=== PATIENT | female | born 1955 | race Caucasian/White ===

== ENCOUNTER 2017-01-03 07:51 | Inpatient (IN) ==
[2017-01-03] MEDS ORDERED: ONDANSETRON 4 MG/2 ML VIAL IV STA (08:14)
[2017-01-03] MEDS ORDERED: SODIUM CHLORIDE 0.9% 500 ML IV STA (08:14)
[2017-01-03] MEDS ORDERED: AMPICILLIN/SULBACTAM 3,000 MG in SODIUM CHLORIDE 0.9% 100 ML IV STA (08:14)
[2017-01-03] MEDS ORDERED: ONDANSETRON 4 MG/2 ML VIAL ONE (08:34)
[2017-01-03] MEDS ORDERED: AMPICILLIN/SULBACTAM 3,000 MG VIAL ONE (08:34)
[2017-01-03 08:42] LABS: Basophils % 0.1 % (0.0-0.8); Hematocrit 42.2 VOL% (35.7-47.0); Hemoglobin 15.3 GM/DL (12.0-16.0); Immature Granulocytes % 4.2 %; Immature Granulocytes Absolute 0.97 #; Lymphocytes # 1.4 10*3/uL (1.4-4.0); Lymphocytes % 6.3 % (21.3-54.2); Mean Corpuscular HGB Conc 36.3 GM/DL (32-36); Mean Corpuscular Hemoglobin 33 PG (27-34); Mean Platelet Volume 10.8 FL (9.6-12.0); Monocytes % 8.6 % (1.7-12.7); Neutrophils # 18.5 10*3/uL (1.4-7.4); Neutrophils % 80.8 % (38.7-73.9); Platelet Count 271 T/CUMM (130-400); Red Blood Count 4.69 MC/CUMM (3.8-5.5); Red Cell Distribution Width 13.4 % (9.3-17.3)
--- NOTE | 2017-01-03 08:57 | XRay Report ---
XR chest 1V portable Indication: Shortness of breath Comparison: Chest x-ray 12/20/2013. Technique: Portable AP chest was performed. Findings: Ill-defined density right lung apex may reflect confluence of shadows. Emphysematous changes are suggested with interstitial pattern similar to comparison study. Heart size is normal. Calcified granuloma right lower lobe is suggested. Additional density within the soft tissues of the left breast is demonstrated superior to the nipple shadow. Significance is uncertain. Bones and soft tissues are stable. Impression: 1. Emphysematous changes are suggested. No specific evidence of acute superimposed pathology is demonstrated. 2. Density within the soft tissues of the superior left breast is of uncertain significance. Correlation with mammography is recommended. 01/03/2017 8:52 AM PROCEDURE INTERPRETED AT [facility] DEPARTMENT OF RADIOLOGY Final Report Signed by: Dr. Jake Jo
[2017-01-03 08:59] LABS: Band Neutrophils 13 % (0-10); Eosinophils 2 % (0-10); Lymphocytes 3 % (20-55); Nucleated Red Blood Cells 1 (0-5); Segmented Neutrophils 72 % (50-85); Total Cells Counted 100
[2017-01-03 09:00] LABS: Platelet Estimate Normal
[2017-01-03 09:05] LABS: Lactic Acid 4.4 MMOL/L (0.4-2.0)
[2017-01-03 09:15] LABS: Alanine Aminotransferase 34 U/L (13-56); Albumin 2.1 G/DL (3.4-5.0); Alkaline Phosphatase 122 U/L (45-117); Aspartate Amino Transferase 66 U/L (0-37); Blood Urea Nitrogen 61 MG/DL (7-18); Calcium 7.6 MG/DL (8.5-10.1); Glucose 165 MG/DL (74-106); Magnesium 2.5 MG/DL (1.8-2.4); Osmolality,Calculated 271.5 MOS/KG (273-304); Potassium 3.8 MMOL/L (3.5-5.1); Sodium 125 MMOL/L (136-145); Total Protein 7.1 G/DL (6.4-8.3); Troponin I Only < 0.015 NG/ML (0.00-0.045)
[2017-01-03] MEDS ORDERED: SODIUM CHLORIDE 0.9% 1,000 ML IV STA (09:19)
--- NOTE | 2017-01-03 10:00 | CT Report ---
CT abdomen pelvis w con Indication: Generalized abdominal pain. Comparison: None. Technique: CT of the abdomen and pelvis was performed following administration of intravenous contrast. The CT examination was performed using one or more of the following dose reduction techniques: Automatic exposure control, adjustment of the mA and kV according to patient size, or iterative reconstruction techniques. Findings: Calcified nodule right lower lobe compatible with granuloma is demonstrated. Lungs demonstrate emphysematous changes. No pleural effusions are present. Moderately sized hiatal hernia is demonstrated. There is diffuse enlargement of large bowel and diffuse wall thickening involving large bowel from the level of the cecum through the sigmoid colon. Diverticula in the region of the sigmoid colon are suggested. The large bowel wall measures up to 12 13 mm in thickness in the region of the splenic flexure and in the region of the cecum, the bowel wall measures up to 14 mm in thickness. There does appear to be enhancement. The SMA and MARTIN are patent. Large amount of ascites is present. There is no evidence of free air. Moderately advanced atherosclerotic calcification of the aorta, renal arteries, and iliac arteries is demonstrated. The appearance of the liver, gallbladder, spleen, pancreas, and adrenal glands is unremarkable. With exception of the hiatal hernia described above, stomach and duodenum demonstrate no significant abnormality. No specific abnormality of small bowel is present. Appendix cannot be identified. Urinary bladder is grossly distended. The uterus and right ovary is grossly unremarkable in appearance. Within the left pelvis, there is a fluid filled curvilinear tubular structure possibly reflective of the left fallopian tube. No acute osseous pathology is demonstrated. Facet joint degenerative changes are noted within the lower lumbar spine. Soft tissues and musculature of the body wall demonstrate no significant abnormalities. Impression: 1. Grossly abnormal appearance of the colon is demonstrated. There is diffuse wall thickening throughout the large bowel and additionally present at the level of the sigmoid colon, scattered diverticula are present. This appearance could reflect colitis as could be seen with C. difficile or other infectious etiologies. Vascular supply appears to be fairly well preserved with flow noted within SMA and MARTIN as well as celiac branches. 2. A moderate to large amount of ascites is demonstrated. 3. Tubular structure within the left pelvis possibly reflects fluid-filled fallopian tube or a nonopacified small bowel. 4. Moderately advanced atherosclerotic calcification of the aorta and iliac arteries is demonstrated. 5. A moderate hiatal hernia is present. 01/03/2017 9:46 AM PROCEDURE INTERPRETED AT [facility] DEPARTMENT OF RADIOLOGY Final Report Signed by: Dr. Jake Jo
--- NOTE | 2017-01-03 10:01 | Emergency Department Note ---
Vel Alonzo Manpreet, am scribing for, and in the presence of, Alonso Kothari MD 08:15. Taye Alonzo Doug C, MD, personally performed the services described in this documentation, ascribed by Tony Crowder in my presence, and it is both accurate and complete [id number] . Arrival - Arrival Chief Complaint: Nausea/Vomiting/Diarrhea Stated Complaint: N/V for 3 days ED Nursing Triage Note: Pt c/o Diarrhea and weakness x 3 days. Mode of Arrival: Wheelchair Limitations: No Limitations Source: Patient - History of Present Illness HPI Narrative: Patient 61-year-old white female presents emergency room complaining of abdominal pain, bloating and diarrhea for 3 days. Patient states she says subjective fever and she is also had chills but she denies any nausea or vomiting. She has not seen any blood in her stool and she denies melena. Patient states her appetite's been diminished but she denies dyspepsia or dysphasia. Patient states she has never had anything like this before. She does admit to heavy alcohol abuse in the past but states she has not drank in over 5 years. She denies any previous surgeries. Onset (ago): day(s) Consistency: constant Severity scale (1-10): 3 Allergies/Adverse Reactions: Allergies Allergy/AdvReac Type Severity Reaction Status Date / Time No Known Allergies Allergy Verified 01/03/17 07:56 Review of System - Review of System 12 point system: reviewed and no additional remarkable complaints except as stated - Review of System Constitutional: Present: chills, fever, weakness. Absent: diaphoresis Respiratory: Absent: cough Cardiovascular: Absent: chest pain Gastrointestinal: Present: abdominal pain, nausea, diarrhea. Absent: vomiting, constipation, hematemesis, melena, hematochezia Genitourinary female: Absent: dysuria, frequency Musculoskeletal: Absent: back pain Skin: Absent: rash, lesions Neurological: Absent: headache Psychiatric: Absent: anxiety, depression Endocrine: Absent: fatigue, polydipsia, polyuria Hematological/Lymphatic: Absent: easy bleeding, easy bruising Medical,Surgical,& Family Hx - Medical History Cardio: History of: Hypertension Respiratory: History of: COPD Musculoskeletal: History of: Back/Neck Problems - Surgical History Surgical History: noncontributory (Patient denies prior surgeries) - Family History Family History: Reports;: Family Heart Disease (Both mother and father of heart disease.) Denies;: Family Cancer - Social History Smoking Status: Current every day smoker Exam Vital Signs: Vital Signs Temperature 98.1 F 01/03/17 09:39 Pulse Rate 126 H 01/03/17 09:39 Respiratory Rate 20 01/03/17 09:39 Blood Pressure 143/102 01/03/17 09:39 O2 Sat by Pulse Oximetry 98 01/03/17 07:53 - General General appearance: alert, in distress (Patient is noted to have tachypnea) - Head Head exam: Present: atraumatic, normocephalic, normal inspection - Eye Eye exam: Present: normal appearance, PERRL, EOMI - ENT ENT exam: Present: normal exam, normal oropharynx, mucous membranes dry - Neck Neck exam: Present: normal inspection, full ROM, trachea midline, tenderness. Absent: thyromegaly - Chest Chest inspection: Present: normal inspection, symmetric chest wall rise. Absent : tenderness - Respiratory Respiratory exam: Present: normal lung sounds bilaterally. Absent: accessory muscle use - Cardiovascular Cardiovascular exam: Present: normal rhythm, tachycardia, normal heart sounds. Absent: regular rate, murmur, rubs - Abdominal Exam Abdominal exam: Present: distention, tenderness (Diffuse direct tenderness), diminished bowel sounds, other (Tympany to percussion in all quadrants). Absent : soft, guarding, rebound, normal bowel sounds - Extremities Exam Extremities exam: Present: normal inspection, full ROM. Absent: tenderness - Back Exam Back exam: Present: normal inspection, full ROM. Absent: tenderness - Neurological Exam Neurological exam: Present: alert, oriented X3, CN II-XII intact, reflexes normal. Absent: motor sensory deficit - Psychiatric Psychiatric exam: Present: normal affect, normal mood - Skin Skin exam: Present: warm, dry, intact, normal color. Absent: pallor Course Course Narrative: Patient's clinical presentation, laboratory radiograph findings were discussed with Kemi who is covering the hospitalist service. She will arrange for patient to be seen here in the emergency room and intensive care bed will be sought. Patient is aware of the critical nature of her illness. Results - Labs CBC & BMP: 01/03/17 08:23 01/03/17 08:23 Lab Results: I have reviewed the patients labs Labs: Laboratory Tests 01/03/17 08:23 WBC 23.0 H RBC 4.69 Hgb 15.3 Hct 42.2 MCHC 36.3 H Neut % (Auto) 80.8 H Lymph % (Auto) 6.3 L Neut # (Auto) 18.5 H [place] # (Auto) 2.0 H Laboratory Tests 01/03/17 01/03/17 08:23 08:23 WBC 23.0 H MCHC 36.3 H Neut % (Auto) 80.8 H Lymph % (Auto) 6.3 L Neut # (Auto) 18.5 H [place] # (Auto) 2.0 H Band Neutrophils 13 H Lymphocytes 3 L Sodium 125 L Chloride 93 L Carbon Dioxide 17 L Anion Gap 18.8 H BUN 61 H Creatinine 1.20 H BUN/Creatinine Ratio 50.00 H Glucose 165 H Calculated Osmolality 271.5 L Lactic Acid 4.4 H Calcium 7.6 L Magnesium 2.5 H AST 66 H Alkaline Phosphatase 122 H Albumin 2.1 L Globulin 5.0 H Albumin/Globulin Ratio 0.4 L Lipase 45.0 L - Diagnostic Findings Procedure: Chest x-ray: report reviewed by me (1. Emphysematous changes are suggested. No specific evidence of acute superimposed pathology is demonstrated. 2. Density within the soft tissues of the superior left breast is one of uncertain significance. Correlation with mammography is recommended.), CT Abdomen and Pelvis: report reviewed by me (Prominent colonic wall thickening and ascites. I do not see any free air. Radiologist final report is pending.) Disposition Clinical Impression: C. difficile colitis, Metabolic acidosis, Ascites Case discussed with: patient, patient's family Disposition: Still a Patient Condition: Critical Time of Disposition: 10:01
--- NOTE | 2017-01-03 10:03 | EKG Report ---
Stationary ECG Study [facility] ER Test Date: 01/03/2017 10:01:43 AM Pat Name: SHAWN BHAT Department: Room: Gender: F Head Of History: : 1955 Requested by: Jarad Krueger Order Number: [id number] Reading MD: CEE HIDALGO Intervals Melvin Rate: 115 P: 31 OK: 168 QRS: 121 QRSD: 87 T: 69 QT: 324 QTc: 392 Interpretive Statements SINUS TACHYCARDIA POSSIBLE RIGHT VENTRICULAR HYPERTROPHY SEPTAL MYOCARDIAL INFARCTION, OF INDETERMINATE AGE Electronically Signed On 01-03-17 16:33:28 CDT by CEE HIDALGO [email or web address]
[2017-01-03] MEDS ORDERED: PROMETHAZINE 25 MG/1 ML VIAL IM PRN (10:27)
[2017-01-03] MEDS ORDERED: SODIUM CHLORIDE 0.9% 1,000 ML IV SCH (10:30)
--- NOTE | 2017-01-03 10:33 | Hospitalist History & Physical ---
<Kemi Ding - Last Filed: 01/03/17 10:31> Assessment and Plan - Time spent with patient Time spent with patient: Greater than 30 minutes (1) Leukocytosis Status: Acute Assessment and plan: Ms. Bedoya is a 61-year-old white female with history of COPD and chronic back pain admitted by the hospitalist service in severe sepsis due to C. difficile colitis. Per severe sepsis protocol patient has leukocytosis, tachycardia, tachypnea, and lactic acid greater than 4. Patient will be admitted to the ICU at least overnight. Will initiate the sepsis protocol given IV fluids and rechecking her labs in the morning. She will be started on IV Flagyl and medicines for nausea and diarrhea. Patient denies history of hypertension but her blood pressures are elevated. Will give her some as needed meds for this. She also has acute kidney injury due to dehydration and this should correct with her IV fluids. Will restart her home medicines when they get entered into the system. Dr. Cheatham will see and examine patient and further recommendations to follow. Current Visit: Yes (2) Hyperglycemia Status: Acute Current Visit: Yes (3) Severe sepsis Status: Acute Current Visit: Yes (4) Ascites Status: Acute Current Visit: Yes (5) C. difficile colitis Status: Acute Current Visit: Yes (6) Metabolic acidosis Status: Acute Current Visit: Yes History of Present Illness Chief complaint: Abdominal pain/diarrhea History of present illness: Ms. Bedoya is a 61 year old female with history of COPD and chronic back pain presenting to the ED with a 3 day history of abdominal pain and cramping with copious amounts of watery diarrhea. Patient states her family doctor is Dr. Gtz and he prescribed her some antibiotics about a month ago for sinus infection. She states it may have been Augmentin. She states her appetite has been reduced but she denies nausea/vomiting. Her abdomen is distended and tender throughout. She is a smoker and has a history of COPD and she used to be a heavy drinker but quit approximately 5 years ago. She also states her boyfriend is home with diarrhea as well but he is not as sick as she is. Patient complains of subjective fevers but denies headache, blurred vision, shortness of breath, chest pain, or lower extremity edema. Upon exam patient is pale with her skin dry. She is cachectic, tachycardic, hypertensive, and has positive C. difficile stool. Her CT exam shows a large amount of ascites and diffuse enlargement of large bowel and diffuse wall thickening involving the large bowel from the level of the cecum to the sigmoid. Large bowel wall measures up to 12-13 mm in thickness which is consistent with colitis. Her white count is elevated at 23, sodium low at 125, anion gap is elevated, BUN and creatinine are elevated, and her lactic acid is 4.4. Patient's case was discussed with Dr. Kothari the ED physician and Dr. Cheatham the admitting hospitalist, and it was agreed patient would be admitted for further evaluation and treatment. Allergies Allergy/AdvReac Type Severity Reaction Status Date / Time No Known Allergies Allergy Verified 01/03/17 07:56 Medical,Surgical,& Family Hx - Medical History Cardio: History of: Hypertension Respiratory: History of: COPD Musculoskeletal: History of: Back/Neck Problems - Surgical History Cardiac Surgeries: Patient Denies: Vascular Access Devices Abdominal Surgeries: Patient denies: Abdominal Surgery - Family History Family History: Reports;: Family Heart Disease (Both mother and father of heart disease.) Denies;: Family Cancer - Social History Smoking Status: Current every day smoker Frequency of Alcohol Use: None Type of Drug Use: None Marital Status: Single Lives With:: Significant Other Functional capacity: independent ambulation Review of systems: A complete 10 system review of systems was obtained and pertinent positives and negatives per HPI Exam - Constitutional Vitals: Period Temp Pulse Resp BP Sys/Mccall Pulse Ox Last 24 Hr 98.1 F-98.1 F 126-126 20-20 143-143/102-102 98 Exam: 61-year-old white female, pale, moderate distress, alert and oriented Constitutional System: Moderate distress. [No] tremulousness. Head: Normocephalic, atraumatic. Ears, Nose and Throat System: No evidence of Otitis or Mastoiditis. No epistaxis or discharge mucous membranes dry Eyes System: Pupils equal, round, and reactive. Extraocular muscles intact. Neck: Supple, without adenopathy, [No] jugular venous distention. No thyromegaly , neck mass, or prior surgery apparent. Respiratory System: Chest decreased air movement to auscultation. Cardiovascular System: Heart with tachycardic rate and rhythm. [No] murmur. GI System: Abdomen distended and tympanic, tender throughout. Hyper active bowel sounds present. Musculoskeletal System: limbs with [no] pedal edema. [Full] distal pulses. Neurological System: [No discernable] sensory deficit. [No] aphasia Psychiatric System: Conversation is [rational] Results - Labs CBC & BMP: 01/03/17 08:23 01/03/17 08:23 - EKG EKG results: sinus rhythm EKG shows: tachycardia - Impressions Possible right ventricular hypertrophy - Diagnostic Findings Procedure: Chest x-ray: report reviewed by me (Emphysematous changes suggested. Density within the soft tissues of the superior left breast of uncertain significance.), CT Abdomen and Pelvis: report reviewed by me (Grossly abnormal appearance of the colon demonstrated. Diffuse wall thickening throughout the large bowel and additionally present at the level of the sigmoid colon, scattered diverticula are present. The appearance could reflect colitis seen with C. difficile or other infectious etiology. Vascular supply is well preserved. Large amount of ascites is demonstrated. Tubular structure within the left pelvis possibly reflecting reflects fluid-filled fallopian tube or nonopacified small bowel. Moderate hiatal hernia) <New Cheatham - Last Filed: 01/03/17 14:40> Assessment and Plan - Time spent with patient Time spent with patient: Less than 30 minutes History of Present Illness History of present illness: Patient seen and examined independently of JAMES Ding, agree with history, assessment and plan as documented. 61 y/o WF with abdominal pain and diarrhea found to have c.diff. She has leukocytosis and hyponatremia. She is being admitted for sepsis secondary to c.diff colitis. Will treat her as severe c.diff for now, with iv flagyl and po vancomycin. Monitor closely in the ICU. F/ u blood cultures Exam - Constitutional Vitals: Period Temp Pulse Resp BP Sys/Mccall Pulse Ox Last 24 Hr 116 20 189/97 99 Results - Labs CBC & BMP: 01/03/17 08:23 01/03/17 08:23
[2017-01-03] MEDS ORDERED: SODIUM CHLORIDE 0.9% 1,500 ML IV ONE (10:46)
[2017-01-03 10:50] LABS: Apearance,Urine CLEAR (Clear); Bacteria,Urine Occasional /HPF (Few); Bilirubin,Urine Negative (Negative); Blood, Urine Negative (Negative); Glucose,Urine (UA) Negative (Negative); Hyaline Casts,Urine 7 /LPF (0-3); Ketones,Urine 5 mg/dL (Negative); Mucus,Urine Occasional /LPF (Occasional); Nitrite,Urine Negative (Negative); Protein,Urine 30 MG/DL; RBC,Urine 2 /HPF (0-4); Squamous Epithelial Cell,Urine Occasional /HPF (0-10); Urine Color Amber (Yellow); Urine Specific Gravity 1.027 (1.001-1.035); WBC,Urine 1 /HPF (0-6)
[2017-01-03] MEDS: PANTOPRAZOLE 40 MG TABLET PO SCH (11:25)
[2017-01-03] MEDS: LACTOBACILLUS ACIDOPHILUS/BULGARICUS CAPLET PO SCH (11:25)
[2017-01-03] MEDS: metroNIDAZOLE INJ 500 MG in PREMIX 1 EACH IV SCH ×3 (11:25→23:25)
[2017-01-03] MEDS: ENOXAPARIN 40 MG/0.4 ML SYRINGE SUBCUT SCH (11:25)
[2017-01-03] MEDS: NICOTINE 21 MG/24 HR PATCH TRANSDERM PRN (11:25)
[2017-01-03] MEDS: CHOLESTYRAMINE 4 GM PACK PO SCH ×2 (11:26→20:29)
[2017-01-03] MEDS: PARoxetine 10 MG TABLET PO SCH (13:44)
[2017-01-03] MEDS: amLODIPine 5 MG TABLET PO SCH (13:45)
[2017-01-03] MEDS ORDERED: busPIRone 5 MG TABLET PO SCH (15:00)
[2017-01-03] MEDS: VANCOMYCIN 50 MG/ML 60 ML/BOTTLE PO SCH (17:09)
[2017-01-03] MEDS: hydrALAZINE 25 MG TABLET PO PRN ×2 (17:42→20:29)
[2017-01-03] MEDS: MIRTAZAPINE 15 MG TABLET PO SCH (20:29)
[2017-01-03] MEDS ORDERED: busPIRone 10 MG TABLET PO SCH (21:00)
[2017-01-03] MEDS: DESITIN 4OZ/NYSTATIN 15 GRAM MIXTURE PASTE TOP SCH (21:27)
[2017-01-03] MEDS: MORPHINE 2 MG/1 ML SYRINGE IV PRN (22:36)
[2017-01-03] MEDS: busPIRone 5 MG TABLET PO SCH (22:36)
[2017-01-04] MEDS: VANCOMYCIN 50 MG/ML 60 ML/BOTTLE PO SCH ×5 (00:13→18:47)
[2017-01-04] MEDS: hydrALAZINE 25 MG TABLET PO PRN (01:03)
[2017-01-04] MEDS: MORPHINE 2 MG/1 ML SYRINGE IV PRN (03:09)
[2017-01-04] MEDS: metroNIDAZOLE INJ 500 MG in PREMIX 1 EACH IV SCH ×4 (04:10→22:16)
[2017-01-04 05:16] LABS: Basophils % 0.2 % (0.0-0.8); Hematocrit 36.8 VOL% (35.7-47.0); Hemoglobin 13.3 GM/DL (12.0-16.0); Immature Granulocytes % 6.4 %; Immature Granulocytes Absolute 1.14 #; Lymphocytes # 1.1 10*3/uL (1.4-4.0); Mean Corpuscular HGB Conc 36.1 GM/DL (32-36); Mean Corpuscular Hemoglobin 32 PG (27-34); Mean Corpuscular Volume 89.3 FL (87-102); Mean Platelet Volume 10.9 FL (9.6-12.0); Monocytes # 1.4 10*3/uL (0.11-0.8); Monocytes % 7.9 % (1.7-12.7); NRBC # 0.09 10*3/uL; Neutrophils # 14.2 10*3/uL (1.4-7.4); Neutrophils % 79.5 % (38.7-73.9); Platelet Count 243 T/CUMM (130-400); Red Blood Count 4.12 MC/CUMM (3.8-5.5); Red Cell Distribution Width 13.3 % (9.3-17.3); White Blood Count 17.8 T/CUMM (4-12)
[2017-01-04 05:43] LABS: Calcium 6.2 MG/DL (8.5-10.1); Magnesium 2.3 MG/DL (1.8-2.4); Osmolality,Calculated 277.2 MOS/KG (273-304)
[2017-01-04 05:56] LABS: Band Neutrophils 8 % (0-10); Hypochromasia 1+; Lymphocytes 2 % (20-55); Metamyelocytes 3 %; Platelet Estimate Adequate; Promyelocytes 1 %; Segmented Neutrophils 85 % (50-85); Total Cells Counted 100
[2017-01-04] MEDS: PARoxetine 10 MG TABLET PO SCH (08:51)
[2017-01-04] MEDS: LACTOBACILLUS ACIDOPHILUS/BULGARICUS CAPLET PO SCH (08:51)
[2017-01-04] MEDS: busPIRone 5 MG TABLET PO SCH ×3 (08:52→20:49)
[2017-01-04] MEDS: PANTOPRAZOLE 40 MG TABLET PO SCH (08:52)
--- NOTE | 2017-01-04 08:52 | XRay Report ---
XR abdomen 1V Indication: Abdominal pain. Comparison: None. Technique: Supine AP image of the abdomen was obtained. Findings: Small and large bowel loops are filled with gas and demonstrating a nonspecific pattern. No distinct free air is present. Vascular calcifications are noted bilaterally within the iliac vessels. Lucency within the upper right abdomen extends into the lower chest and is favored to represent artifact. Impression: 1. No specific abnormality of the bowel gas pattern is demonstrated. Gas-filled loops of large and small bowel are present without discrete evidence of extraluminal air within the abdomen. 01/04/2017 8:48 AM PROCEDURE INTERPRETED AT [facility] DEPARTMENT OF RADIOLOGY Final Report Signed by: Dr. Jake Jo
[2017-01-04] MEDS: amLODIPine 5 MG TABLET PO SCH (08:53)
[2017-01-04] MEDS: CHOLESTYRAMINE 4 GM PACK PO SCH ×2 (08:54→20:50)
[2017-01-04] MEDS: DESITIN 4OZ/NYSTATIN 15 GRAM MIXTURE PASTE TOP SCH ×2 (10:40→22:19)
--- NOTE | 2017-01-04 10:55 | Hospitalist Progress Note ---
Assessment and Plan (1) C. difficile colitis Status: Acute Assessment and plan: Treating as severe with iv flagyl and po vanc, might be able to de-escalate soon Current Visit: Yes (2) Metabolic acidosis Status: Acute Assessment and plan: Improving Lactic acid is trending down Current Visit: Yes (3) Leukocytosis Status: Acute Assessment and plan: Improving Current Visit: Yes Hospitalist: Subjective Interval history: No acute events overnight. Patient did have intermittent confusion. Tolerating a regular diet. Leukocytosis is trending down. Blood pressure is elevated, will add hctz. Will transfer to the floor today. Exam - Constitutional Vitals: Period Temp Pulse Resp BP Sys/Mccall Pulse Ox Last 24 Hr 97.5 F-98.7 F 93-126 20-35 136-194/72-127 90-99 General appearance: under weight - Head Head exam: Present: normocephalic, atraumatic - Eye Eye exam: Present: EOMI Pupils: Present: NESTOR - ENT ENT exam: Present: normal exam - Neck Neck exam: Present: normal inspection - Respiratory Respiratory exam: Present: clear to auscultation bilaterally - Cardiovascular Cardiovascular exam: Present: regular rate and rhythm - GI/Abdominal GI/Abdominal exam: Present: normal bowel sounds, soft. Absent: tenderness, rebound - Extremities Exam Extremities exam: Present: normal inspection - Back Exam Back exam: Present: normal inspection - Neurological Exam Neurological exam: Present: alert - Psychiatric Psychiatric exam: Present: normal affect, normal mood - Skin Skin exam: Present: warm, intact Results - Labs CBC & BMP: 01/04/17 04:56 01/04/17 04:56
[2017-01-04] MEDS: ENOXAPARIN 40 MG/0.4 ML SYRINGE SUBCUT SCH (11:01)
[2017-01-04] MEDS: hydroCHLOROthiazide 12.5 MG CAPSULE PO SCH (11:06)
[2017-01-04] MEDS: SODIUM CHLORIDE 0.9% 1,000 ML IV SCH (16:44)
[2017-01-04] MEDS: MIRTAZAPINE 15 MG TABLET PO SCH (20:49)
[2017-01-05] MEDS: SODIUM CHLORIDE 0.9% 1,000 ML IV SCH ×3 (00:41→20:07)
[2017-01-05] MEDS: VANCOMYCIN 50 MG/ML 60 ML/BOTTLE PO SCH ×4 (00:41→17:18)
[2017-01-05 03:23] LABS: Basophils % 0.1 % (0.0-0.8); Eosinophils % 0.1 % (0.00-10.9); Hematocrit 34.5 VOL% (35.7-47.0); Hemoglobin 12.4 GM/DL (12.0-16.0); Immature Granulocytes % 7.9 %; Immature Granulocytes Absolute 1.68 #; Lymphocytes # 1.3 10*3/uL (1.4-4.0); Lymphocytes % 6.3 % (21.3-54.2); Mean Corpuscular HGB Conc 35.9 GM/DL (32-36); Mean Corpuscular Hemoglobin 33 PG (27-34); Mean Corpuscular Volume 90.8 FL (87-102); Mean Platelet Volume 10.5 FL (9.6-12.0); Monocytes # 1.3 10*3/uL (0.11-0.8); Monocytes % 6.2 % (1.7-12.7); NRBC # 0.11 10*3/uL; Neutrophils # 16.9 10*3/uL (1.4-7.4); Neutrophils % 79.4 % (38.7-73.9); Platelet Count 279 T/CUMM (130-400); Red Cell Distribution Width 13.5 % (9.3-17.3); White Blood Count 21.2 T/CUMM (4-12)
[2017-01-05 03:25] LABS: Calcium 6.6 MG/DL (8.5-10.1); Magnesium 2.4 MG/DL (1.8-2.4); Osmolality,Calculated 275.1 MOS/KG (273-304); Potassium 4.1 MMOL/L (3.5-5.1)
[2017-01-05 04:45] LABS: Band Neutrophils 3 % (0-10); Lymphocytes 6 % (20-55); Metamyelocytes 5 %; Myelocytes 6 %; Nucleated Red Blood Cells 1 (0-5); Platelet Estimate Normal; Promyelocytes 2 %; Segmented Neutrophils 73 % (50-85); Total Cells Counted 100
[2017-01-05] MEDS: metroNIDAZOLE INJ 500 MG in PREMIX 1 EACH IV SCH ×4 (05:16→20:02)
[2017-01-05] MEDS: ALBUTEROL 2.5 MG/3 ML NEB RESP TX PRN (05:30)
[2017-01-05] MEDS ORDERED: amLODIPine 10 MG TABLET PO SCH (09:30)
[2017-01-05] MEDS: CHOLESTYRAMINE 4 GM PACK PO SCH ×2 (10:57→20:03)
[2017-01-05] MEDS: PARoxetine 10 MG TABLET PO SCH (10:57)
[2017-01-05] MEDS: amLODIPine 5 MG TABLET PO SCH ×2 (10:57→11:05)
[2017-01-05] MEDS: ENOXAPARIN 40 MG/0.4 ML SYRINGE SUBCUT SCH (10:57)
[2017-01-05] MEDS: PANTOPRAZOLE 40 MG TABLET PO SCH (10:57)
[2017-01-05] MEDS: busPIRone 5 MG TABLET PO SCH ×3 (10:57→20:03)
[2017-01-05] MEDS: METOPROLOL SUCCINATE XL 50 MG TABLET PO SCH (10:57)
[2017-01-05] MEDS: LACTOBACILLUS ACIDOPHILUS/BULGARICUS CAPLET PO SCH (10:57)
[2017-01-05] MEDS: DESITIN 4OZ/NYSTATIN 15 GRAM MIXTURE PASTE TOP SCH ×2 (10:58→20:09)
[2017-01-05] MEDS: hydroCHLOROthiazide 12.5 MG CAPSULE PO SCH (11:05)
--- NOTE | 2017-01-05 13:56 | Hospitalist Progress Note ---
Assessment and Plan - Time spent with patient Time spent with patient: Greater than 30 minutes (1) C. difficile colitis Status: Acute Assessment and plan: Band count improving, leukocytosis has worsened slightly though it is likely lagging. Continue current treatment. Will obtain a repeat KUB tomorrow. Current Visit: Yes (2) Hypertension Status: Acute Assessment and plan: Continue current management. Current Visit: Yes Hospitalist: Subjective Interval history: No complaints or overnight events. Exam - Constitutional Vitals: Period Temp Pulse Resp BP Sys/Mccall Pulse Ox Last 24 Hr 97.2 F-98.2 F 85-114 18-24 118-184/71-90 90-99 General appearance: no acute distress - Head Head exam: Present: normocephalic, atraumatic - Eye Eye exam: Present: EOMI Pupils: Present: NESTOR - ENT ENT exam: Present: normal exam - Neck Neck exam: Present: normal inspection - Respiratory Respiratory exam: Present: clear to auscultation bilaterally. Absent: rhonchi, wheezes - Cardiovascular Cardiovascular exam: Present: regular rate and rhythm. Absent: gallop, rubs, systolic murmur - GI/Abdominal GI/Abdominal exam: Present: normal bowel sounds, distended, tenderness, soft. Absent: firm, guarding, rebound - Extremities Exam Extremities exam: Present: normal inspection. Absent: calf tenderness, edema Results - Labs CBC & BMP: 01/05/17 01:54 01/05/17 01:54 Lab Results: I have reviewed the past 24 hour labs
[2017-01-05] MEDS: MIRTAZAPINE 15 MG TABLET PO SCH (20:03)
[2017-01-06] MEDS: VANCOMYCIN 50 MG/ML 60 ML/BOTTLE PO SCH ×5 (00:58→21:35)
[2017-01-06] MEDS: metroNIDAZOLE INJ 500 MG in PREMIX 1 EACH IV SCH ×4 (03:02→21:35)
[2017-01-06] MEDS: ACETAMINOPHEN 325 MG TABLET PO PRN ×2 (03:22→21:36)
[2017-01-06 06:55] LABS: Basophils # 0.2 10*3/uL (0.0-0.2); Basophils % 0.9 % (0.0-0.8); Eosinophils % 0.1 % (0.00-10.9); Hematocrit 33.9 VOL% (35.7-47.0); Immature Granulocytes % 9.7 %; Immature Granulocytes Absolute 1.69 #; Lymphocytes # 1.2 10*3/uL (1.4-4.0); Lymphocytes % 6.8 % (21.3-54.2); Mean Corpuscular HGB Conc 35.4 GM/DL (32-36); Mean Corpuscular Hemoglobin 32 PG (27-34); Mean Corpuscular Volume 90.9 FL (87-102); Mean Platelet Volume 10.3 FL (9.6-12.0); Monocytes # 1.3 10*3/uL (0.11-0.8); Monocytes % 7.5 % (1.7-12.7); NRBC # 0.16 10*3/uL; Neutrophils # 13.1 10*3/uL (1.4-7.4); Platelet Count 291 T/CUMM (130-400); Red Blood Count 3.73 MC/CUMM (3.8-5.5); Red Cell Distribution Width 14.2 % (9.3-17.3); White Blood Count 17.4 T/CUMM (4-12)
[2017-01-06 07:21] LABS: Band Neutrophils 4 % (0-10); Hypochromasia 1+; Lymphocytes 4 % (20-55); Nucleated Red Blood Cells 2 (0-5); Platelet Estimate Normal; Segmented Neutrophils 88 % (50-85); Total Cells Counted 100
[2017-01-06 07:26] LABS: Calcium 6.7 MG/DL (8.5-10.1); Potassium 3.8 MMOL/L (3.5-5.1)
[2017-01-06] MEDS: busPIRone 5 MG TABLET PO SCH ×3 (09:15→21:36)
[2017-01-06] MEDS: LACTOBACILLUS ACIDOPHILUS/BULGARICUS CAPLET PO SCH (09:17)
[2017-01-06] MEDS: amLODIPine 5 MG TABLET PO SCH (09:17)
[2017-01-06] MEDS: PANTOPRAZOLE 40 MG TABLET PO SCH (09:17)
[2017-01-06] MEDS: ENOXAPARIN 40 MG/0.4 ML SYRINGE SUBCUT SCH (09:17)
[2017-01-06] MEDS: METOPROLOL SUCCINATE XL 50 MG TABLET PO SCH (09:17)
[2017-01-06] MEDS: PARoxetine 10 MG TABLET PO SCH (09:17)
[2017-01-06] MEDS: SODIUM CHLORIDE 0.9% 1,000 ML IV SCH ×3 (09:18→21:37)
[2017-01-06] MEDS: CHOLESTYRAMINE 4 GM PACK PO SCH (09:18)
[2017-01-06] MEDS: DESITIN 4OZ/NYSTATIN 15 GRAM MIXTURE PASTE TOP SCH ×2 (09:19→21:37)
--- NOTE | 2017-01-06 10:46 | XRay Report ---
XR KUB Indication: Generalized pain Comparison: Abdominal x-ray dated January 04, 2017 Technique: Frontal views of the abdomen Findings: Interval worsened small bowel dilatation throughout the abdomen measuring up to 6 cm suggestive of ileus or obstruction. Diffuse osteopenia. IMPRESSION: As above. PROCEDURE INTERPRETED AT [facility] DEPARTMENT OF RADIOLOGY Final Report Signed by: Dr Louis John
[2017-01-06] MEDS: diphenhydrAMINE CAP 25 MG CAPSULE PO PRN ×2 (11:38→21:35)
--- NOTE | 2017-01-06 13:01 | Hospitalist Progress Note ---
Assessment and Plan - Time spent with patient Time spent with patient: Greater than 30 minutes (1) C. difficile colitis Status: Acute Assessment and plan: WBC remains elevated. Bands of 4. Increase vancomycin to 500mg po q6h. Continue metronidazole. Consult GI. May consider ID. Current Visit: Yes (2) Ileus Status: Acute Assessment and plan: Consult Surgery, keep NPO. Current Visit: Yes (3) Rash Status: Acute Assessment and plan: Etiology unclear, will continue to follow. Current Visit: Yes (4) Hypertension Status: Acute Assessment and plan: Continue current management. Current Visit: Yes Hospitalist: Subjective Interval history: Complains of abdominal distension and pain. Passing less flatus. Rash today on the abdodmen and upper thighs. Exam - Constitutional Vitals: Period Temp Pulse Resp BP Sys/Mccall Pulse Ox Last 24 Hr 96.3 F-98 F 84-94 18-24 143-171/74-82 92-97 General appearance: no acute distress - Head Head exam: Present: normocephalic, atraumatic - Eye Eye exam: Present: EOMI Pupils: Present: NESTOR - ENT ENT exam: Present: normal exam - Neck Neck exam: Present: normal inspection - Respiratory Respiratory exam: Present: clear to auscultation bilaterally. Absent: rhonchi, wheezes - Cardiovascular Cardiovascular exam: Present: regular rate and rhythm. Absent: gallop, rubs, systolic murmur - GI/Abdominal GI/Abdominal exam: Present: distended, hypoactive bowel sounds, soft. Absent: firm, guarding, tenderness, rebound - Extremities Exam Extremities exam: Present: normal inspection. Absent: calf tenderness, edema - Skin Skin exam: Present: rash (lower abdomen and upper thighs, maculopapular, blanches) Results - Labs CBC & BMP: 01/06/17 06:33 01/06/17 06:33 Lab Results: I have reviewed the past 24 hour labs
--- NOTE | 2017-01-06 16:54 | General Surgery Consult Note ---
Assessment and Plan - Time spent with patient Time spent with patient: Less than 30 minutes (1) C. difficile colitis Status: Acute Assessment and plan: This appears to be severe complicated Clostridium difficile colitis with out a true toxic megacolon. Clearly when she was admitted she had sepsis with lactic acidosis but this has resolved. She was much more tachycardic and tachypneic at admission and this is improved as well. She continues to have abdominal distention and dilated bowel with continued colitis clinically but does not have peritonitis or signs of bowel necrosis or perforation. It is unclear whether she will resolve with medical management. I agree with GI consultation to see if they have anything additional to add. Unfortunately she is a poor surgical candidate and surgery would likely entail total abdominal colectomy and ileostomy which will be a major operation and life changing for her in the long-term. All of these issues which are very difficult were discussed in detail with her. She understands there is a significant chance that she will require surgery. We will see what Dr. Munroe's opinion is regarding further medical management of her colitis. Current Visit: Yes History of Present Illness Chief complaint: Abdominal pain History of present illness: Ms. Bedoya is a 61 year old female Who was admitted several days ago with abdominal pain distention and signs of sepsis. Her CT scan at that time showed thickened colon but no pneumatosis. Her history is consistent with Clostridium difficile colitis and she was treated with antibiotics for sinusitis several weeks ago. Since that time she has had resolution of her septic picture to some degree but is continued to have a distended abdomen and diarrhea. Home Medications Medication Instructions Recorded Confirmed Type Albuterol Sulfate [Ventolin HFA] 2 puffs INH Q6H PRN 01/03/17 01/03/17 History Amlodipine Besylate 5 mg PO DAILY 01/03/17 01/03/17 History Buspirone HCl [Buspirone HCl] 15 mg PO TID 01/03/17 01/03/17 History HYDROcodone/ACETAMIN 7.5-325 1 tablet PO Q6H PRN 01/03/17 01/03/17 History [[place] 7.5-325] Mirtazapine [Mirtazapine] 15 mg PO BEDTIME 01/03/17 01/03/17 History PARoxetine HCl [Paroxetine HCl] 10 mg PO QAM 01/03/17 01/03/17 History Trazodone HCl 100 mg PO BEDTIME PRN 01/03/17 01/03/17 History Allergies Allergy/AdvReac Type Severity Reaction Status Date / Time No Known Allergies Allergy Verified 01/03/17 07:56 Medical,Surgical,& Family Hx - Medical History Cardio: History of: Hypertension Respiratory: History of: COPD Musculoskeletal: History of: Back/Neck Problems - Surgical History Cardiac Surgeries: Patient Denies: Vascular Access Devices Abdominal Surgeries: Patient denies: Abdominal Surgery - Family History Family History: Reports;: Family Heart Disease (Both mother and father of heart disease.) Denies;: Family Cancer - Social History Smoking Status: Current every day smoker Frequency of Alcohol Use: None Type of Drug Use: None - Constitutional Constitutional: Present: anorexia, weight loss. Absent: chills, fever(s) - Cardiovascular Cardiovascular: Present: dyspnea, dyspnea on exertion. Absent: chest pain at rest, chest pain with activity, syncope - Respiratory Respiratory: Present: dyspnea, dyspnea on exertion. Absent: cough, hemoptysis - Gastrointestinal Gastrointestinal: Present: abdominal pain, bloating, change in bowel habits, cramping, diarrhea, loose stools, nausea. Absent: hematemesis, hematochezia, melena, vomiting, jaundice - Genitourinary Genitourinary: Absent: hematuria - Musculoskeletal Musculoskeletal: Present: back pain - Neurological Neurological: Absent: syncope - Endocrine Endocrine: Absent: polyuria Hematologic/Lymphatic: Absent: easy bruising Exam - Constitutional Vitals: Period Temp Pulse Resp BP Sys/Mccall Pulse Ox Last 24 Hr 96.3 F-98 F 78-94 18-24 143-171/74-82 92-97 General appearance: no acute distress, cachectic - Head Head exam: Present: normocephalic - Eye Eye exam: Absent: scleral icterus - ENT Mouth exam: Present: normal voice - Neck Neck exam: Present: trachea midline - Respiratory Respiratory exam: Present: wheezes. Absent: accessory muscle use - Cardiovascular Cardiovascular exam: Present: RRR - GI/Abdominal GI/Abdominal exam: Present: normal bowel sounds, distended, tenderness, soft. Absent: guarding, mass, rebound - Extremities Exam Extremities exam: Absent: edema - Neurological Exam Neurological exam: Present: alert, oriented X3. Absent: motor sensory deficit Speech: Present: normal - Skin Skin exam: Present: normal color Results - Labs CBC & BMP: 01/06/17 06:33 01/06/17 06:33 Lab Results: I have reviewed the past 24 hour labs - Diagnostic Findings Procedure: KUB x-ray: report reviewed by me, CT Abdomen and Pelvis: image reviewed by me, report reviewed by me
[2017-01-06] MEDS: MORPHINE 2 MG/1 ML SYRINGE IV PRN (16:57)
--- NOTE | 2017-01-06 18:04 | Gastrointestinal Consult Note ---
Assessment and Plan (1) C. difficile colitis Status: Acute Assessment and plan: The patient appears to have a classic history for C. difficile including antibiotic therapy approximately 1 month ago with development of diarrhea approximately 2 weeks ago and progression since that time with CT scan showing pancolonic involvement and ascites as well as elevation white blood cell count 23,000 now improved. I am going to tweak the meds a little bit, she is appropriately getting Flagyl although this might be causing her drug rash I think we need to continue this. Agree with avoidance of other antibiotics and she does appear to be doing better. We need to stop the Colest[place] as this is thickening her bowel movements but competing with the vancomycin which may be absorbed by this nonspecific binding agent. It is too early to be treating her with probiotics she is actively getting antibiotics at this time, I usually start these after discontinuation of her antibiotic therapy. If these simple changes to her regimen improve her white count significantly over the next 1-2 days in addition to her physical exam will probably hold off on doing a limited flexible sigmoidoscopy. Flexible sigmoidoscopy might be helpful in distinguishing if there is an ischemic component to her colitis but does represent an increased risk for perforation as well. I have seen incidence in the past where washing the colonic noonan improves her susceptibility to the antibiotic/vancomycin in very severe cases in the past. Occasionally some gastroenterologists have gone so far as to drag the tube up into the cecum to infuse vancomycin directly into this region. The patient feels well enough to try clear liquid diet as tolerated. I think this is reasonable and may even improve the passage of the vancomycin into the colon Current Visit: Yes (2) Ascites Status: Acute Assessment and plan: Likely related to the patient's underlying infection however the patient sounds like she had been alcoholic from age [age], on physical exam does not appear to have a great deal of ascites, likely this will reabsorb as the infection is treated. LFTs are not significantly elevated, and the appearance of the liver on CT scan is unremarkable this admission. We will continue to observe and consider doing a ultrasound down the road to recheck the level of ascites. Current Visit: Yes (3) Drug rash Status: Acute Assessment and plan: This may be due to previous exposure to penicillins in the past and is delayed manifestation versus a reaction perhaps to Flagyl. She needs to Flagyl and so will probably observe her with this rash for the present time. If her white count drops into the 12 range, we could likely discontinue the medication and watch her on oral vancomycin alone. Current Visit: Yes (4) Leukocytosis Status: Acute Assessment and plan: A parameter of the above sepsis/C. difficile infection. This appears to be improving in time as does her lactic acid level--hopefully she will not require surgery although she is not "out of the vasques" yet. Current Visit: Yes History of Present Illness Chief complaint: severe C. difficile infection, possible toxic megacolon History of present illness: Ms. Bedoya is a 61 year old female who has a history of ingestion of antibiotics approximately 1 month ago with onset of diarrhea starting approximately 2 weeks ago with increasing abdominal distention and bloating. She was previously having fairly severe diarrhea which has improved over the hospital stay. She was admitted with an extremely tender abdomen and a white blood cell count initially of 23,[address] scan showing broderick thickening of the colon, in places this was thickened to 13 mm mostly involving the sigmoid and the cecal regions. There is been some concern over toxic megacolon. The patient's white blood cell count has improved slightly from 23,000 down to 17.4. She is currently being treated with a combination of IV Flagyl, oral vancomycin, and cholestyramine. Surgery has been consulted and Dr. Shabana STREET is following. Her sodium had been as low as 125 upon admission with dehydration but now has improved to 136, patient's BUN and creatinine were initially 61 and 1.2 indicating dehydration these have improved to 19/0.3. Interestingly she does have a great deal of ascites on her CT scan and does give a history of heavy drinking approximately 8 beers a day from the age of 9 to 38 when she discontinued this practice. She has not been a heavy drinker since that time. Her lactic acid level was noted to be 4.4 and is steadily been dropping through her hospital stay last measured on 01/04/17 was 2.2. She does have abdominal pain throughout but does not seem to be localizing any one particular area she feels bloated and states that she is only had 1-2 bowel movements per day over the last 2 days although hospital records indicate for bowel movements on 01/05/17. She is developed a low-grade rash over her lower abdomen starting about the level of her umbilicus and moving down to her legs that appears to be a drug rash. She is chronically taking [place]. This may be related to the Flagyl or previous exposure to penicillins. She is mainly complaining of chronic pain and bloating. Home Medications Medication Instructions Recorded Confirmed Type Albuterol Sulfate [Ventolin HFA] 2 puffs INH Q6H PRN 01/03/17 01/03/17 History Amlodipine Besylate 5 mg PO DAILY 01/03/17 01/03/17 History Buspirone HCl [Buspirone HCl] 15 mg PO TID 01/03/17 01/03/17 History HYDROcodone/ACETAMIN 7.5-325 1 tablet PO Q6H PRN 01/03/17 01/03/17 History [[place] 7.5-325] Mirtazapine [Mirtazapine] 15 mg PO BEDTIME 01/03/17 01/03/17 History PARoxetine HCl [Paroxetine HCl] 10 mg PO QAM 01/03/17 01/03/17 History Trazodone HCl 100 mg PO BEDTIME PRN 01/03/17 01/03/17 History Allergies Allergy/AdvReac Type Severity Reaction Status Date / Time No Known Allergies Allergy Verified 01/03/17 07:56 Medical,Surgical,& Family Hx - Medical History Cardio: History of: Hypertension Respiratory: History of: COPD Musculoskeletal: History of: Back/Neck Problems - Surgical History Cardiac Surgeries: Patient Denies: Vascular Access Devices Abdominal Surgeries: Patient denies: Abdominal Surgery - Family History Family History: Reports;: Family Heart Disease (Both mother and father of heart disease.) Denies;: Family Cancer - Social History Smoking Status: Current every day smoker Frequency of Alcohol Use: None Type of Drug Use: None Review of systems: Constitutional: Denies fever, chills, with recent nausea, but no vomiting Eyes: Denies dry eyes, and scleral icterus HENT: Denies headaches Cardiovascular: Denies acute chest pain and claudication Respiratory: Denies shortness of breath, wheezing, and difficulty breathing, denies cough Gastrointestinal: As noted in the HPI Genitourinary: Denies dysuria and hematuria Neurologic: Denies vision loss, and loss of sensation Musculoskeletal: Admits to some joint swelling, joint stiffness, and muscular weakness Psychiatric: Denies depression and rory symptoms Heme-Lymph: She does have some easy bruising, but no lymph node enlargement or tenderness, night sweats, excessive bleeding Allergies-immunologic: Denies pruritus and rhinorrhea Exam - Constitutional Vitals: Period Temp Pulse Resp BP Sys/Mccall Pulse Ox Last 24 Hr 96.3 F-98 F 69-94 18-24 143-171/74-84 91-97 General appearance: severe distress, under weight - Head Head exam: Present: normocephalic, atraumatic, other (Ill-appearing) - Eye Eye exam: Present: EOMI Pupils: Present: NESTOR - ENT ENT exam: Present: other (The patient has a single tooth in the lower arch otherwise edentulous) - Respiratory Respiratory exam: Present: clear to auscultation bilaterally. Absent: rhonchi, stridor, wheezes - Cardiovascular Cardiovascular exam: Present: regular rate and rhythm. Absent: systolic murmur - GI/Abdominal GI/Abdominal exam: Present: ascites, distended, hypoactive bowel sounds, tenderness (Diffuse tympany and tenderness throughout), soft. Absent: guarding , rebound - Extremities Exam Extremities exam: Present: normal inspection. Absent: edema - Back Exam Back exam: Present: normal inspection - Neurological Exam Neurological exam: Present: alert, oriented X3, CN II-XII intact. Absent: motor sensory deficit - Psychiatric Psychiatric exam: Present: normal affect, normal mood - Skin Skin exam: Present: warm, other (Maculopapular rash noted below the umbilicus and into the upper legs consistent with drug rash.) Results - Labs CBC & BMP: 01/06/17 06:33 01/06/17 06:33
[2017-01-06] MEDS: MIRTAZAPINE 15 MG TABLET PO SCH (21:36)
[2017-01-07] MEDS: VANCOMYCIN 50 MG/ML 60 ML/BOTTLE PO SCH ×4 (00:59→18:50)
[2017-01-07] MEDS: metroNIDAZOLE INJ 500 MG in PREMIX 1 EACH IV SCH ×3 (02:13→15:00)
[2017-01-07] MEDS: ACETAMINOPHEN 325 MG TABLET PO PRN (02:13)
[2017-01-07] MEDS: diphenhydrAMINE CAP 25 MG CAPSULE PO PRN (02:43)
[2017-01-07] MEDS: guaiFENesin/DM ER 600-30 MG TABLET PO PRN (04:54)
[2017-01-07] MEDS ORDERED: FUROSEMIDE 40 MG/4 ML VIAL IV ONE (05:34)
[2017-01-07 05:57] LABS: Basophils % 0.1 % (0.0-0.8); Eosinophils % 0.1 % (0.00-10.9); Hematocrit 37.8 VOL% (35.7-47.0); Hemoglobin 13.2 GM/DL (12.0-16.0); Immature Granulocytes % 9.1 %; Immature Granulocytes Absolute 1.57 #; Lymphocytes # 1.2 10*3/uL (1.4-4.0); Lymphocytes % 7.2 % (21.3-54.2); Mean Corpuscular HGB Conc 34.9 GM/DL (32-36); Mean Corpuscular Hemoglobin 32 PG (27-34); Mean Corpuscular Volume 92.4 FL (87-102); Mean Platelet Volume 10.2 FL (9.6-12.0); Monocytes # 1.4 10*3/uL (0.11-0.8); Monocytes % 7.8 % (1.7-12.7); NRBC # 0.21 10*3/uL; Neutrophils % 75.7 % (38.7-73.9); Platelet Count 310 T/CUMM (130-400); Red Blood Count 4.09 MC/CUMM (3.8-5.5); Red Cell Distribution Width 14.6 % (9.3-17.3); White Blood Count 17.2 T/CUMM (4-12)
[2017-01-07 06:23] LABS: Calcium 7.1 MG/DL (8.5-10.1); Potassium 3.9 MMOL/L (3.5-5.1)
[2017-01-07 06:25] LABS: Band Neutrophils 8 % (0-10); Lymphocytes 4 % (20-55); Nucleated Red Blood Cells 3 (0-5); Segmented Neutrophils 84 % (50-85); Total Cells Counted 100
[2017-01-07 06:26] LABS: Hypochromasia 1+; Ovalocytes Slight; Platelet Estimate Adequate; Target Cells Few
[2017-01-07] MEDS: SODIUM CHLORIDE 0.9% 1,000 ML IV SCH (09:00)
[2017-01-07] MEDS: DESITIN 4OZ/NYSTATIN 15 GRAM MIXTURE PASTE TOP SCH ×2 (09:20→20:37)
[2017-01-07] MEDS: HYDROmorphone 2 MG/1 ML VIAL IV PRN ×2 (10:02→14:09)
[2017-01-07] MEDS: amLODIPine 5 MG TABLET PO SCH (10:05)
[2017-01-07] MEDS: PARoxetine 10 MG TABLET PO SCH (10:05)
[2017-01-07] MEDS: busPIRone 5 MG TABLET PO SCH ×3 (10:05→20:32)
[2017-01-07] MEDS: METOPROLOL SUCCINATE XL 50 MG TABLET PO SCH (10:06)
[2017-01-07] MEDS: PANTOPRAZOLE 40 MG TABLET PO SCH (10:06)
[2017-01-07] MEDS: ENOXAPARIN 40 MG/0.4 ML SYRINGE SUBCUT SCH (10:06)
[2017-01-07] MEDS: NICOTINE 21 MG/24 HR PATCH TRANSDERM PRN (10:10)
--- NOTE | 2017-01-07 13:36 | Hospitalist Progress Note ---
Assessment and Plan - Time spent with patient Time spent with patient: Greater than 30 minutes (1) C. difficile colitis Status: Acute Assessment and plan: Continue vancomycin at 500mg po q6h. Stop metronidazole due to rash. Appreciate GI consult. Appreciate surgery consult. Current Visit: Yes (2) Ileus Status: Acute Assessment and plan: Surgery on board. Current Visit: Yes (3) Rash Status: Acute Assessment and plan: Etiology unclear, will continue to follow. Current Visit: Yes (4) Hypertension Status: Acute Assessment and plan: Continue current management. Current Visit: Yes Hospitalist: Subjective Interval history: According to nursing, patient developed rash immediately after infusion of Metronidazole. She has no complaints. Exam - Constitutional Vitals: Period Temp Pulse Resp BP Sys/Mccall Pulse Ox Last 24 Hr 97.2 F-97.7 F 67-84 18-24 165-190/78-88 91-99 General appearance: normal weight, no acute distress - Head Head exam: Present: normocephalic, atraumatic - Eye Eye exam: Present: EOMI Pupils: Present: NESTOR - ENT ENT exam: Present: normal exam - Neck Neck exam: Present: normal inspection - Respiratory Respiratory exam: Present: other (coarse BS bilaterally). Absent: rhonchi, wheezes - Cardiovascular Cardiovascular exam: Present: regular rate and rhythm. Absent: gallop, rubs, systolic murmur - GI/Abdominal GI/Abdominal exam: Present: distended, hypoactive bowel sounds, tenderness, soft , other (tympany). Absent: firm, guarding, rebound - Extremities Exam Extremities exam: Present: normal inspection. Absent: calf tenderness, edema - Skin Skin exam: Present: rash Results - Labs CBC & BMP: 01/07/17 05:25 01/07/17 05:25 Lab Results: I have reviewed the past 24 hour labs
--- NOTE | 2017-01-07 15:09 | General Surgery Progress Note ---
Assessment and Plan (1) C. difficile colitis Status: Acute Assessment and plan: This appears to be severe complicated Clostridium difficile colitis with out a true toxic megacolon. Clearly when she was admitted she had sepsis with lactic acidosis but this has resolved. She was much more tachycardic and tachypneic at admission and this is improved as well. She continues to have abdominal distention and dilated bowel with continued colitis clinically but does not have peritonitis or signs of bowel necrosis or perforation. It is unclear whether she will resolve with medical management. I agree with GI consultation to see if they have anything additional to add. Unfortunately she is a poor surgical candidate and surgery would likely entail total abdominal colectomy and ileostomy which will be a major operation and life changing for her in the long-term. All of these issues which are very difficult were discussed in detail with her. She understands there is a significant chance that she will require surgery. We will see what Dr. Munroe's opinion is regarding further medical management of her colitis. 01/07: She looks and feels much better. The tachypnea and increased work of breathing appear much better and her abdomen is still distended but much less tender. She feels much better and has much less pain. I would continue with medical treatment as you are doing. Current Visit: Yes Subjective Patient reports: Present: feels better, pain is less, nausea. Absent: vomiting , fever Exam - Constitutional Vitals: Period Temp Pulse Resp BP Sys/Mccall Pulse Ox Last 24 Hr 97.2 F-97.7 F 67-84 18-24 165-190/78-88 91-99 General appearance: no acute distress - Head Head exam: Present: normocephalic - Respiratory Respiratory exam: Absent: accessory muscle use - GI/Abdominal GI/Abdominal exam: Present: distended, soft. Absent: guarding, tenderness, rebound Results - Labs CBC & BMP: 01/07/17 05:25 01/07/17 05:25 Lab Results: I have reviewed the past 24 hour labs
--- NOTE | 2017-01-07 18:34 | Gastrointestinal Progress Note ---
Assessment and Plan (1) C. difficile colitis Status: Acute Assessment and plan: The patient appears to have a classic history for C. difficile including antibiotic therapy approximately 1 month ago with development of diarrhea approximately 2 weeks ago and progression since that time with CT scan showing pancolonic involvement and ascites as well as elevation white blood cell count 23,000 now improved. I am going to tweak the meds a little bit, she is appropriately getting Flagyl although this might be causing her drug rash I think we need to continue this. Agree with avoidance of other antibiotics and she does appear to be doing better. We need to stop the Colestid as this is thickening her bowel movements but competing with the vancomycin which may be absorbed by this nonspecific binding agent. It is too early to be treating her with probiotics she is actively getting antibiotics at this time, I usually start these after discontinuation of her antibiotic therapy. If these simple changes to her regimen improve her white count significantly over the next 1-2 days in addition to her physical exam will probably hold off on doing a limited flexible sigmoidoscopy. Flexible sigmoidoscopy might be helpful in distinguishing if there is an ischemic component to her colitis but does represent an increased risk for perforation as well. I have seen incidence in the past where washing the colonic noonan improves her susceptibility to the antibiotic/vancomycin in very severe cases in the past. Occasionally some gastroenterologists have gone so far as to drag the tube up into the cecum to infuse vancomycin directly into this region. The patient feels well enough to try clear liquid diet as tolerated. I think this is reasonable and may even improve the passage of the vancomycin into the colon 01/07/17--unfortunately the drug rash progressed to the point where the Flagyl needed to be discontinued, we will see how she does with the oral vancomycin alone. This patient continues to have a picture of fluid overload and ascites. She appears to have a ileus combined with her severe C. difficile infection. If her white blood cell count continues to improve as her lactic acid level has I suspect this will drop down to the 12-14 range tomorrow. We can continue observing her, however if this worsens and the patient is having inability to tolerate the liquid diet we may have to proceed with a limited unprepped flexible sigmoidoscopy to confirm the diagnosis and look for colonic necrosis. Note that the vancomycin was cut back as far as the dosing goes and the Colestid has been discontinued entirely, this should facilitate passage of vancomycin to the cecum/ascending region of the colon where the need is greatest. If the white count continues to rise, or her improvement stalls will plan on doing a limited flexible sigmoidoscopy to look for ischemic necrosis, confirm the diagnosis of C. difficile colitis. As mentioned on previous note, washing the noonan can improve susceptibility to the vancomycin in my experience , albeit with a slightly increased risk of perforation from air distention with the procedure. Current Visit: Yes (2) Ascites Status: Acute Assessment and plan: Likely related to the patient's underlying infection however the patient sounds like she had been alcoholic from age [age], on physical exam does not appear to have a great deal of ascites, likely this will reabsorb as the infection is treated. LFTs are not significantly elevated, and the appearance of the liver on CT scan is unremarkable this admission. We will continue to observe and consider doing a ultrasound down the road to recheck the level of ascites. 01/07/17--The patient is in samanta fluid overload at this time--I wonder if the ascites is cardiac in nature associated with congestive heart failure. Or simply third spacing? Agree with use of Lasix in the short-term. If the tap is contemplated with suggest obtaining serum albumin and ascitic albumin for a gradient check (i.e. look for evidence of portal hypertension). Current Visit: Yes (3) Drug rash Status: Acute Assessment and plan: This may be due to previous exposure to penicillins in the past and is delayed manifestation versus a reaction perhaps to Flagyl. She needs to Flagyl and so will probably observe her with this rash for the present time. If her white count drops into the 12 range, we could likely discontinue the medication and watch her on oral vancomycin alone. 01/07/17--unfortunately the drug rash worsened to the point where the Flagyl need to be discontinued yesterday. The Flagyl may or may not have been related to the volume overload picture. Agree with Lasix, observe for now. Current Visit: Yes (4) Leukocytosis Status: Acute Assessment and plan: A parameter of the above sepsis/C. difficile infection. This appears to be improving in time as does her lactic acid level--hopefully she will not require surgery although she is not "out of the vasques" yet. 01/07/17--Continue observation white blood cell count. No significant change yet Current Visit: Yes Gastroenterology - PN: Subj Interval history: Unfortunately patient's drug rash has continued and certainly worsened, was hoping would be able to get in 1 more day of Flagyl before we need to discontinue this and hopefully get her white blood cell count down closer 12 before having to discontinue this medication. She also became relatively fluid overload and this required Lasix after the development of rales. She still sounds somewhat wet. Her abdomen is distended and diffusely tender. She states that the pain is still a 9 out of 10 intensity but on pressure to the abdomen she seems much improved from even a day ago. White blood cell count has not really budged and has remained at about 17 K but improved from the 21K it had been earlier in the admission. She is tolerating small to moderate amounts of her clear liquid diet. Most meals she can eat approximately 5-10% of but once a day she will typically increase this to 75% of the clear liquids. She states she is thirsty now. The patient has had 2 more bowel movements today. Exam (Progress Note) - Constitutional Vitals: Period Temp Pulse Resp BP Sys/Mccall Pulse Ox Last 24 Hr 97.2 F-98.2 F 67-92 18-24 109-190/68-97 92-100 General appearance: mild distress - Head Head exam: Present: normocephalic, atraumatic - Eye Eye exam: Present: EOMI Pupils: Present: NESTOR - Respiratory Respiratory exam: Present: rales (To the mid lung beavers bilaterally), wheezes - Cardiovascular Cardiovascular exam: Present: gallop, regular rate and rhythm - GI/Abdominal GI/Abdominal exam: Present: distended, firm, hypoactive bowel sounds, tenderness (Diffusely), rebound (Low-grade) - Extremities Exam Extremities exam: Present: edema - Neurological Exam Neurological exam: Present: alert, oriented X3 - Psychiatric Psychiatric exam: Present: normal affect, normal mood, agitated Results - Labs CBC & BMP: 01/07/17 05:25 01/07/17 05:25
[2017-01-07] MEDS: MIRTAZAPINE 15 MG TABLET PO SCH (20:32)
[2017-01-08] MEDS: VANCOMYCIN 50 MG/ML 60 ML/BOTTLE PO SCH ×4 (00:35→18:15)
[2017-01-08] MEDS: ALBUTEROL 2.5 MG/3 ML NEB RESP TX PRN (05:30)
[2017-01-08 06:35] LABS: Calcium 7.4 MG/DL (8.5-10.1); Osmolality,Calculated 276.8 MOS/KG (273-304); Potassium 3.8 MMOL/L (3.5-5.1)
[2017-01-08 06:48] LABS: Basophils # 0.2 10*3/uL (0.0-0.2); Basophils % 0.8 % (0.0-0.8); Hemoglobin 14.1 GM/DL (12.0-16.0); Immature Granulocytes % 9.7 %; Immature Granulocytes Absolute 2.12 #; Lymphocytes # 1.3 10*3/uL (1.4-4.0); Lymphocytes % 6.1 % (21.3-54.2); Mean Corpuscular HGB Conc 35.3 GM/DL (32-36); Mean Corpuscular Hemoglobin 33 PG (27-34); Mean Corpuscular Volume 93.5 FL (87-102); Mean Platelet Volume 10.3 FL (9.6-12.0); Monocytes # 1.6 10*3/uL (0.11-0.8); Monocytes % 7.2 % (1.7-12.7); NRBC # 0.13 10*3/uL; Neutrophils # 16.6 10*3/uL (1.4-7.4); Neutrophils % 76.2 % (38.7-73.9); Platelet Count 318 T/CUMM (130-400); Red Blood Count 4.28 MC/CUMM (3.8-5.5); Red Cell Distribution Width 14.6 % (9.3-17.3); White Blood Count 21.8 T/CUMM (4-12)
[2017-01-08 07:15] LABS: Band Neutrophils 5 % (0-10); Segmented Neutrophils 83 % (50-85)
[2017-01-08 07:16] LABS: Hypochromasia 1+; Platelet Estimate Adequate; Polychromasia Slight; Total Cells Counted 100
--- NOTE | 2017-01-08 08:26 | EKG Report ---
Stationary ECG Study [facility] Test Date: 01/08/2017 8:26:02 AM Pat Name: SHAWN BHAT Department: Room: 220 Gender: F Rn Lactation Consultant: : 1955 Requested by: Maria Degroot Order Number: [id number] Reading MD: CODI ALFREDO Intervals [place] Rate: 97 P: 71 CT: 204 QRS: 70 QRSD: 90 T: 71 QT: 359 QTc: 413 Interpretive Statements SINUS RHYTHM WITH OCCASIONAL VENTRICULAR PREMATURE COMPLEXES ANTEROSEPTAL MYOCARDIAL INFARCTION, OF INDETERMINATE AGE Electronically Signed On 01-11-17 15:21:43 CDT by CODI ALFREDO [email or web address]
[2017-01-08] MEDS: hydrALAZINE 25 MG TABLET PO PRN (08:39)
[2017-01-08] MEDS: busPIRone 5 MG TABLET PO SCH ×3 (08:39→21:42)
[2017-01-08] MEDS: PARoxetine 10 MG TABLET PO SCH (08:39)
[2017-01-08] MEDS: PANTOPRAZOLE 40 MG TABLET PO SCH (08:39)
[2017-01-08] MEDS: ENOXAPARIN 40 MG/0.4 ML SYRINGE SUBCUT SCH (08:39)
[2017-01-08] MEDS: amLODIPine 5 MG TABLET PO SCH (08:39)
[2017-01-08] MEDS: DESITIN 4OZ/NYSTATIN 15 GRAM MIXTURE PASTE TOP SCH ×2 (08:40→21:42)
[2017-01-08] MEDS ORDERED: HEPARIN/NACL 0.9% 2 UNITS/ML 500 ML IV ONE (09:07)
[2017-01-08] MEDS ORDERED: LIDOCAINE 1% 20 ML VIAL ONE (09:07)
[2017-01-08] MEDS ORDERED: fentaNYL 100 MCG/2 ML VIAL ONE (09:07)
[2017-01-08] MEDS ORDERED: MIDAZOLAM 2 MG/2 ML VIAL ONE ×2 (09:07→15:07)
[2017-01-08] MEDS: ONDANSETRON 4 MG/2 ML VIAL IV PRN (10:35)
[2017-01-08] MEDS: HYDROmorphone 2 MG/1 ML VIAL IV PRN ×2 (12:12→17:13)
--- NOTE | 2017-01-08 12:17 | Hospitalist Progress Note ---
Assessment and Plan - Time spent with patient Time spent with patient: Greater than 30 minutes (1) Bradycardia Status: Acute Assessment and plan: Scheduled for temp pacemaker. Current Visit: Yes (2) C. difficile colitis Status: Acute Assessment and plan: Leukocytosis has increased. Continue vancomycin at 250mg po q6h. Appreciate GI consult. Appreciate surgery consult. Current Visit: Yes (3) Ileus Status: Acute Assessment and plan: Surgery on board. Current Visit: Yes (4) Rash Status: Acute Assessment and plan: Stopped metronidazole. Current Visit: Yes Hospitalist: Subjective Interval history: Overnight, the patient became SOB and received IV lasix. She then developed confusion and bradycardia into the 30s. Cardiology was consulted this morning and will place a temporary pacemaker. She will be transferred to the CCU post placement. Exam - Constitutional Vitals: Period Temp Pulse Resp BP Sys/Mccall Pulse Ox Last 24 Hr 96.6 F-98.2 F 73-94 18-34 109-183/68-97 93-100 General appearance: mild distress, disheveled - Head Head exam: Present: normal inspection, normocephalic, atraumatic - Eye Eye exam: Present: EOMI Pupils: Present: NESTOR - ENT ENT exam: Present: normal exam - Neck Neck exam: Present: normal inspection - Respiratory Respiratory exam: Present: other (coarse breath sounds). Absent: rhonchi, wheezes - Cardiovascular Cardiovascular exam: Present: regular rate and rhythm. Absent: gallop, rubs, systolic murmur - GI/Abdominal GI/Abdominal exam: Present: distended, hypoactive bowel sounds, soft. Absent: firm, guarding, tenderness, rebound - Extremities Exam Extremities exam: Present: normal inspection. Absent: calf tenderness, edema Results - Labs CBC & BMP: 01/08/17 04:00 01/08/17 04:00 Lab Results: I have reviewed the past 24 hour labs
--- NOTE | 2017-01-08 12:18 | Cardiology Consult Note ---
Assessment and Plan (1) C. difficile colitis Status: Acute Assessment and plan: 61-year-old female, with intermittent complete heart block, admitted with severe C. difficile infection, MRSA positive, hypertension, obesity, drug rash. -The findings are suggestive of cardiac involvement of her sepsis. This is a high-risk condition and she is at risk for critical bradycardia. We discussed risks and benefits of management options, we will proceed with a temporary pacemaker placement. -Depending on the course, she may need a permanent pacemaker, once the infection improves -She does not appear to have ischemic EKG changes. Doubt ACS. -Echo, rule out endocarditis. -Transfer to the ICU Current Visit: Yes (2) Metabolic acidosis Status: Acute Current Visit: Yes (3) Leukocytosis Status: Acute Current Visit: Yes (4) Drug rash Status: Acute Current Visit: Yes (5) Bradycardia Status: Acute Current Visit: Yes History of Present Illness - Data of Consult Patient: new to practice Consult date: 01/08/17 - Consult Narrative Reason for consult: bradycardia History of present illness: Ms. Gillette is a 61 year old female, who was admitted with severe C. difficile infection. She also tested positive for MRSA. History of hypertension, obesity. Her WBC count still elevated but was otherwise quite stable until yesterday. Today, she developed episodes of intermittent complete heart block, bradycardia. She is feeling more fatigued right now. She had no fever today. She had generalized rash, which was suspected due to be drug induced origin. Although she has pancolitic involvement of her C. difficile, she does not appear to have toxic megacolon. Telemetry strips showed sinus rhythm and sinus tachycardia, today, with episodes of intermittent high-grade AV block, escape rhythm. Most recent EKG sinus tachycardia, normal CA interval and normal QRS duration. CC: Alie Moser MD - Home Medications and Allergies Home Medications: Home Medications Medication Instructions Recorded Confirmed Type Albuterol Sulfate [Ventolin HFA] 2 puffs INH Q6H PRN 01/03/17 01/03/17 History Amlodipine Besylate 5 mg PO DAILY 01/03/17 01/03/17 History Buspirone HCl [Buspirone HCl] 15 mg PO TID 01/03/17 01/03/17 History HYDROcodone/ACETAMIN 7.5-325 1 tablet PO Q6H PRN 01/03/17 01/03/17 History [[place] 7.5-325] Mirtazapine [Mirtazapine] 15 mg PO BEDTIME 01/03/17 01/03/17 History PARoxetine HCl [Paroxetine HCl] 10 mg PO QAM 01/03/17 01/03/17 History Trazodone HCl 100 mg PO BEDTIME PRN 01/03/17 01/03/17 History Allergies/Adverse Reactions: Allergies Allergy/AdvReac Type Severity Reaction Status Date / Time No Known Allergies Allergy Verified 01/03/17 07:56 12 point system: reviewed and no additional remarkable complaints except as stated Medical,Surgical,& Family Hx - Medical History Cardio: History of: Hypertension Respiratory: History of: COPD Musculoskeletal: History of: Back/Neck Problems - Surgical History Cardiac Surgeries: Patient Denies: Vascular Access Devices Abdominal Surgeries: Patient denies: Abdominal Surgery - Family History Family History: Reports;: Family Heart Disease (Both mother and father of heart disease.) Denies;: Family Cancer - Social History Smoking Status: Current every day smoker Frequency of Alcohol Use: None Type of Drug Use: None Physical Examination Vital Signs Temp Pulse Resp BP Pulse Ox 98.1 F 126 H 20 143/102 98 01/03/17 07:53 01/03/17 07:53 01/03/17 07:53 01/03/17 07:53 01/03/17 07:53 General: Present: No Apparent Distress, Other (sleepy) HEENT: Present: Mucus Membranes Moist Neck: Present: No JVD/HJR Cardiac: Present: Systolic Murmur, Tachycardia Lungs: Present: Normal Breath Sounds Neuro: Present: Grossly Intact Abdomen: Present: Soft, Distended Skin: Present: Rash Extremities: Present: No Clubbing, No Cyanosis, +1 Edema Result/EKG - Labs CBC & BMP: 01/08/17 04:00 01/08/17 04:00 Lab Results: I have reviewed the past 24 hour labs Labs: Laboratory Results - last 24 hr 01/08/17 01/08/17 04:00 04:00 WBC 21.8 H RBC 4.28 Hgb 14.1 Hct 40.0 MCV 93.5 MCH 33 MCHC 35.3 RDW 14.6 Plt Count 318 MPV 10.3 Neut % (Auto) 76.2 H Lymph % (Auto) 6.1 L Carver % (Auto) 7.2 Eos % (Auto) 0.0 Baso % (Auto) 0.8 Neut # (Auto) 16.6 H Lymph # (Auto) 1.3 L Carver # (Auto) 1.6 H Eos # (Auto) 0.0 Baso # (Auto) 0.2 Total Counted 100 Immature Gran % 9.7 Nucleated RBC % 0.6 Immature Gran # 2.12 Segmented Neutrophils 83 Band Neutrophils 5 Monocytes 11 Nucleated RBCs # 0.13 Platelet Estimate Adequate Polychromasia Slight Hypochromasia 1+ Sodium 137 Potassium 3.8 Chloride 100 Carbon Dioxide 27 Anion Gap 13.8 BUN 20 H Creatinine 0.40 L GFR Calculation 100 BUN/Creatinine Ratio 50.00 H Glucose 124 H Calculated Osmolality 276.8 Calcium 7.4 L - EKG EKG results: interpreted by me
--- NOTE | 2017-01-08 12:18 | History and Physical Update ---
Sedation H&P Update - History and Physical H&P was reviewed, the patient examined and there: are no changes in the patients condition since last H&P was completed. - Dictation Physical: refer to H&P completed by admitting physician - Physical Exam Mental Status: alert and oriented Heart: regular rate and rhythm Lung: clear to auscultation Abdomen: within normal limits Vitals: within normal limits - Sedation Plan for Sedation: other (none) Patient Consent: Procedure disscussed with patient and patinet has consented., Risks and benefits were discussed with patient,including infection,, bleeding, injury to surrounding structures, seizure, temporary nerve, Patient understands and accepts potential risks/benefits and agrees to ASA Class: IV Airway Assessment: Class II: Soft palate, uvula, fauces visible
--- NOTE | 2017-01-08 12:21 | Electrophysiology Report ---
Date of Procedure:: 01/08/17 Pre-op diagnosis: Intermittent complete heart block, sepsis Post-op diagnosis: same Procedure: PROCEDURAL SUMMARY Temporary pacemaker implant from right axillary vein access. Successful procedure, no complications. PLAN Keep dressing in place. Monitor in the ICU. CXR stat DIAGNOSES Intermittent complete heart block C. diff sepsis MRSA PROCEDURE REPORT A timeout was performed before the procedure. The patient was continuously monitored by electrocardiography, pulse oximetry and NIBP. Sedation IV fentanyl was used due to severe chronic back pain. No Versed was used as the patient had breakfast today. The skin was anesthetized with subcu lidocaine. Access The patient was prepped and draped. The right axillary vein was accessed with a micropuncture kit, using fluoroscopy. A 6 [place] sheath was placed over guidewire. The temporary PM was advanced into the RV under fluoroscopic guidance. Measurement with the external PM confirmed adequate sensing and pacing threshold. The sheath was sutured to the skin, the temporary wire was looped around and secured the skin, then sterile dressing was placed over the insertion site. Fluoroscopy confirmed temporary PM wire position in the RV, no change in heart borders. The patient left the laboratory in good condition. Anesthesia: local Surgeon / Physician: Julius Whitley Glue Maker Bone: other (Cuca) Estimated blood loss: minimal Specimens: none sent Condition: stable Disposition: ICU/CCU
--- NOTE | 2017-01-08 13:38 | General Surgery Progress Note ---
Assessment and Plan (1) C. difficile colitis Status: Acute Assessment and plan: This appears to be severe complicated Clostridium difficile colitis with out a true toxic megacolon. Clearly when she was admitted she had sepsis with lactic acidosis but this has resolved. She was much more tachycardic and tachypneic at admission and this is improved as well. She continues to have abdominal distention and dilated bowel with continued colitis clinically but does not have peritonitis or signs of bowel necrosis or perforation. It is unclear whether she will resolve with medical management. I agree with GI consultation to see if they have anything additional to add. Unfortunately she is a poor surgical candidate and surgery would likely entail total abdominal colectomy and ileostomy which will be a major operation and life changing for her in the long-term. All of these issues which are very difficult were discussed in detail with her. She understands there is a significant chance that she will require surgery. We will see what Dr. Munroe's opinion is regarding further medical management of her colitis. 01/07: She looks and feels much better. The tachypnea and increased work of breathing appear much better and her abdomen is still distended but much less tender. She feels much better and has much less pain. I would continue with medical treatment as you are doing. 01/07: Recent events are noted. She developed heart block and has had to have a temporary pacemaker placed and is now in the ICU. She is hemodynamically stable at this point. I had a long discussion with Dr. Munroe who feels that she is probably not going to respond any further to medical management and ideally would require surgery to relieve her refractory Clostridium difficile colitis. Also I discussed her case with Dr. De Dios. Clearly she is a very poor candidate for surgery and is very very high risk. He is going to do an echo on her today. There is a concern that potentially endocarditis could have caused her heart block. I had a long discussion with the patient. She does not have any family here. She does not want surgery which is quite understandable. She understands that surgery will be life changing if she survives. I think that she is at very high risk of major morbidity and mortality with operative treatment at this point. She would require a total abdominal colectomy and ileostomy. Patient is not consenting to surgery at this point which is quite understandable. I will check back in the morning and will readdress this issue with her. Current Visit: Yes Subjective Patient reports: Present: still having pain, pain is less, shortness of breath. Absent: nausea, vomiting Exam - Constitutional Vitals: Period Temp Pulse Resp BP Sys/Mccall Pulse Ox Last 24 Hr 96.6 F-97.9 F 84-94 16-34 143-183/69-97 90-99 General appearance: no acute distress, cachectic - Eye Eye exam: Absent: scleral icterus - ENT Mouth exam: Present: normal voice - Respiratory Respiratory exam: Present: accessory muscle use - GI/Abdominal GI/Abdominal exam: Present: distended, soft. Absent: tenderness, rebound - Neurological Exam Neurological exam: Present: alert, oriented X3 Speech: Present: normal Results - Labs CBC & BMP: 01/08/17 04:00 01/08/17 04:00 Lab Results: I have reviewed the past 24 hour labs
[2017-01-08] MEDS ORDERED: ETOMIDATE 20 MG/10 ML VIAL IV ONE (13:47)
[2017-01-08] MEDS ORDERED: PROPOFOL 200 MG/20 ML VIAL IV ONE (13:47)
[2017-01-08] MEDS ORDERED: VANCOMYCIN 1,000 MG VIAL ONE (14:01)
--- NOTE | 2017-01-08 14:06 | XRay Report ---
Portable chest Date: 01/08/2017 Clinical history: Temporary pacemaker placement Comparison: 01/03/2017 Technique: Portable AP sitting chest Findings: The heart is normal in size with calcification in the aortic knob. Insertion of right subclavian temporary pacemaker with the tip in the right ventricle location. No evidence of a pneumothorax. Progressive diffuse parenchymal findings with small pleural effusions. Asymmetric parenchymal findings are noted at the right lung apex. Impression: Status post insertion of right subclavian temporary pacemaker with no evidence of pneumothorax. Progressive mild to moderate bilateral pulmonary edema with small pleural effusions. Additional asymmetric pleural and proximal findings of the right lung apex which may be related to additional pathology/mass and follow-up chest x-ray is recommended. PROCEDURE INTERPRETED AT [facility] DEPARTMENT OF RADIOLOGY Final Report Signed by: Dr. Debora White
--- NOTE | 2017-01-08 14:38 | Operative Note ---
Date of procedure: 01/08/17 Pre-op diagnosis: Refractory C. difficile colitis in the face of ileus, cecal tube required Post-op diagnosis: other (Severe C. difficile colitis with ischemic appearing areas particularly in the right colon status post placement of a cecal decompression tube for antibiotic installation into the colon with vancomycin. Multiple biopsies were taken in the ascending and cecal regions. There does not appear to be any frankly necrotic bowel seen. Observe CBC over the next 24 hours to see whether or not this is improving or worsening with this current therapy.) Procedure: PROCEDURE: Colonoscopy with cold biopsy for pathology and passage of cecal decompression tube for antibiotic enema. REFERRING PHYSICIAN: Alie Moser MD INDICATIONS: This patient has refractory C. difficile with what was thought to be a toxic megacolon, elevated white blood cell count to 21,000, passage of cecal decompression tube felt to be needed secondary to ileus preventing oral ingestion of vancomycin. The prior H&P was reviewed and interrim changes are as noted: No change from GI consultation earlier this admission ENDOSCOPIST: Giorgio Montano MD ENDOSCOPE: Olympus Video 100 System colonoscope COLON PREPARATION: Enema soapsuds 2 ASA CLASS: 4E EXAM: CV: regular rate and rhythm Respiratory: Clear without wheezes Abdominal: active bowel sounds Rectal: Good tone, no fissures or fistulas MEDICATION: Per nursing anesthesia protocol, see their notes PROCEDURE: After discussion of the potential risks and benefits of colonoscopy, the informed consent was obtained, from patient or health care surrogate. The patient was then placed in the left lateral decubitus position where sedation was achieved as noted above. Rectal examination was followed by insertion of the colonoscope. The colonoscope was passed under direct visualization to the cecum. Advancement was facilitated by insertion/withdrawl techniques, abdominal pressure and patient positioning. Once the cecal pole was reached, slow withdrawal was performed with the findings as noted below. The patient tolerated the procedure well and without complication. QUALITY OF PREP: Adequate WITHDRAWL TIME: 20 minutes 13 seconds BIOPSIES: Obtained in the ascending and descending PHOTOGRAPHS: Obtained FINDINGS: The musoca appeared appeared to have pseudomembranes and erythema throughout the entirety, this appeared slightly worse in the descending colon with thickening in this region and diverticulosis noted here without gross evidence of diverticulitis. There were multiple ischemic appearing noted with the pseudomembranes throughout the colon particularly on the right side biopsies were obtained to confirm the diagnosis. Areas position within the cecum was confirmed by ileocecal valve, appendiceal oriface, and the convergence of folds (crows foot). No polyp, mass or AVM was noted throughout the colon. Intubation of the TI was achieved x 5 cm with normal appearence, with a fair amount of retained food. At the end of the case a wire was advanced into the cecum and this was used to pass the cecal decompression tube. Somewhat up disappointingly this only made it up into the descending colon based on fluoroscopy due to redundancies and dilation within the colon. IMPRESSION: Severe C. difficile colitis with ischemic appearing areas particularly in the right colon status post placement of a cecal decompression tube for antibiotic installation into the colon with vancomycin. Multiple biopsies were taken in the ascending and cecal regions. There does not appear to be any frankly necrotic bowel seen. Observe CBC over the next 24 hours to see whether or not this is improving or worsening with this current therapy. RECOMMENDATIONS: High fiber diet We will be using the cecal decompression tube in order to instill 500 mg of vancomycin 4 times daily while continue oral vancomycin as well as her current dosage. Citrucel 1 tablespoon in 12 oz juice BID: 1 bottle: :11 Follow up by phone for biopsy results in 1-2 weeks by phone Follow white blood cell count to see if this is continuing to elevate versus improvement with today's procedure. The patient may still need to go to The patient may still need to go to total colectomy if this fails, Dr. Shabana SILVA is aware. Giorgio Montano MD COPY TO: Alie Moser MD Anesthesia: MAC Surgeon / Physician: Giorgio Montano Estimated blood loss: minimal Specimens: other Condition: stable Disposition: ICU Results - Labs CBC & BMP: 01/08/17 04:00 01/08/17 04:00 Discharge Plan - Discharge Medications No Action Buspirone HCl [Buspirone HCl] 15 mg PO TID Amlodipine Besylate 5 mg PO DAILY HYDROcodone/ACETAMIN 7.5-325 [Windber 7.5-325] 1 tablet PO Q6H PRN PRN Reason: Pain Trazodone HCl 100 mg PO BEDTIME PRN PRN Reason: Insomnia Mirtazapine [Mirtazapine] 15 mg PO BEDTIME Albuterol Sulfate [Ventolin HFA] 2 puffs INH Q6H PRN PRN Reason: Shortness Of Breath/Wheezing PARoxetine HCl [Paroxetine HCl] 10 mg PO QAM - Follow Up or Referral - Forms/Instructions
[2017-01-08] MEDS ORDERED: VANCOMYCIN 500 MG VIAL IRRIG SCH (15:00)
--- NOTE | 2017-01-08 15:05 | Anesthesia Post-Op ---
Anesthesia Post OP - Post Ansesthetic Evaluation Patient seen in post op: Yes Resp: other (increased and labored resp (no change from preop)) CV: other (external pacemaker (no change from preop)) Mental: other (no change from preop) Temp: within normal limits [id number]: within normal limits Nausea and Vomiting: within normal limits Pain: within normal limits
[2017-01-08] MEDS ORDERED: KETAMINE 500 MG/10 ML VIAL ONE (15:07)
--- NOTE | 2017-01-08 15:29 | Fluoroscopy Report ---
FL fluoroscopy <1hr Indication: Intraoperative C-arm fluoroscopy. Comparison: None. Technique: A total of 4 images were obtained intraoperatively using C-arm fluoroscopy. Findings: Images were reviewed and deemed satisfactory by the operative physician. Total fluoroscopy time was 5 minutes 35 seconds.. Impression: 1. C-arm usage as detailed. 01/08/2017 3:23 PM PROCEDURE INTERPRETED AT [facility] DEPARTMENT OF RADIOLOGY Final Report Signed by: Dr. Jake oJ
--- NOTE | 2017-01-08 16:06 | Event Note ---
No evidence of large intracardiac abscess on echo. Normal systolic function and there is no evidence of pulmonary hypertension. There is no acute coronary syndrome and she is not symptomatic from heart failure at rest. Her cardiac risk is not prohibitive, if total colectomy is planned. I am planning to keep the temporary pacemaker backup, until her sepsis , toxic colon improves, which I think are the major factors for her intermittent heart block.
--- NOTE | 2017-01-08 16:33 | Gastrointestinal Progress Note ---
Assessment and Plan (1) C. difficile colitis Status: Acute Assessment and plan: The patient appears to have a classic history for C. difficile including antibiotic therapy approximately 1 month ago with development of diarrhea approximately 2 weeks ago and progression since that time with CT scan showing pancolonic involvement and ascites as well as elevation white blood cell count 23,000 now improved. I am going to tweak the meds a little bit, she is appropriately getting Flagyl although this might be causing her drug rash I think we need to continue this. Agree with avoidance of other antibiotics and she does appear to be doing better. We need to stop the Colestid as this is thickening her bowel movements but competing with the vancomycin which may be absorbed by this nonspecific binding agent. It is too early to be treating her with probiotics she is actively getting antibiotics at this time, I usually start these after discontinuation of her antibiotic therapy. If these simple changes to her regimen improve her white count significantly over the next 1-2 days in addition to her physical exam will probably hold off on doing a limited flexible sigmoidoscopy. Flexible sigmoidoscopy might be helpful in distinguishing if there is an ischemic component to her colitis but does represent an increased risk for perforation as well. I have seen incidence in the past where washing the colonic noonan improves her susceptibility to the antibiotic/vancomycin in very severe cases in the past. Occasionally some gastroenterologists have gone so far as to drag the tube up into the cecum to infuse vancomycin directly into this region. The patient feels well enough to try clear liquid diet as tolerated. I think this is reasonable and may even improve the passage of the vancomycin into the colon 01/07/17--unfortunately the drug rash progressed to the point where the Flagyl needed to be discontinued, we will see how she does with the oral vancomycin alone. This patient continues to have a picture of fluid overload and ascites. She appears to have a ileus combined with her severe C. difficile infection. If her white blood cell count continues to improve as her lactic acid level has I suspect this will drop down to the 12-14 range tomorrow. We can continue observing her, however if this worsens and the patient is having inability to tolerate the liquid diet we may have to proceed with a limited unprepped flexible sigmoidoscopy to confirm the diagnosis and look for colonic necrosis. Note that the vancomycin was cut back as far as the dosing goes and the Colestid has been discontinued entirely, this should facilitate passage of vancomycin to the cecum/ascending region of the colon where the need is greatest. If the white count continues to rise, or her improvement stalls will plan on doing a limited flexible sigmoidoscopy to look for ischemic necrosis, confirm the diagnosis of C. difficile colitis. As mentioned on previous note, washing the noonan can improve susceptibility to the vancomycin in my experience , albeit with a slightly increased risk of perforation from air distention with the procedure. 01/08/17--patient underwent colonoscopy today with soapsuds enema prep only. This was done with the help of fluoroscopy and the "cecal" decompression tube was advanced up into the descending colon where hopefully it will be able to infuse the vancomycin irrigation into the colon to help in clearing the infection. There was a diffuse colitis with pseudomembranous plaques up-and- down the colon with some ischemic appearing areas in the ascending colon and more thickening in the descending colon. I hope that she will do well with the irrigation and her white count should improve by tomorrow if this works as planned. As her colon clears I suspect her ileus will as well and she will start to be able to take the vancomycin orally. These colonic tubes tend not to stay in place for very long. Current Visit: Yes (2) Ascites Status: Acute Assessment and plan: Likely related to the patient's underlying infection however the patient sounds like she had been alcoholic from age [age], on physical exam does not appear to have a great deal of ascites, likely this will reabsorb as the infection is treated. LFTs are not significantly elevated, and the appearance of the liver on CT scan is unremarkable this admission. We will continue to observe and consider doing a ultrasound down the road to recheck the level of ascites. 01/07/17--The patient is in samanta fluid overload at this time--I wonder if the ascites is cardiac in nature associated with congestive heart failure. Or simply third spacing? Agree with use of Lasix in the short-term. If the tap is contemplated with suggest obtaining serum albumin and ascitic albumin for a gradient check (i.e. look for evidence of portal hypertension). 01/08/17--Patient appears overall better from yesterday. Although abdomen is distended it is not as firm as it was yesterday. Current Visit: Yes (3) Drug rash Status: Acute Assessment and plan: This may be due to previous exposure to penicillins in the past and is delayed manifestation versus a reaction perhaps to Flagyl. She needs to Flagyl and so will probably observe her with this rash for the present time. If her white count drops into the 12 range, we could likely discontinue the medication and watch her on oral vancomycin alone. 01/07/17--unfortunately the drug rash worsened to the point where the Flagyl need to be discontinued yesterday. The Flagyl may or may not have been related to the volume overload picture. Agree with Angelica, observe for now. 01/08/17--The patient rash appears to be peaking hopefully this will begin to dissipate over the next 48-72 hours. Continue observation, Atarax if needed for itching. Current Visit: Yes (4) Leukocytosis Status: Acute Assessment and plan: A parameter of the above sepsis/C. difficile infection. This appears to be improving in time as does her lactic acid level--hopefully she will not require surgery although she is not "out of the vasques" yet. 01/07/17--Continue observation white blood cell count. No significant change yet. 01/08/17--This morning white blood cell count was higher than previous. Unfortunately she had also developed an intermittent complete heart, requiring a temporary pacemaker placement. Until the patient's colitis is under better control she is not anticipated to obtain a more permanent pacer. We will continue to monitor this on a daily basis hopefully if down tomorrow she will be able to avoid a colectomy. Current Visit: Yes Gastroenterology - PN: Subj Interval history: The patient is hungry but otherwise has little complaint. She states that her belly actually feels better but is still fairly tender throughout. White count has gone up this morning. We discussed the options available to the patient-- i.e., do nothing versus colonoscopy with cecal decompression tube placed for antibiotic irrigation versus total colectomy. She has discussed the latter with Dr. Shabana SILVA, who framed this is a last resort. I agree. Exam (Progress Note) - Constitutional Vitals: Period Temp Pulse Resp BP Sys/Mccall Pulse Ox Last 24 Hr 96.6 F-99 F 84-100 16-38 126-178/63-87 90-98 General appearance: mild distress - Head Head exam: Present: normocephalic - Eye Eye exam: Present: EOMI - Respiratory Respiratory exam: Present: clear to auscultation bilaterally - Cardiovascular Cardiovascular exam: Present: regular rate and rhythm - GI/Abdominal GI/Abdominal exam: Present: ascites, distended, firm, hypoactive bowel sounds, tenderness - Extremities Exam Extremities exam: Present: edema - Neurological Exam Neurological exam: Present: alert - Psychiatric Psychiatric exam: Present: normal affect, anxious - Skin Skin exam: Present: warm Results - Labs CBC & BMP: 01/08/17 04:00 01/08/17 04:00
[2017-01-08] MEDS: VANCOMYCIN RECTAL SCH ×2 (17:38→21:41)
[2017-01-08] MEDS: SODIUM CHLORIDE 0.9% RECTAL SCH ×2 (17:38→21:41)
[2017-01-08] MEDS: ZIPRASIDONE 20 MG/1 ML VIAL IM PRN (19:23)
[2017-01-08] MEDS: MIRTAZAPINE 15 MG TABLET PO SCH (21:42)
[2017-01-09] MEDS: VANCOMYCIN 50 MG/ML 60 ML/BOTTLE PO SCH ×4 (00:40→18:12)
[2017-01-09] MEDS: ZIPRASIDONE 20 MG/1 ML VIAL IM PRN (00:40)
[2017-01-09 02:52] LABS: ABG Base Excess 2.4 MMOL/L (-2.5-2.5); ABG HCO3 26.2 MMOL/L (20-26); ABG PCO2 43.1 MM HG (35-48); ABG PO2 48.7 MM HG (80-95); ABG TCO2 24.4 MMOL/L (23-27); Allen Test Positive
--- NOTE | 2017-01-09 03:08 | Event Note ---
This CODE STATUS was discussed tonight with patient. Patient was very clear that she did not want to be intubated. Therefore I am going to enter in a DNI order. Patient seems to be struggling with breathing we are going to try a BiPAP.
[2017-01-09] MEDS ORDERED: FUROSEMIDE 40 MG/4 ML VIAL IV ONE (03:10)
[2017-01-09] MEDS ORDERED: FUROSEMIDE 40 MG/4 ML VIAL ONE (03:12)
[2017-01-09] MEDS: SODIUM CHLORIDE 0.9% RECTAL SCH ×6 (05:22→22:42)
[2017-01-09] MEDS: VANCOMYCIN RECTAL SCH ×6 (05:22→22:42)
--- NOTE | 2017-01-09 06:37 | Gastrointestinal Progress Note ---
Assessment and Plan (1) C. difficile colitis Status: Acute Assessment and plan: The patient appears to have a classic history for C. difficile including antibiotic therapy approximately 1 month ago with development of diarrhea approximately 2 weeks ago and progression since that time with CT scan showing pancolonic involvement and ascites as well as elevation white blood cell count 23,000 now improved. I am going to tweak the meds a little bit, she is appropriately getting Flagyl although this might be causing her drug rash I think we need to continue this. Agree with avoidance of other antibiotics and she does appear to be doing better. We need to stop the Colestid as this is thickening her bowel movements but competing with the vancomycin which may be absorbed by this nonspecific binding agent. It is too early to be treating her with probiotics she is actively getting antibiotics at this time, I usually start these after discontinuation of her antibiotic therapy. If these simple changes to her regimen improve her white count significantly over the next 1-2 days in addition to her physical exam will probably hold off on doing a limited flexible sigmoidoscopy. Flexible sigmoidoscopy might be helpful in distinguishing if there is an ischemic component to her colitis but does represent an increased risk for perforation as well. I have seen incidence in the past where washing the colonic noonan improves her susceptibility to the antibiotic/vancomycin in very severe cases in the past. Occasionally some gastroenterologists have gone so far as to drag the tube up into the cecum to infuse vancomycin directly into this region. The patient feels well enough to try clear liquid diet as tolerated. I think this is reasonable and may even improve the passage of the vancomycin into the colon 01/07/17--unfortunately the drug rash progressed to the point where the Flagyl needed to be discontinued, we will see how she does with the oral vancomycin alone. This patient continues to have a picture of fluid overload and ascites. She appears to have a ileus combined with her severe C. difficile infection. If her white blood cell count continues to improve as her lactic acid level has I suspect this will drop down to the 12-14 range tomorrow. We can continue observing her, however if this worsens and the patient is having inability to tolerate the liquid diet we may have to proceed with a limited unprepped flexible sigmoidoscopy to confirm the diagnosis and look for colonic necrosis. Note that the vancomycin was cut back as far as the dosing goes and the Colestid has been discontinued entirely, this should facilitate passage of vancomycin to the cecum/ascending region of the colon where the need is greatest. If the white count continues to rise, or her improvement stalls will plan on doing a limited flexible sigmoidoscopy to look for ischemic necrosis, confirm the diagnosis of C. difficile colitis. As mentioned on previous note, washing the noonan can improve susceptibility to the vancomycin in my experience , albeit with a slightly increased risk of perforation from air distention with the procedure. 01/08/17--patient underwent colonoscopy today with soapsuds enema prep only. This was done with the help of fluoroscopy and the "cecal" decompression tube was advanced up into the descending colon where hopefully it will be able to infuse the vancomycin irrigation into the colon to help in clearing the infection. There was a diffuse colitis with pseudomembranous plaques up-and- down the colon with some ischemic appearing areas in the ascending colon and more thickening in the descending colon. I hope that she will do well with the irrigation and her white count should improve by tomorrow if this works as planned. As her colon clears I suspect her ileus will as well and she will start to be able to take the vancomycin orally. These colonic tubes tend not to stay in place for very long. 01/09/17--Unfortunately, after the colonoscopy yesterday and placement of the colonic tube for vancomycin irrigation the patient was able to get some vancomycin irrigated into her colon however at about 3:00 in the morning experienced respiratory distress and mental status change. She attempts to get out of her bed and was actually throwing feces at the nursing staff, attempting to get out of her bed to put on her pajamas and nearly removed her pacer wires as well as her rectal tube by report. We are unsure as to how far up the rectal tube now goes. She was given some Haldol but absolutely refused to be intubated and is currently on CPAP. Unless her white count comes down extensively and she starts to wake up and follow some commands I suspect a surgery may be headed to surgery in the near future unless she refuses that as well and is deemed competent. Current Visit: Yes (2) Ascites Status: Acute Assessment and plan: Likely related to the patient's underlying infection however the patient sounds like she had been alcoholic from age [age], on physical exam does not appear to have a great deal of ascites, likely this will reabsorb as the infection is treated. LFTs are not significantly elevated, and the appearance of the liver on CT scan is unremarkable this admission. We will continue to observe and consider doing a ultrasound down the road to recheck the level of ascites. 01/07/17--The patient is in samanta fluid overload at this time--I wonder if the ascites is cardiac in nature associated with congestive heart failure. Or simply third spacing? Agree with use of Lasix in the short-term. If the tap is contemplated with suggest obtaining serum albumin and ascitic albumin for a gradient check (i.e. look for evidence of portal hypertension). 01/08/17--Patient appears overall better from yesterday. Although abdomen is distended it is not as firm as it was yesterday. 01/09/17--Ascites appears better. Current Visit: Yes (3) Drug rash Status: Acute Assessment and plan: This may be due to previous exposure to penicillins in the past and is delayed manifestation versus a reaction perhaps to Flagyl. She needs to Flagyl and so will probably observe her with this rash for the present time. If her white count drops into the 12 range, we could likely discontinue the medication and watch her on oral vancomycin alone. 01/07/17--unfortunately the drug rash worsened to the point where the Flagyl need to be discontinued yesterday. The Flagyl may or may not have been related to the volume overload picture. Agree with Lasix, observe for now. 01/08/17--The patient rash appears to be peaking hopefully this will begin to dissipate over the next 48-72 hours. Continue observation, Atarax if needed for itching. 01/09/17--The drug rash appears to be improving. Current Visit: Yes (4) Leukocytosis Status: Acute Assessment and plan: A parameter of the above sepsis/C. difficile infection. This appears to be improving in time as does her lactic acid level--hopefully she will not require surgery although she is not "out of the vasques" yet. 01/07/17--Continue observation white blood cell count. No significant change yet. 01/08/17--This morning white blood cell count was higher than previous. Unfortunately she had also developed an intermittent complete heart, requiring a temporary pacemaker placement. Until the patient's colitis is under better control she is not anticipated to obtain a more permanent pacer. We will continue to monitor this on a daily basis hopefully if down tomorrow she will be able to avoid a colectomy. 01/09/17--the white blood cell count is not back yet. Trend will determine whether or not this patient has to go to surgery or not. She refused her vancomycin this morning. Current Visit: Yes Gastroenterology - PN: Subj Interval history: Doris had a difficult evening. She had some respiratory distress early in the morning about 3:00 and was interviewed by Dr. Mei who verified with her that she did not want to be intubated. She is currently on the CPAP and is quite sedated with Haldol. In the attempts to turn the patient in order to give her her rectal vancomycin she went into worse respiratory distress. The patient also refused her oral vancomycin as well. Laboratories have not returned from this morning so we do not know if the colonoscopic washing did any good. Her belly does seem less tight and distended today. Exam (Progress Note) - Constitutional Vitals: Period Temp Pulse Resp BP Sys/Mccall Pulse Ox Last 24 Hr 97.3 F-99 F 77-105 13-38 103-178/62-87 88-98 General appearance: no acute distress - Head Head exam: Present: normocephalic - Eye Eye exam: Present: EOMI - ENT ENT exam: Present: normal exam - Respiratory Respiratory exam: Present: decreased breath sounds (In the bases). Absent: rhonchi, stridor, wheezes - Cardiovascular Cardiovascular exam: Present: regular rate and rhythm - GI/Abdominal GI/Abdominal exam: Present: normal bowel sounds, distended, hypoactive bowel sounds, soft (Overall this appears to be much less distended and softer than yesterday). Absent: tenderness, rebound - Neurological Exam Neurological exam: Present: alert, oriented X3 - Psychiatric Psychiatric exam: Present: normal affect, normal mood - Skin Skin exam: Present: warm Results - Labs CBC & BMP: 01/08/17 04:00 01/08/17 04:00
[2017-01-09 06:40] LABS: Basophils # 0.1 10*3/uL (0.0-0.2); Basophils % 0.4 % (0.0-0.8); Eosinophils % 0.1 % (0.00-10.9); Hematocrit 34.5 VOL% (35.7-47.0); Hemoglobin 12.3 GM/DL (12.0-16.0); Immature Granulocytes % 5.3 %; Immature Granulocytes Absolute 0.84 #; Lymphocytes # 1.4 10*3/uL (1.4-4.0); Lymphocytes % 8.4 % (21.3-54.2); Mean Corpuscular HGB Conc 35.7 GM/DL (32-36); Mean Corpuscular Hemoglobin 33 PG (27-34); Mean Corpuscular Volume 93.8 FL (87-102); Mean Platelet Volume 10.4 FL (9.6-12.0); Monocytes # 1.3 10*3/uL (0.11-0.8); NRBC # 0.13 10*3/uL; Neutrophils # 12.5 10*3/uL (1.4-7.4); Neutrophils % 77.8 % (38.7-73.9); Platelet Count 208 T/CUMM (130-400); Red Blood Count 3.68 MC/CUMM (3.8-5.5); Red Cell Distribution Width 14.8 % (9.3-17.3)
--- NOTE | 2017-01-09 06:45 | XRay Report ---
Referring Physician: Toy Mei Exam: XR chest 1V portable Date: January 09, 2017 at 2:48 AM Reason: Shortness of breath Comparison: Chest one view portable January 08, 2017 Findings: A right-sided central venous line/lead is again in place with its distal tip projecting at the right ventricle. The cardiac silhouette is upper normal in size, and the patient is slightly rotated to the right. There are scattered opacities within the right mid and lower lung zones and within the left lower lung zone. This is concerning for pulmonary edema and atelectasis, but pneumonia is not excluded. There may be asymmetric pleural thickening at the right lung apex, and correlation with a chest PA lateral study is recommended when clinically feasible. No pneumothorax is identified, but there is mild to moderate right pleural fluid and minimal left pleural fluid. The osseous structures appear stable. Impression: The patient is slightly rotated to the right today. There appears to be increased opacification and pleural fluid within the right mid and lower lung zones, but this appearance may be partially related to patient rotation. PROCEDURE INTERPRETED AT [facility] DEPARTMENT OF RADIOLOGY Final Report Signed by: Dr. Dana Traore
[2017-01-09 07:09] LABS: Calcium 7.3 MG/DL (8.5-10.1); Osmolality,Calculated 276.5 MOS/KG (273-304); Potassium 3.1 MMOL/L (3.5-5.1)
[2017-01-09 07:14] LABS: Band Neutrophils 24 % (0-10); Hypochromasia 1+; Lymphocytes 3 % (20-55); Myelocytes 2 %; Nucleated Red Blood Cells 1 (0-5); Platelet Estimate Adequate; Segmented Neutrophils 66 % (50-85); Target Cells Slight; Total Cells Counted 100
[2017-01-09 07:15] LABS: Pappenheimer Bodies Few
[2017-01-09] MEDS: ACETAMINOPHEN 325 MG TABLET PO PRN (07:38)
--- NOTE | 2017-01-09 07:42 | General Surgery Progress Note ---
Assessment and Plan (1) C. difficile colitis Status: Acute Assessment and plan: This appears to be severe complicated Clostridium difficile colitis with out a true toxic megacolon. Clearly when she was admitted she had sepsis with lactic acidosis but this has resolved. She was much more tachycardic and tachypneic at admission and this is improved as well. She continues to have abdominal distention and dilated bowel with continued colitis clinically but does not have peritonitis or signs of bowel necrosis or perforation. It is unclear whether she will resolve with medical management. I agree with GI consultation to see if they have anything additional to add. Unfortunately she is a poor surgical candidate and surgery would likely entail total abdominal colectomy and ileostomy which will be a major operation and life changing for her in the long-term. All of these issues which are very difficult were discussed in detail with her. She understands there is a significant chance that she will require surgery. We will see what Dr. Munroe's opinion is regarding further medical management of her colitis. 01/07: She looks and feels much better. The tachypnea and increased work of breathing appear much better and her abdomen is still distended but much less tender. She feels much better and has much less pain. I would continue with medical treatment as you are doing. 01/08: Recent events are noted. She developed heart block and has had to have a temporary pacemaker placed and is now in the ICU. She is hemodynamically stable at this point. I had a long discussion with Dr. Munroe who feels that she is probably not going to respond any further to medical management and ideally would require surgery to relieve her refractory Clostridium difficile colitis. Also I discussed her case with Dr. De Dios. Clearly she is a very poor candidate for surgery and is very very high risk. He is going to do an echo on her today. There is a concern that potentially endocarditis could have caused her heart block. I had a long discussion with the patient. She does not have any family here. She does not want surgery which is quite understandable. She understands that surgery will be life changing if she survives. I think that she is at very high risk of major morbidity and mortality with operative treatment at this point. She would require a total abdominal colectomy and ileostomy. Patient is not consenting to surgery at this point which is quite understandable. I will check back in the morning and will readdress this issue with her. 01/09: She states that her abdomen feels better and has less pain and distention. This is after she had a rectal tube and has been getting vancomycin irrigation. She has had increased pulmonary difficulty and is on CPAP. She is alert and oriented. She has reemphasized the fact that she does not want surgery and she does not want to be intubated. I think that this is reasonable considering her overall debilitated state and comorbidities. She is a very poor candidate for surgery. Hopefully she will continue to respond to medical treatment. We do not have evidence of toxic megacolon. Current Visit: Yes Subjective Patient reports: Present: feels better, pain is less, bowel movement, shortness of breath. Absent: nausea, vomiting, fever Exam - Constitutional Vitals: Period Temp Pulse Resp BP Sys/Mccall Pulse Ox Last 24 Hr 97.3 F-99 F 77-105 13-38 103-178/62-87 88-98 General appearance: no acute distress, mild distress, cachectic - Eye Eye exam: Absent: scleral icterus - ENT Mouth exam: Present: normal voice - Respiratory Respiratory exam: Present: accessory muscle use, rhonchi - GI/Abdominal GI/Abdominal exam: Present: distended, soft. Absent: guarding, tenderness, rebound - Neurological Exam Neurological exam: Present: alert, oriented X3 Speech: Present: normal Results - Labs CBC & BMP: 01/09/17 05:52 01/09/17 05:52 Lab Results: I have reviewed the past 24 hour labs
--- NOTE | 2017-01-09 07:46 | Cardiology Progress Note ---
Assessment and Plan - Time spent with patient Time spent with patient: Greater than 30 minutes (1) History of temporary cardiac pacemaker treatment Status: Acute Assessment and plan: SEE PLAN OF CARE LISTED BELOW Current Visit: Yes (2) Rash Status: Acute Assessment and plan: SEE PLAN OF CARE LISTED BELOW Current Visit: Yes (3) C. difficile colitis Status: Acute Assessment and plan: SEE PLAN OF CARE LISTED BELOW Current Visit: Yes (4) Severe sepsis Status: Acute Assessment and plan: SEE PLAN OF CARE LISTED BELOW Current Visit: Yes (5) Hypertension Status: Chronic Assessment and plan: SEE PLAN OF CARE LISTED BELOW Current Visit: Yes (6) Drug rash Status: Acute Assessment and plan: SEE PLAN OF CARE LISTED BELOW Current Visit: Yes (7) Bradycardia Status: Resolved Assessment and plan: SEE PLAN OF CARE LISTED BELOW Current Visit: Yes Cardiology - PN: Subj Interval history: PANTOMIMIST: DR. WHITLEY SUMMARY: Ms. Gillette, 61F, admitted January 03, 2017 with severe Clostridium difficile infection, positive for MRSA. History of hypertension and obesity. Is a 61 year old female, who was admitted with severe C. difficile infection. She also tested positive for MRSA. She developed megacolon and colitis. As she was being considered for intervention, she developed intermittent complete heart block, bradycardia. This may be related to cardiac involvement of her sepsis. Dr. Whitley insert a temporary pacemaker. Echocardiogram revealed normal ejection fraction without evidence of endocarditis. Dr. Montano performed colonoscopy, cecal decompression and infusion of antibiotic for identified severe C. difficile colitis with ischemic appearing areas particularly in the right colon. Patient may additionally require surgery, such as total colectomy. Surgery is following closely. JANUARY 09, 2017: Patient's beta blockade was stopped yesterday. Her heart rate has improved and in fact is in the higher 90s range. Blood pressure is stable as well. WBCs down to 16 this morning. She is hypokalemic and will verify she is on the potassium replacement protocol. ASSESSMENT/PLAN: 1. INTERMITTENT THIRD DEGREE HEART BLOCK, BRADYCARDIA - status post temporary pacemaker. Bradycardia has resolved. Not requiring pacing at this time. Beta- blockade has been held as of yesterday. Intermittent heart block may be related to her sepsis. Hopefully, she will not require permanent pacemaker in her future once all of these comorbidities have improved 2. SEVERE ISCHEMIC COLITIS - WBCs improving. May eventually need surgery. 3. HYPERTENSION - well-controlled. 4. HYPOKALEMIA - replace per protocol 5. COPD - continue current plan of care. Exam (Progress Note) - Constitutional Vitals: Period Temp Pulse Resp BP Sys/Mccall Pulse Ox Last 24 Hr 97.3 F-99 F 77-105 13-38 103-178/62-87 88-98 Exam: General: [Ill-appearing female. Pleasant and cooperative. .] HEENT: [PERRL, normocephalic, atraumatic. Mucous membranes moist. No jaundice noted. Conjunctiva moist and clear, sclerae anicteric] Neck: No JVD/HJR, no thyromegaly or lymphadenopathy noted. No carotid bruit appreciated Cardiac: [Regular rate and rhythm.] [No obvious murmur rub or gallop.] Lungs: [Clear to auscultation without accessory muscle use to assist the respiratory pattern.] Oxygen in use via nasal cannula Abdomen: Protuberant, sluggish bowel sounds. Musculoskeletal: No fluid collection. Decreased range of motion is noted. Extremities: No clubbing, cyanosis noted. [ Upper extremity pulses 2+. Lower extremity pulses 2+. Capillary refill less than 3 seconds. Skin: Nonraised rash from legs to upper abdominal area. No skin breakdown appreciated. Neuro: Awake, alert and oriented 2. Moves all extremities well without hemiparesis or paralysis. No essential tremor is appreciated. Result/EKG - Labs CBC & BMP: 01/09/17 05:52 01/09/17 05:52 Lab Results: I have reviewed the past 24 hour labs Labs: Laboratory Results - last 24 hr 01/09/17 01/09/17 01/09/17 02:45 05:52 05:52 WBC 16.0 H RBC 3.68 L Hgb 12.3 Hct 34.5 L MCV 93.8 MCH 33 MCHC 35.7 RDW 14.8 Plt Count 208 D MPV 10.4 Neut % (Auto) 77.8 H Lymph % (Auto) 8.4 L Price % (Auto) 8.0 Eos % (Auto) 0.1 Baso % (Auto) 0.4 Neut # (Auto) 12.5 H Lymph # (Auto) 1.4 Price # (Auto) 1.3 H Eos # (Auto) 0.0 Baso # (Auto) 0.1 Total Counted 100 Immature Gran % 5.3 Nucleated RBC % 0.8 Immature Gran # 0.84 Segmented Neutrophils 66 Band Neutrophils 24 H Lymphocytes 3 L Monocytes 5 Myelocytes 2 Nucleated RBCs 1 Nucleated RBCs # 0.13 Platelet Estimate Adequate Hypochromasia 1+ Pappenheimer Bodies Few Target Cells Slight ABG pH 7.410 ABG pCO2 43.1 ABG pO2 48.7 L ABG HCO3 26.2 H ABG Total CO2 24.4 ABG O2 Saturation 82.0 L ABG Base Excess 2.4 FiO2 28.00 Sodium 139 Potassium 3.1 L Chloride 102 Carbon Dioxide 26 Anion Gap 14.1 BUN 16 Creatinine 0.40 L GFR Calculation 103 BUN/Creatinine Ratio 40.00 H Glucose 82 Calculated Osmolality 276.5 Calcium 7.3 L - EKG EKG results: interpreted by me EKG shows: sinus rhythm
[2017-01-09] MEDS: PARoxetine 10 MG TABLET PO SCH (08:37)
[2017-01-09] MEDS: amLODIPine 5 MG TABLET PO SCH (08:37)
[2017-01-09] MEDS: busPIRone 5 MG TABLET PO SCH ×3 (08:37→20:28)
[2017-01-09] MEDS: PANTOPRAZOLE 40 MG TABLET PO SCH (08:38)
[2017-01-09] MEDS: ENOXAPARIN 40 MG/0.4 ML SYRINGE SUBCUT SCH (08:38)
[2017-01-09] MEDS: HYDROmorphone 2 MG/1 ML VIAL IV PRN ×4 (08:38→22:59)
[2017-01-09] MEDS: DESITIN 4OZ/NYSTATIN 15 GRAM MIXTURE PASTE TOP SCH ×2 (08:54→20:28)
--- NOTE | 2017-01-09 12:23 | Pathology Report from [facility] ---
[facility] ACCESSION # : [id number] PATIENT NAME : Doris Bhat ORDERING DR : Giorgio Montano MD CLINICAL HX: C.Diff POST-OP DX: Random colon biosy - C.Diff SPECIMEN INFO: #1 Colon biopsy descending #2 Colon biopsy ascending GROSS DESCRIPTION: #1 Received in formalin labeled with the patients name DORIS BHAT and #1 consists of a 0.4 x 0.3 cm bee tissue fragment. Submitted in cassette #1.#2 Received in formalin labeled with the patients name DORIS BHAT and #2 consists of an aggregate of pink-bee tissue measuring 0.8 x 0.4 cm. Submitted in cassette #2. DIAGNOSIS FOR DORIS BHAT: #1 COLON BIOPSY DESCENDING: Mild chronic inflammation and edema of lamina propria; no pseudomembrane seen.#2 COLON BIOPSY ASCENDING: Ulceration with fibrinopurulent material; c/w pseudomembranous colitis. COLLECTED DATE: 01/08/2017 [facility] REPORT DATE: 01/09/2017 ELECTRONICALLY SIGNED BY: Newton Farrar M.D. 01/09/2017 - 9:52:20 [facility]
--- NOTE | 2017-01-09 15:20 | Hospitalist Progress Note ---
Hospitalist: Subjective Interval history: Patient is breathing comfortably on the BiPAP. She is refused surgery. She denies any abdominal pain. She denies any nausea or vomiting. No bowel movements. Exam - Constitutional Vitals: Period Temp Pulse Resp BP Sys/Mccall Pulse Ox Last 24 Hr 97.4 F-99 F 77-105 13-36 103-169/62-81 88-97 Exam: General : frail elderly female chronically ill appearing on BiPAP in no acute distress Cardiovascular :regular rate and rhythm normal S1-S2 no obvious murmurs rubs or gallops Lungs :clear to auscultation anteriorly diminished at the bases nonlabored breathing noted Abdomen: Soft, distended, nontender to light palpation, hypoactive bowel sounds Extremity: Warm and well-perfused no clubbing cyanosis or edema. WU hose are in place Neuro: Nonfocal Results - Labs CBC & BMP: 01/09/17 05:52 01/09/17 05:52 - Impressions (1) Bradycardia Status: Acute Assessment and plan: Temp pacemaker placed 01/08. Cardiology following. No plans for permanent pacemaker at this time until her sepsis from C. difficile has resolved. Current Visit: Yes (2) Acute sepsis due to severe C. difficile colitis Status: Acute Assessment and plan: Leukocytosis has improved. continue vancomycin at 250mg po/rectal q6h. continue clear diet. GI and surgery are following. Patient has declined surgery at this time. Serial labs. If unable to eradicate and is not a surgical candidate , patient may be a candidate for fecal transplant. Will defer to GI Current Visit: Yes (3) Ileus Status: Acute Assessment and plan: Replace electrolytes. Monitor clinically. Surgery following. Current Visit: Yes (4) Rash thought to be drug related due to Flagyl Status: Acute Assessment and plan: Continue to hold metronidazole. Current Visit: Yes (5) Hypokalemia -Replace. Check magnesium and phosphorus and replace as needed
[2017-01-09] MEDS: MIRTAZAPINE 15 MG TABLET PO SCH (20:28)
[2017-01-09] MEDS: POTASSIUM CHLORIDE 20 MEQ TABLET PO PRN ×2 (20:28→22:42)
[2017-01-09] MEDS: POTASSIUM CHLORIDE RIDER 20 MEQ in PREMIX 1 EACH IV SCH (21:50)
[2017-01-09] MEDS: traZODone 50 MG TABLET PO PRN (22:59)
[2017-01-10] MEDS: VANCOMYCIN 50 MG/ML 60 ML/BOTTLE PO SCH ×4 (00:51→18:20)
[2017-01-10 04:26] LABS: Basophils % 0.1 % (0.0-0.8); Eosinophils % 0.1 % (0.00-10.9); Hematocrit 31.9 VOL% (35.7-47.0); Immature Granulocytes % 4.1 %; Immature Granulocytes Absolute 0.57 #; Lymphocytes # 1.2 10*3/uL (1.4-4.0); Lymphocytes % 8.9 % (21.3-54.2); Mean Corpuscular HGB Conc 34.5 GM/DL (32-36); Mean Corpuscular Hemoglobin 33 PG (27-34); Mean Corpuscular Volume 95.2 FL (87-102); Mean Platelet Volume 10.5 FL (9.6-12.0); NRBC # 0.07 10*3/uL; Neutrophils # 11.1 10*3/uL (1.4-7.4); Neutrophils % 79.8 % (38.7-73.9); Platelet Count 185 T/CUMM (130-400); Red Blood Count 3.35 MC/CUMM (3.8-5.5); Red Cell Distribution Width 15.3 % (9.3-17.3); White Blood Count 13.9 T/CUMM (4-12)
[2017-01-10] MEDS: SODIUM CHLORIDE 0.9% RECTAL SCH ×4 (04:42→21:01)
[2017-01-10] MEDS: VANCOMYCIN RECTAL SCH ×4 (04:42→21:01)
[2017-01-10 04:53] LABS: Calcium 7.3 MG/DL (8.5-10.1); Osmolality,Calculated 279.4 MOS/KG (273-304); Potassium 3.4 MMOL/L (3.5-5.1)
[2017-01-10 05:17] LABS: Band Neutrophils 1 % (0-10); Hypochromasia 1+; Lymphocytes 8 % (20-55); Nucleated Red Blood Cells 1 (0-5); Segmented Neutrophils 86 % (50-85); Target Cells Slight; Total Cells Counted 100
[2017-01-10 05:18] LABS: Macrocytosis Slight; Platelet Estimate Adequate
[2017-01-10] MEDS: POTASSIUM CHLORIDE 20 MEQ TABLET PO PRN ×3 (06:02→13:00)
--- NOTE | 2017-01-10 08:32 | Cardiology Progress Note ---
Assessment and Plan (1) C. difficile colitis Status: Acute Assessment and plan: 61-year-old female, C. difficile sepsis, transient high-grade AV block, respiratory failure. -She did not have recurrence of the high-grade AV block. I removed the temporary pacemaker and the right axillary vein sheath. Keep dressing in place for 1 day. -Keep on harness repairer. I suspect her underlying critical GI disease, high vagal tone lead to transient high-grade AV block, no recurrence since her condition improved. I would defer permanent pacemaker implant at this time. -Transthoracic echo showed no evidence of large intracardiac abscess or vegetation. If she continues to improve on current therapy, we can defer endocarditis workup with CEFERINO. Current Visit: Yes (2) Metabolic acidosis Status: Acute Current Visit: Yes (3) Leukocytosis Status: Acute Current Visit: Yes (4) Drug rash Status: Acute Current Visit: Yes (5) Bradycardia Status: Resolved Current Visit: Yes Cardiology - PN: Subj Interval history: She is comfortable on BIPAP. WBC decreased. No recurrence of AVB. 1 NSVT yesterday. Exam (Progress Note) - Constitutional Vitals: Period Temp Pulse Resp BP Sys/Mccall Pulse Ox Last 24 Hr 98.1 F-99.3 F 80-101 18-30 112-150/58-75 88-97 General appearance: normal weight, no acute distress - Head Head exam: Present: normal inspection, normocephalic - Eye Eye exam: Absent: conjunctival injection Pupils: Absent: dilated - ENT ENT exam: Present: normal external ear exam - Neck Neck exam: Present: normal inspection - Respiratory Respiratory exam: Present: decreased breath sounds - Cardiovascular Cardiovascular exam: Present: regular rate and rhythm - GI/Abdominal GI/Abdominal exam: Present: distended, hypoactive bowel sounds - Extremities Exam Extremities exam: Present: normal inspection, normal capillary refill. Absent: edema - Neurological Exam Neurological exam: Present: alert - Psychiatric Psychiatric exam: Present: normal affect, normal mood - Skin Skin exam: Present: normal color, warm. Absent: cyanosis Result/EKG - Labs CBC & BMP: 01/10/17 04:02 01/10/17 04:02 Lab Results: I have reviewed the past 24 hour labs Labs: Laboratory Results - last 24 hr 01/10/17 01/10/17 01/10/17 04:02 04:02 04:02 WBC 13.9 H RBC 3.35 L Hgb 11.0 L Hct 31.9 L MCV 95.2 MCH 33 MCHC 34.5 RDW 15.3 Plt Count 185 MPV 10.5 Neut % (Auto) 79.8 H Lymph % (Auto) 8.9 L [place] % (Auto) 7.0 Eos % (Auto) 0.1 Baso % (Auto) 0.1 Neut # (Auto) 11.1 H Lymph # (Auto) 1.2 L [place] # (Auto) 1.0 H Eos # (Auto) 0.0 Baso # (Auto) 0.0 Total Counted 100 Immature Gran % 4.1 Nucleated RBC % 0.5 Immature Gran # 0.57 Segmented Neutrophils 86 H Band Neutrophils 1 Lymphocytes 8 L Monocytes 5 Nucleated RBCs 1 Nucleated RBCs # 0.07 Platelet Estimate Adequate Hypochromasia 1+ Macrocytosis Slight Target Cells Slight Sodium 140 Potassium 3.4 L Chloride 103 Carbon Dioxide 25 Anion Gap 15.4 H BUN 17 Creatinine 0.30 L GFR Calculation 113 BUN/Creatinine Ratio 56.00 H Glucose 86 Calculated Osmolality 279.4 Calcium 7.3 L Phosphorus 2.8 Magnesium 2.0 - EKG EKG results: interpreted by me
[2017-01-10] MEDS: HYDROmorphone 2 MG/1 ML VIAL IV PRN ×5 (08:36→22:33)
--- NOTE | 2017-01-10 08:44 | Hospitalist Progress Note ---
Hospitalist: Subjective Interval history: Patient had pacer wires removed this morning. She complained of abdominal pain so Dilaudid IV 1 was given with good results. No nausea or vomiting. No fever. No bowel movement. Exam - Constitutional Vitals: Period Temp Pulse Resp BP Sys/Mccall Pulse Ox Last 24 Hr 98.1 F-99.3 F 80-101 18-30 112-150/58-75 88-97 Exam: General : frail elderly female chronically ill appearing on BiPAP in no acute distress Cardiovascular :regular rate and rhythm normal S1-S2 no obvious murmurs rubs or gallops Lungs :clear to auscultation anteriorly diminished at the bases nonlabored breathing noted Abdomen: Soft, distended, nontender to light palpation, hypoactive bowel sounds Extremity: Warm and well-perfused no clubbing cyanosis or edema. WU hose are in place Neuro: Nonfocal Results - Labs CBC & BMP: 01/10/17 04:02 01/10/17 04:02 - Impressions (1) Bradycardia-resolved Status: Acute Assessment and plan: Temp pacemaker placed 01/08. Pacer wires removed on 01/10/2017. cardiology following. No plans for permanent pacemaker at this time until her sepsis from C. difficile has resolved. Current Visit: Yes (2) Acute sepsis due to severe C. difficile colitis-improving Status: Acute Assessment and plan: Leukocytosis improving. continue vancomycin at 250mg po/rectal q6h. continue clear diet. GI and surgery are following. Patient has declined surgery at this time. Serial labs. If unable to eradicate and is not a surgical candidate , patient may be a candidate for fecal transplant. Will defer to GI Current Visit: Yes (3) Ileus Status: Acute Assessment and plan: Replace electrolytes. Monitor clinically. Surgery following. Current Visit: Yes (4) Rash thought to be drug related due to Flagyl- improving Status: Acute Assessment and plan: Continue to hold metronidazole. Current Visit: Yes (5) Hypokalemia -Replace. Magnesium and phosphorus are normal DVT prophylaxis- Lovenox Discussed with patient and nurse. I will be away several days. One of my associates will follow in my absence.
[2017-01-10] MEDS: busPIRone 5 MG TABLET PO SCH ×3 (08:45→21:02)
[2017-01-10] MEDS: PARoxetine 10 MG TABLET PO SCH (08:45)
[2017-01-10] MEDS: amLODIPine 5 MG TABLET PO SCH (08:45)
[2017-01-10] MEDS: PANTOPRAZOLE 40 MG TABLET PO SCH (08:46)
[2017-01-10] MEDS: ENOXAPARIN 40 MG/0.4 ML SYRINGE SUBCUT SCH (08:46)
[2017-01-10] MEDS: DESITIN 4OZ/NYSTATIN 15 GRAM MIXTURE PASTE TOP SCH ×2 (08:54→21:01)
--- NOTE | 2017-01-10 11:34 | General Surgery Progress Note ---
Assessment and Plan (1) C. difficile colitis Status: Acute Assessment and plan: This appears to be severe complicated Clostridium difficile colitis with out a true toxic megacolon. Clearly when she was admitted she had sepsis with lactic acidosis but this has resolved. She was much more tachycardic and tachypneic at admission and this is improved as well. She continues to have abdominal distention and dilated bowel with continued colitis clinically but does not have peritonitis or signs of bowel necrosis or perforation. It is unclear whether she will resolve with medical management. I agree with GI consultation to see if they have anything additional to add. Unfortunately she is a poor surgical candidate and surgery would likely entail total abdominal colectomy and ileostomy which will be a major operation and life changing for her in the long-term. All of these issues which are very difficult were discussed in detail with her. She understands there is a significant chance that she will require surgery. We will see what Dr. Munroe's opinion is regarding further medical management of her colitis. 01/07: She looks and feels much better. The tachypnea and increased work of breathing appear much better and her abdomen is still distended but much less tender. She feels much better and has much less pain. I would continue with medical treatment as you are doing. 01/08: Recent events are noted. She developed heart block and has had to have a temporary pacemaker placed and is now in the ICU. She is hemodynamically stable at this point. I had a long discussion with Dr. Munroe who feels that she is probably not going to respond any further to medical management and ideally would require surgery to relieve her refractory Clostridium difficile colitis. Also I discussed her case with Dr. De Dios. Clearly she is a very poor candidate for surgery and is very very high risk. He is going to do an echo on her today. There is a concern that potentially endocarditis could have caused her heart block. I had a long discussion with the patient. She does not have any family here. She does not want surgery which is quite understandable. She understands that surgery will be life changing if she survives. I think that she is at very high risk of major morbidity and mortality with operative treatment at this point. She would require a total abdominal colectomy and ileostomy. Patient is not consenting to surgery at this point which is quite understandable. I will check back in the morning and will readdress this issue with her. 01/09: She states that her abdomen feels better and has less pain and distention. This is after she had a rectal tube and has been getting vancomycin irrigation. She has had increased pulmonary difficulty and is on CPAP. She is alert and oriented. She has reemphasized the fact that she does not want surgery and she does not want to be intubated. I think that this is reasonable considering her overall debilitated state and comorbidities. She is a very poor candidate for surgery. Hopefully she will continue to respond to medical treatment. We do not have evidence of toxic megacolon. 01/10:. She feels much better. Her abdomen has no pain at this point and is much less distended. She states that she has no nausea or vomiting or any abdominal pain currently. She appears to be responding to medical treatment. Current Visit: Yes Subjective Patient reports: Present: feels better, pain is less, bowel movement. Absent: nausea, vomiting, fever Exam - Constitutional Vitals: Period Temp Pulse Resp BP Sys/Mccall Pulse Ox Last 24 Hr 98.1 F-99.3 F 80-101 18-30 112-154/58-75 88-97 General appearance: no acute distress - Eye Eye exam: Absent: scleral icterus - Respiratory Respiratory exam: Absent: accessory muscle use - GI/Abdominal GI/Abdominal exam: Present: soft. Absent: distended, tenderness, rebound Results - Labs CBC & BMP: 01/10/17 04:02 01/10/17 04:02 Lab Results: I have reviewed the past 24 hour labs
--- NOTE | 2017-01-10 13:57 | Gastrointestinal Progress Note ---
Assessment and Plan (1) C. difficile colitis Status: Acute Assessment and plan: The patient appears to have a classic history for C. difficile including antibiotic therapy approximately 1 month ago with development of diarrhea approximately 2 weeks ago and progression since that time with CT scan showing pancolonic involvement and ascites as well as elevation white blood cell count 23,000 now improved. I am going to tweak the meds a little bit, she is appropriately getting Flagyl although this might be causing her drug rash I think we need to continue this. Agree with avoidance of other antibiotics and she does appear to be doing better. We need to stop the Colestid as this is thickening her bowel movements but competing with the vancomycin which may be absorbed by this nonspecific binding agent. It is too early to be treating her with probiotics she is actively getting antibiotics at this time, I usually start these after discontinuation of her antibiotic therapy. If these simple changes to her regimen improve her white count significantly over the next 1-2 days in addition to her physical exam will probably hold off on doing a limited flexible sigmoidoscopy. Flexible sigmoidoscopy might be helpful in distinguishing if there is an ischemic component to her colitis but does represent an increased risk for perforation as well. I have seen incidence in the past where washing the colonic noonan improves her susceptibility to the antibiotic/vancomycin in very severe cases in the past. Occasionally some gastroenterologists have gone so far as to drag the tube up into the cecum to infuse vancomycin directly into this region. The patient feels well enough to try clear liquid diet as tolerated. I think this is reasonable and may even improve the passage of the vancomycin into the colon 01/07/17--unfortunately the drug rash progressed to the point where the Flagyl needed to be discontinued, we will see how she does with the oral vancomycin alone. This patient continues to have a picture of fluid overload and ascites. She appears to have a ileus combined with her severe C. difficile infection. If her white blood cell count continues to improve as her lactic acid level has I suspect this will drop down to the 12-14 range tomorrow. We can continue observing her, however if this worsens and the patient is having inability to tolerate the liquid diet we may have to proceed with a limited unprepped flexible sigmoidoscopy to confirm the diagnosis and look for colonic necrosis. Note that the vancomycin was cut back as far as the dosing goes and the Colestid has been discontinued entirely, this should facilitate passage of vancomycin to the cecum/ascending region of the colon where the need is greatest. If the white count continues to rise, or her improvement stalls will plan on doing a limited flexible sigmoidoscopy to look for ischemic necrosis, confirm the diagnosis of C. difficile colitis. As mentioned on previous note, washing the noonan can improve susceptibility to the vancomycin in my experience , albeit with a slightly increased risk of perforation from air distention with the procedure. 01/08/17--patient underwent colonoscopy today with soapsuds enema prep only. This was done with the help of fluoroscopy and the "cecal" decompression tube was advanced up into the descending colon where hopefully it will be able to infuse the vancomycin irrigation into the colon to help in clearing the infection. There was a diffuse colitis with pseudomembranous plaques up-and- down the colon with some ischemic appearing areas in the ascending colon and more thickening in the descending colon. I hope that she will do well with the irrigation and her white count should improve by tomorrow if this works as planned. As her colon clears I suspect her ileus will as well and she will start to be able to take the vancomycin orally. These colonic tubes tend not to stay in place for very long. 01/09/17--Unfortunately, after the colonoscopy yesterday and placement of the colonic tube for vancomycin irrigation the patient was able to get some vancomycin irrigated into her colon however at about 3:00 in the morning experienced respiratory distress and mental status change. She attempts to get out of her bed and was actually throwing feces at the nursing staff, attempting to get out of her bed to put on her pajamas and nearly removed her pacer wires as well as her rectal tube by report. We are unsure as to how far up the rectal tube now goes. She was given some Haldol but absolutely refused to be intubated and is currently on CPAP. Unless her white count comes down extensively and she starts to wake up and follow some commands I suspect a surgery may be headed to surgery in the near future unless she refuses that as well and is deemed competent. 01/10/17--Surprisingly, the rectal tube is still in place, and the patient is doing fairly well at this point-- her white blood cell count is now down to about 14,000. She overall feels better with less distention and passage of air per rectum. She would like to have the tube taken out but I think it needs to stay in for another day. Will order a KUB tomorrow to check the abdominal distention/ileus. I think we can go ahead and start the patient's solid feedings now, if her ileus appears to be quite pronounced tomorrow we may even have to consider use of a promotility agent, although this certainly might make her diarrhea worse. Current Visit: Yes (2) Ascites Status: Acute Assessment and plan: Likely related to the patient's underlying infection however the patient sounds like she had been alcoholic from age [age], on physical exam does not appear to have a great deal of ascites, likely this will reabsorb as the infection is treated. LFTs are not significantly elevated, and the appearance of the liver on CT scan is unremarkable this admission. We will continue to observe and consider doing a ultrasound down the road to recheck the level of ascites. 01/07/17--The patient is in samanta fluid overload at this time--I wonder if the ascites is cardiac in nature associated with congestive heart failure. Or simply third spacing? Agree with use of Lasix in the short-term. If the tap is contemplated with suggest obtaining serum albumin and ascitic albumin for a gradient check (i.e. look for evidence of portal hypertension). 01/08/17--Patient appears overall better from yesterday. Although abdomen is distended it is not as firm as it was yesterday. 01/09/17--Ascites appears better. 01/09/17--Improved. I believe most of the patient's distention is likely due to trapped gas. Current Visit: Yes (3) Drug rash Status: Acute Assessment and plan: This may be due to previous exposure to penicillins in the past and is delayed manifestation versus a reaction perhaps to Flagyl. She needs to Flagyl and so will probably observe her with this rash for the present time. If her white count drops into the 12 range, we could likely discontinue the medication and watch her on oral vancomycin alone. 01/07/17--unfortunately the drug rash worsened to the point where the Flagyl need to be discontinued yesterday. The Flagyl may or may not have been related to the volume overload picture. Agree with Lasix, observe for now. 01/08/17--The patient rash appears to be peaking hopefully this will begin to dissipate over the next 48-72 hours. Continue observation, Atarax if needed for itching. 01/09/17--The drug rash appears to be improving. 01/10/17--The patient drug rash appears to be improving. Current Visit: Yes (4) Leukocytosis Status: Acute Assessment and plan: A parameter of the above sepsis/C. difficile infection. This appears to be improving in time as does her lactic acid level--hopefully she will not require surgery although she is not "out of the vasques" yet. 01/07/17--Continue observation white blood cell count. No significant change yet. 01/08/17--This morning white blood cell count was higher than previous. Unfortunately she had also developed an intermittent complete heart, requiring a temporary pacemaker placement. Until the patient's colitis is under better control she is not anticipated to obtain a more permanent pacer. We will continue to monitor this on a daily basis hopefully if down tomorrow she will be able to avoid a colectomy. 01/09/17--the white blood cell count is not back yet. Trend will determine whether or not this patient has to go to surgery or not. She refused her vancomycin this morning. 01/10/17--taking the oral vancomycin, taking the rectal vancomycin irrigant as well. I suspect that if her leukocytosis is improved to 12-13 range we can likely discontinue the vancomycin rectally entirely. Current Visit: Yes Gastroenterology - PN: Subj Interval history: The patient is having less abdominal pain today but still extremely distended. She states that she is hungry and would like to have an advancement in her diet , if possible. She is tolerating clear liquids quite well. She remains on the CPAP at this time due to respiratory difficulties. Exam (Progress Note) - Constitutional Vitals: Period Temp Pulse Resp BP Sys/Mccall Pulse Ox Last 24 Hr 98.1 F-99.3 F 79-101 16-30 112-154/58-75 89-97 General appearance: no acute distress - Head Head exam: Present: normocephalic - Eye Eye exam: Present: EOMI Pupils: Present: NESTOR - Respiratory Respiratory exam: Present: clear to auscultation bilaterally - Cardiovascular Cardiovascular exam: Present: regular rate and rhythm - GI/Abdominal GI/Abdominal exam: Present: normal bowel sounds, distended, tenderness (Mild diffuse tenderness throughout), soft, other (There is a great deal of tympany noted here) - Extremities Exam Extremities exam: Present: full ROM - Neurological Exam Neurological exam: Present: alert, oriented X3 - Psychiatric Psychiatric exam: Present: normal affect, normal mood - Skin Skin exam: Present: warm Results - Labs CBC & BMP: 01/10/17 04:02 01/10/17 04:02
[2017-01-10] MEDS: MIRTAZAPINE 15 MG TABLET PO SCH (21:02)
[2017-01-10] MEDS: traZODone 50 MG TABLET PO PRN (21:02)
[2017-01-11] MEDS: VANCOMYCIN 50 MG/ML 60 ML/BOTTLE PO SCH ×4 (00:07→17:14)
[2017-01-11] MEDS: HYDROmorphone 2 MG/1 ML VIAL IV PRN ×5 (01:48→20:11)
[2017-01-11] MEDS: SODIUM CHLORIDE 0.9% RECTAL SCH ×4 (03:13→22:46)
[2017-01-11] MEDS: VANCOMYCIN RECTAL SCH ×4 (03:13→22:46)
[2017-01-11 03:48] LABS: Basophils % 0.2 % (0.0-0.8); Eosinophils % 0.1 % (0.00-10.9); Hematocrit 32.2 VOL% (35.7-47.0); Immature Granulocytes Absolute 0.29 #; Lymphocytes % 6.9 % (21.3-54.2); Mean Corpuscular HGB Conc 34.2 GM/DL (32-36); Mean Corpuscular Hemoglobin 33 PG (27-34); Mean Corpuscular Volume 96.7 FL (87-102); Mean Platelet Volume 10.6 FL (9.6-12.0); Monocytes # 0.8 10*3/uL (0.11-0.8); Monocytes % 5.3 % (1.7-12.7); NRBC # 0.04 10*3/uL; Neutrophils # 12.7 10*3/uL (1.4-7.4); Neutrophils % 85.5 % (38.7-73.9); Platelet Count 184 T/CUMM (130-400); Red Blood Count 3.33 MC/CUMM (3.8-5.5); Red Cell Distribution Width 15.8 % (9.3-17.3); White Blood Count 14.9 T/CUMM (4-12)
[2017-01-11 04:18] LABS: Calcium 7.4 MG/DL (8.5-10.1); Magnesium 1.9 MG/DL (1.8-2.4); Osmolality,Calculated 279.4 MOS/KG (273-304); Potassium 4.1 MMOL/L (3.5-5.1)
[2017-01-11 04:37] LABS: Band Neutrophils 7 % (0-10); Lymphocytes 6 % (20-55); Metamyelocytes 1 %; Myelocytes 1 %; Platelet Estimate Normal; Segmented Neutrophils 82 % (50-85); Total Cells Counted 100
--- NOTE | 2017-01-11 07:19 | Gastrointestinal Progress Note ---
Assessment and Plan (1) C. difficile colitis Status: Acute Assessment and plan: The patient appears to have a classic history for C. difficile including antibiotic therapy approximately 1 month ago with development of diarrhea approximately 2 weeks ago and progression since that time with CT scan showing pancolonic involvement and ascites as well as elevation white blood cell count 23,000 now improved. I am going to tweak the meds a little bit, she is appropriately getting Flagyl although this might be causing her drug rash I think we need to continue this. Agree with avoidance of other antibiotics and she does appear to be doing better. We need to stop the Colestid as this is thickening her bowel movements but competing with the vancomycin which may be absorbed by this nonspecific binding agent. It is too early to be treating her with probiotics she is actively getting antibiotics at this time, I usually start these after discontinuation of her antibiotic therapy. If these simple changes to her regimen improve her white count significantly over the next 1-2 days in addition to her physical exam will probably hold off on doing a limited flexible sigmoidoscopy. Flexible sigmoidoscopy might be helpful in distinguishing if there is an ischemic component to her colitis but does represent an increased risk for perforation as well. I have seen incidence in the past where washing the colonic noonan improves her susceptibility to the antibiotic/vancomycin in very severe cases in the past. Occasionally some gastroenterologists have gone so far as to drag the tube up into the cecum to infuse vancomycin directly into this region. The patient feels well enough to try clear liquid diet as tolerated. I think this is reasonable and may even improve the passage of the vancomycin into the colon 01/07/17--unfortunately the drug rash progressed to the point where the Flagyl needed to be discontinued, we will see how she does with the oral vancomycin alone. This patient continues to have a picture of fluid overload and ascites. She appears to have a ileus combined with her severe C. difficile infection. If her white blood cell count continues to improve as her lactic acid level has I suspect this will drop down to the 12-14 range tomorrow. We can continue observing her, however if this worsens and the patient is having inability to tolerate the liquid diet we may have to proceed with a limited unprepped flexible sigmoidoscopy to confirm the diagnosis and look for colonic necrosis. Note that the vancomycin was cut back as far as the dosing goes and the Colestid has been discontinued entirely, this should facilitate passage of vancomycin to the cecum/ascending region of the colon where the need is greatest. If the white count continues to rise, or her improvement stalls will plan on doing a limited flexible sigmoidoscopy to look for ischemic necrosis, confirm the diagnosis of C. difficile colitis. As mentioned on previous note, washing the noonan can improve susceptibility to the vancomycin in my experience , albeit with a slightly increased risk of perforation from air distention with the procedure. 01/08/17--patient underwent colonoscopy today with soapsuds enema prep only. This was done with the help of fluoroscopy and the "cecal" decompression tube was advanced up into the descending colon where hopefully it will be able to infuse the vancomycin irrigation into the colon to help in clearing the infection. There was a diffuse colitis with pseudomembranous plaques up-and- down the colon with some ischemic appearing areas in the ascending colon and more thickening in the descending colon. I hope that she will do well with the irrigation and her white count should improve by tomorrow if this works as planned. As her colon clears I suspect her ileus will as well and she will start to be able to take the vancomycin orally. These colonic tubes tend not to stay in place for very long. 01/09/17--Unfortunately, after the colonoscopy yesterday and placement of the colonic tube for vancomycin irrigation the patient was able to get some vancomycin irrigated into her colon however at about 3:00 in the morning experienced respiratory distress and mental status change. She attempts to get out of her bed and was actually throwing feces at the nursing staff, attempting to get out of her bed to put on her pajamas and nearly removed her pacer wires as well as her rectal tube by report. We are unsure as to how far up the rectal tube now goes. She was given some Haldol but absolutely refused to be intubated and is currently on CPAP. Unless her white count comes down extensively and she starts to wake up and follow some commands I suspect a surgery may be headed to surgery in the near future unless she refuses that as well and is deemed competent. 01/10/17--Surprisingly, the rectal tube is still in place, and the patient is doing fairly well at this point-- her white blood cell count is now down to about 14,000. She overall feels better with less distention and passage of air per rectum. She would like to have the tube taken out but I think it needs to stay in for another day. Will order a KUB tomorrow to check the abdominal distention/ileus. I think we can go ahead and start the patient's solid feedings now, if her ileus appears to be quite pronounced tomorrow we may even have to consider use of a promotility agent, although this certainly might make her diarrhea worse. 01/11/17--The patient's rectal tube is again still in place. Rectal irrigation continues with 500 mg every 6 and her distention seems only slightly improved from yesterday with white blood cell count going up from 13.9-->14.9. The patient still seems fairly distended and I believe this is likely the ongoing ileus. I started her on a pured diet to see how she does with this but I think we need also some motility enhancement to clear her ileus to allow the oral medication to take over when the rectal tube falls out. I am going to stop her Phenergan and start a low-dose of Reglan 5 mg IV every 6 to see if we can get the distention down, possibly at the randolph of more diarrhea. Current Visit: Yes (2) Ascites Status: Acute Assessment and plan: Likely related to the patient's underlying infection however the patient sounds like she had been alcoholic from age [age], on physical exam does not appear to have a great deal of ascites, likely this will reabsorb as the infection is treated. LFTs are not significantly elevated, and the appearance of the liver on CT scan is unremarkable this admission. We will continue to observe and consider doing a ultrasound down the road to recheck the level of ascites. 01/07/17--The patient is in [place] fluid overload at this time--I wonder if the ascites is cardiac in nature associated with congestive heart failure. Or simply third spacing? Agree with use of Lasix in the short-term. If the tap is contemplated with suggest obtaining serum albumin and ascitic albumin for a gradient check (i.e. look for evidence of portal hypertension). 01/08/17--Patient appears overall better from yesterday. Although abdomen is distended it is not as firm as it was yesterday. 01/09/17--Ascites appears better. 01/09/17--Improved. I believe most of the patient's distention is likely due to trapped gas. 01/10/17--No change. Current Visit: Yes (3) Drug rash Status: Acute Assessment and plan: This may be due to previous exposure to penicillins in the past and is delayed manifestation versus a reaction perhaps to Flagyl. She needs to Flagyl and so will probably observe her with this rash for the present time. If her white count drops into the 12 range, we could likely discontinue the medication and watch her on oral vancomycin alone. 01/07/17--unfortunately the drug rash worsened to the point where the Flagyl need to be discontinued yesterday. The Flagyl may or may not have been related to the volume overload picture. Agree with Angelica, observe for now. 01/08/17--The patient rash appears to be peaking hopefully this will begin to dissipate over the next 48-72 hours. Continue observation, Atarax if needed for itching. 01/09/17--The drug rash appears to be improving. 01/10/17--The patient drug rash appears to be improving. 01/11/17--Improving Current Visit: Yes (4) Leukocytosis Status: Acute Assessment and plan: A parameter of the above sepsis/C. difficile infection. This appears to be improving in time as does her lactic acid level--hopefully she will not require surgery although she is not "out of the vasques" yet. 01/07/17--Continue observation white blood cell count. No significant change yet. 01/08/17--This morning white blood cell count was higher than previous. Unfortunately she had also developed an intermittent complete heart, requiring a temporary pacemaker placement. Until the patient's colitis is under better control she is not anticipated to obtain a more permanent pacer. We will continue to monitor this on a daily basis hopefully if down tomorrow she will be able to avoid a colectomy. 01/09/17--the white blood cell count is not back yet. Trend will determine whether or not this patient has to go to surgery or not. She refused her vancomycin this morning. 01/10/17--taking the oral vancomycin, taking the rectal vancomycin irrigant as well. I suspect that if her leukocytosis is improved to 12-13 range we can likely discontinue the vancomycin rectally entirely. 01/11/17--With the white blood cell count going back up again we will plan on leaving and the rectal irrigation tube today although I suspect this will probably fall out spontaneously in the near future. X-ray today demonstrates dilated small and large bowel. Current Visit: Yes Gastroenterology - PN: Subj Interval history: Patient had 3 bowel movements last night, rectal tube is still in place, surprisingly. This is noted to be out approximately 6 inches. Patient's white blood cell count increased from 13.9-->14.9 over the last day. Otherwise she is doing fairly well. She has some appetite and is tolerating her food she is still extremely bloated. Exam (Progress Note) - Constitutional Vitals: Period Temp Pulse Resp BP Sys/Mccall Pulse Ox Last 24 Hr 98.2 F-99.9 F 73-105 16-25 131-159/61-97 87-97 General appearance: no acute distress, cachectic - Respiratory Respiratory exam: Present: clear to auscultation bilaterally - Cardiovascular Cardiovascular exam: Present: regular rate and rhythm - GI/Abdominal GI/Abdominal exam: Present: distended, tenderness (Very mild diffuse), soft. Absent: firm, guarding, rebound - Extremities Exam Extremities exam: Present: normal inspection - Neurological Exam Neurological exam: Present: alert, oriented X3 - Psychiatric Psychiatric exam: Present: normal affect, anxious - Skin Skin exam: Present: warm Results - Labs CBC & BMP: 01/11/17 03:19 01/11/17 03:19
--- NOTE | 2017-01-11 07:53 | Cardiology Progress Note ---
Assessment and Plan (1) C. difficile colitis Status: Acute Assessment and plan: 61-year-old female, C. difficile sepsis, transient high-grade AV block, respiratory failure. 01/08: temp PM from R subcl for intermittent 3AVB 01/10: temp PM removed -No recurrence of high-grade AV block. The colon is still quite distended on x- ray, high risk for recurrence of the AV block, which I suspect was due to her sepsis, abdominal distention, vegetative imbalance. -From a cardiac perspective, she may leave the ICU, will need to stay on continuous monitor for now. -Transthoracic echo showed no evidence of large intracardiac abscess or vegetation. If she continues to improve on current therapy, we can defer endocarditis workup with CEFERINO. Current Visit: Yes (2) Metabolic acidosis Status: Acute Current Visit: Yes (3) Leukocytosis Status: Acute Current Visit: Yes (4) Drug rash Status: Acute Current Visit: Yes (5) Bradycardia Status: Resolved Current Visit: Yes Cardiology - PN: Subj Interval history: No recurrence of high-grade AV block. The abdomen is still quite distended, she is complaining of belly pain. Minimal bowel sounds. She is on BiPAP. Exam (Progress Note) - Constitutional Vitals: Period Temp Pulse Resp BP Sys/Mccall Pulse Ox Last 24 Hr 98.2 F-99.9 F 73-105 16-25 131-159/61-97 87-97 General appearance: normal weight, no acute distress - Head Head exam: Present: normal inspection, normocephalic - Eye Eye exam: Absent: conjunctival injection Pupils: Absent: dilated - ENT ENT exam: Present: normal external ear exam - Neck Neck exam: Present: normal inspection - Respiratory Respiratory exam: Present: decreased breath sounds - Cardiovascular Cardiovascular exam: Present: regular rate and rhythm - GI/Abdominal GI/Abdominal exam: Present: distended, hypoactive bowel sounds, tenderness - Extremities Exam Extremities exam: Present: normal inspection, normal capillary refill, edema (1+ ) - Neurological Exam Neurological exam: Present: alert - Psychiatric Psychiatric exam: Present: normal affect, normal mood - Skin Skin exam: Present: normal color, warm. Absent: cyanosis Result/EKG - Labs CBC & BMP: 01/11/17 03:19 01/11/17 03:19 Lab Results: I have reviewed the past 24 hour labs Labs: Laboratory Results - last 24 hr 01/10/17 01/11/17 01/11/17 16:14 03:19 03:19 WBC 14.9 H RBC 3.33 L Hgb 11.0 L Hct 32.2 L MCV 96.7 MCH 33 MCHC 34.2 RDW 15.8 Plt Count 184 MPV 10.6 Neut % (Auto) 85.5 H Lymph % (Auto) 6.9 L Dukes % (Auto) 5.3 Eos % (Auto) 0.1 Baso % (Auto) 0.2 Neut # (Auto) 12.7 H Lymph # (Auto) 1.0 L Dukes # (Auto) 0.8 Eos # (Auto) 0.0 Baso # (Auto) 0.0 Total Counted 100 Immature Gran % 2.0 Nucleated RBC % 0.3 Immature Gran # 0.29 Segmented Neutrophils 82 Band Neutrophils 7 Lymphocytes 6 L Monocytes 3 Metamyelocytes 1 Myelocytes 1 Nucleated RBCs # 0.04 Platelet Estimate Normal Pappenheimer Bodies [employer] Sodium 140 Potassium 4.0 4.1 Chloride 104 Carbon Dioxide 27 Anion Gap 13.1 BUN 14 Creatinine 0.30 L GFR Calculation 114 BUN/Creatinine Ratio 46.00 H Glucose 94 Calculated Osmolality 279.4 Calcium 7.4 L Magnesium 1.9 - EKG EKG results: interpreted by me
--- NOTE | 2017-01-11 08:14 | XRay Report ---
History: Ileus. Colonic tube Date: 01/11/2017 Study: Flat and erect abdomen Comparison exam: Abdominal x-ray January 06, 2017 There is no evidence of pneumoperitoneum. There is moderate gaseous distention of large and small bowel compatible with ileus, slightly improved compared to the previous study. A colonic tube is coiled over the region of the rectum and distal sigmoid colon, looped over the central pelvis. There is mild to moderate right-sided pleural effusion. Osseous structures are unchanged. Impression: Continued ileus with minimal improvement. Colonic tube is coiled over the rectum and distal sigmoid level PROCEDURE INTERPRETED AT [facility] DEPARTMENT OF RADIOLOGY Final Report Signed by: Dr. Hailey Morley
[2017-01-11] MEDS: PANTOPRAZOLE 40 MG TABLET PO SCH (08:52)
[2017-01-11] MEDS: amLODIPine 5 MG TABLET PO SCH (08:52)
[2017-01-11] MEDS: ENOXAPARIN 40 MG/0.4 ML SYRINGE SUBCUT SCH (08:52)
[2017-01-11] MEDS: PARoxetine 10 MG TABLET PO SCH (08:52)
[2017-01-11] MEDS: DESITIN 4OZ/NYSTATIN 15 GRAM MIXTURE PASTE TOP SCH ×2 (08:56→20:06)
[2017-01-11] MEDS: busPIRone 5 MG TABLET PO SCH ×3 (08:56→20:06)
[2017-01-11] MEDS: METOCLOPRAMIDE 10 MG/2 ML VIAL IV SCH ×2 (12:03→17:12)
[2017-01-11] MEDS: ZIPRASIDONE 20 MG/1 ML VIAL IM PRN (16:23)
--- NOTE | 2017-01-11 16:24 | Hospitalist Progress Note ---
Assessment and Plan (1) C. difficile colitis Status: Acute Current Visit: Yes (2) Ileus Status: Acute Current Visit: Yes (3) Leukocytosis Status: Acute Current Visit: Yes (4) Severe sepsis Status: Resolved Current Visit: Yes (5) Hypertension Status: Chronic Assessment and plan: -Gastroenterology has been consulted, will continue follow recommendation -Patient currently receiving oral vancomycin, Flagyl was stopped due to an improving rash -White blood cell count continues to increase -Pulse rate is normalized, pacer wires removed, cardiology consult -Ileus remains calm surgery following, will follow recommendation -Continue oxygen per nasal cannula, continue nebulized breathing treatments as needed, O2 sat currently between 88 and 92% Current Visit: Yes Hospitalist: Subjective Interval history: The patient is a 61-year-old female admitted to the hospital with sepsis secondary to severe C. difficile colitis. Patient also has chronic COPD. She has developed an ileus during the hospitalization and currently has a rectal tube today she reports that her pain is improved, but she continues to complain of cough and intermittent wheezing. She denies any chest pain or shortness of breath at the time of my examination. Exam - Constitutional Vitals: Period Temp Pulse Resp BP Sys/Mccall Pulse Ox Last 24 Hr 98.2 F-99.9 F 88-105 14-28 135-165/63-97 85-92 General appearance: other (Keven chronically ill-appearing female awake and alert) - Head Head exam: Present: normal inspection - Eye Eye exam: Present: EOMI - Neck Neck exam: Present: normal inspection - Respiratory Respiratory exam: Present: decreased breath sounds (Decreased breath sounds lower lobes bilaterally), rhonchi (Rhonchi bilateral low), wheezes - Cardiovascular Cardiovascular exam: Present: regular rate and rhythm - GI/Abdominal GI/Abdominal exam: Present: hyperactive bowel sounds, soft. Absent: ascites, distended, guarding, tenderness, rebound - Extremities Exam Extremities exam: Present: full ROM - Neurological Exam Neurological exam: Present: alert, oriented X3 - Psychiatric Psychiatric exam: Present: normal affect Results - Labs CBC & BMP: 01/11/17 03:19 01/11/17 03:19 Lab Results: I have reviewed the past 24 hour labs
[2017-01-11] MEDS: MIRTAZAPINE 15 MG TABLET PO SCH (20:05)
[2017-01-11] MEDS: traZODone 50 MG TABLET PO PRN (20:06)
[2017-01-11] MEDS ORDERED: ALBUTEROL/IPRATROPIUM 3 ML NEB RESP TX PRN (21:44)
[2017-01-11] MEDS: ALBUTEROL 2.5 MG/3 ML NEB RESP TX PRN (22:09)
[2017-01-12] MEDS: METOCLOPRAMIDE 10 MG/2 ML VIAL IV SCH ×2 (00:28→06:12)
[2017-01-12] MEDS: VANCOMYCIN 50 MG/ML 60 ML/BOTTLE PO SCH ×4 (00:29→17:24)
[2017-01-12] MEDS: HYDROmorphone 2 MG/1 ML VIAL IV PRN ×5 (01:50→21:01)
[2017-01-12] MEDS: SODIUM CHLORIDE 0.9% RECTAL SCH ×2 (04:36→09:21)
[2017-01-12] MEDS: VANCOMYCIN RECTAL SCH ×2 (04:36→09:21)
--- NOTE | 2017-01-12 04:53 | General Surgery Progress Note ---
Assessment and Plan (1) C. difficile colitis Status: Acute Assessment and plan: This appears to be severe complicated Clostridium difficile colitis with out a true toxic megacolon. Clearly when she was admitted she had sepsis with lactic acidosis but this has resolved. She was much more tachycardic and tachypneic at admission and this is improved as well. She continues to have abdominal distention and dilated bowel with continued colitis clinically but does not have peritonitis or signs of bowel necrosis or perforation. It is unclear whether she will resolve with medical management. I agree with GI consultation to see if they have anything additional to add. Unfortunately she is a poor surgical candidate and surgery would likely entail total abdominal colectomy and ileostomy which will be a major operation and life changing for her in the long-term. All of these issues which are very difficult were discussed in detail with her. She understands there is a significant chance that she will require surgery. We will see what Dr. Munroe's opinion is regarding further medical management of her colitis. 01/07: She looks and feels much better. The tachypnea and increased work of breathing appear much better and her abdomen is still distended but much less tender. She feels much better and has much less pain. I would continue with medical treatment as you are doing. 01/08: Recent events are noted. She developed heart block and has had to have a temporary pacemaker placed and is now in the ICU. She is hemodynamically stable at this point. I had a long discussion with Dr. Munroe who feels that she is probably not going to respond any further to medical management and ideally would require surgery to relieve her refractory Clostridium difficile colitis. Also I discussed her case with Dr. De Dios. Clearly she is a very poor candidate for surgery and is very very high risk. He is going to do an echo on her today. There is a concern that potentially endocarditis could have caused her heart block. I had a long discussion with the patient. She does not have any family here. She does not want surgery which is quite understandable. She understands that surgery will be life changing if she survives. I think that she is at very high risk of major morbidity and mortality with operative treatment at this point. She would require a total abdominal colectomy and ileostomy. Patient is not consenting to surgery at this point which is quite understandable. I will check back in the morning and will readdress this issue with her. 01/09: She states that her abdomen feels better and has less pain and distention. This is after she had a rectal tube and has been getting vancomycin irrigation. She has had increased pulmonary difficulty and is on CPAP. She is alert and oriented. She has reemphasized the fact that she does not want surgery and she does not want to be intubated. I think that this is reasonable considering her overall debilitated state and comorbidities. She is a very poor candidate for surgery. Hopefully she will continue to respond to medical treatment. We do not have evidence of toxic megacolon. 01/10:. She feels much better. Her abdomen has no pain at this point and is much less distended. She states that she has no nausea or vomiting or any abdominal pain currently. She appears to be responding to medical treatment. 01/12: I saw the patient yesterday but apparently did not get a note putting the computer. She was feeling much better yesterday and feels better again today. She states that she is having much less diarrhea and having no abdominal pain currently. She is tolerating a diet. Her abdomen is nontender. I do not think that she will need surgical intervention. I will sign off of the case for now but will be happy to see her back if needed. Current Visit: Yes Subjective Patient reports: Present: feels better. Absent: still having pain, nausea, vomiting, shortness of breath Exam - Constitutional Vitals: Period Temp Pulse Resp BP Sys/Mccall Pulse Ox Last 24 Hr 97.8 F-99.0 F 87-105 14-29 129-167/63-81 81-91 General appearance: no acute distress - Head Head exam: Present: normocephalic - Respiratory Respiratory exam: Absent: accessory muscle use - GI/Abdominal GI/Abdominal exam: Present: soft. Absent: distended, tenderness Results - Labs CBC & BMP: 01/11/17 03:19 01/11/17 03:19 Lab Results: I have reviewed the past 24 hour labs
[2017-01-12 05:00] LABS: Basophils % 0.3 % (0.0-0.8); Eosinophils % 0.2 % (0.00-10.9); Hematocrit 30.6 VOL% (35.7-47.0); Hemoglobin 10.4 GM/DL (12.0-16.0); Immature Granulocytes Absolute 0.12 #; Lymphocytes # 1.3 10*3/uL (1.4-4.0); Lymphocytes % 10.9 % (21.3-54.2); Mean Corpuscular Hemoglobin 33 PG (27-34); Mean Corpuscular Volume 96.2 FL (87-102); Mean Platelet Volume 10.7 FL (9.6-12.0); Monocytes # 0.9 10*3/uL (0.11-0.8); Monocytes % 7.5 % (1.7-12.7); NRBC # 0.02 10*3/uL; Neutrophils # 9.3 10*3/uL (1.4-7.4); Neutrophils % 80.1 % (38.7-73.9); Platelet Count 195 T/CUMM (130-400); Red Blood Count 3.18 MC/CUMM (3.8-5.5); Red Cell Distribution Width 15.8 % (9.3-17.3); White Blood Count 11.6 T/CUMM (4-12)
[2017-01-12 05:17] LABS: Calcium 7.1 MG/DL (8.5-10.1); Magnesium 1.7 MG/DL (1.8-2.4); Osmolality,Calculated 276.5 MOS/KG (273-304); Potassium 3.6 MMOL/L (3.5-5.1)
[2017-01-12] MEDS: POTASSIUM CHLORIDE 20 MEQ TABLET PO PRN ×3 (06:13→15:00)
--- NOTE | 2017-01-12 07:51 | Cardiology Progress Note ---
Assessment and Plan - Time spent with patient Time spent with patient: Greater than 30 minutes (Examination, chart review and documentation) (1) Bradycardia Status: Resolved Assessment and plan: This has resolved. It was likely due to her metabolic embarrassment and abdominal distention. I have nothing further to add at this time and will sign off. If she would develop recurrent bradycardia or AV block please call we will assist. Nothing to add at this time. Current Visit: Yes (2) History of temporary cardiac pacemaker treatment Status: Acute Current Visit: Yes Cardiology - PN: Subj Interval history: 61-year-old female who developed high degree AV block that was appeared to be transient. She has C. difficile colitis. Because of her high-grade block there was some concern of endocarditis with possible complications. I think given the fact that her AV block is resolved and there is no evidence of abnormality on transthoracic echo no further workup at this time we may be need need to be revisited. She currently has sinus tachycardia and does not have AV block. The patient is somnolent and on BiPAP. Her sats remained very marginal below. Her abdomen is very distended. She has not had any more bradycardia or high degree AV block's on her available telemetry to review. The patient did require transient temporary venous pacemaker. This has been out now for several days. Exam (Progress Note) - Constitutional Vitals: Period Temp Pulse Resp BP Sys/Mccall Pulse Ox Last 24 Hr 97.8 F-99.0 F 87-108 14-29 129-167/61-81 81-91 General appearance: normal weight - Respiratory Respiratory exam: Present: clear to auscultation bilaterally (Shallow respirations on BiPAP) - Cardiovascular Cardiovascular exam: Present: tachycardia (Chest sinus tachycardia rates about 110) - GI/Abdominal GI/Abdominal exam: Present: other (Abdomen is distended and talked with marked diminished bowel sounds it is tender to minimal palpation.) - Extremities Exam Extremities exam: Present: normal inspection - Neurological Exam Neurological exam: Present: other (She is somnolent) - Skin Skin exam: Present: normal color, warm, dry Result/EKG - Labs CBC & BMP: 01/12/17 03:57 01/12/17 03:57 Labs: Laboratory Results - last 24 hr 01/11/17 01/12/17 01/12/17 12:04 03:57 03:57 WBC 11.6 RBC 3.18 L Hgb 10.4 L Hct 30.6 L MCV 96.2 MCH 33 MCHC 34.0 RDW 15.8 Plt Count 195 MPV 10.7 Neut % (Auto) 80.1 H Lymph % (Auto) 10.9 L Letcher % (Auto) 7.5 Eos % (Auto) 0.2 Baso % (Auto) 0.3 Neut # (Auto) 9.3 H Lymph # (Auto) 1.3 L Letcher # (Auto) 0.9 H Eos # (Auto) 0.0 Baso # (Auto) 0.0 Immature Gran % 1.0 Nucleated RBC % 0.2 Immature Gran # 0.12 Nucleated RBCs # 0.02 Sodium 139 Potassium 3.6 Chloride 100 Carbon Dioxide 31 Anion Gap 11.6 BUN 12 Creatinine 0.30 L GFR Calculation 114 BUN/Creatinine Ratio 40.00 H Glucose 102 POC Glucose 98 Calculated Osmolality 276.5 Calcium 7.1 L Magnesium 1.7 L - Impressions Impressions: Telemetry shows sinus tachycardia with no AV block. There is no ECG this morning.
[2017-01-12] MEDS: DESITIN 4OZ/NYSTATIN 15 GRAM MIXTURE PASTE TOP SCH ×3 (08:19→21:07)
[2017-01-12] MEDS: PANTOPRAZOLE 40 MG TABLET PO SCH (09:18)
[2017-01-12] MEDS: busPIRone 5 MG TABLET PO SCH ×3 (09:18→20:53)
[2017-01-12] MEDS: PARoxetine 10 MG TABLET PO SCH (09:19)
[2017-01-12] MEDS: ENOXAPARIN 40 MG/0.4 ML SYRINGE SUBCUT SCH (09:19)
[2017-01-12] MEDS: amLODIPine 5 MG TABLET PO SCH (09:19)
--- NOTE | 2017-01-12 09:39 | Hospitalist Progress Note ---
Assessment and Plan (1) C. difficile colitis Status: Acute Assessment and plan: 1)Cdiff colitis- on oral vanc and rectal vanc. rectal tube out when OK with GI. She continued to have diarrhea but no mucous, no water. no tenderness on exam. Dr Donald has signed off as she has improved past the point of needing surgery. Dr Montano following. WBC down. 2)severe sepsis- resolved 3)ileus- tolerating a diet, on reglan day 2. 4)COPD- on BIPAP, O2, and nebs. no steroids but she is not wheezing. 5)ascites- per Dr Montano she has a history of alcoholism but has not been diagnosed with cirrhosis. The ascites is likely from her severe cdiff infection and will resorb as infection clears. 6)drug rash- likely flagyl. Current Visit: Yes (2) Leukocytosis Status: Acute Current Visit: Yes (3) Ileus Status: Acute Current Visit: Yes (4) Drug rash Status: Acute Current Visit: Yes (5) Bradycardia Status: Resolved Current Visit: Yes (6) History of temporary cardiac pacemaker treatment Status: Acute Current Visit: Yes Hospitalist: Subjective Interval history: Ms Gillette is feeling ok this morning. She was not hungry at breakfast, but has been tolerating a pureed diet. She denies pain. No shortness of breath. Sats remain in the high 80s on BIPAP. Exam - Constitutional Vitals: Period Temp Pulse Resp BP Sys/Mccall Pulse Ox Last 24 Hr 97.8 F-99.0 F 87-108 14-29 129-167/61-80 81-91 General appearance: normal weight, mild distress (BIPAP in place) - Eye Eye exam: Present: EOMI. Absent: scleral icterus - Respiratory Respiratory exam: Present: clear to auscultation bilaterally. Absent: wheezes - Cardiovascular Cardiovascular exam: Present: regular rate and rhythm - GI/Abdominal GI/Abdominal exam: Present: distended, hypoactive bowel sounds, soft. Absent: tenderness - Extremities Exam Extremities exam: Absent: edema - Neurological Exam Neurological exam: Present: alert, oriented X3 - Skin Skin exam: Present: warm, dry Results - Labs CBC & BMP: 01/12/17 03:57 01/12/17 03:57 Lab Results: I have reviewed the past 24 hour labs
--- NOTE | 2017-01-12 11:03 | Gastrointestinal Progress Note ---
Assessment and Plan (1) C. difficile colitis Status: Acute Assessment and plan: The patient appears to have a classic history for C. difficile including antibiotic therapy approximately 1 month ago with development of diarrhea approximately 2 weeks ago and progression since that time with CT scan showing pancolonic involvement and ascites as well as elevation white blood cell count 23,000 now improved. I am going to tweak the meds a little bit, she is appropriately getting Flagyl although this might be causing her drug rash I think we need to continue this. Agree with avoidance of other antibiotics and she does appear to be doing better. We need to stop the Colestid as this is thickening her bowel movements but competing with the vancomycin which may be absorbed by this nonspecific binding agent. It is too early to be treating her with probiotics she is actively getting antibiotics at this time, I usually start these after discontinuation of her antibiotic therapy. If these simple changes to her regimen improve her white count significantly over the next 1-2 days in addition to her physical exam will probably hold off on doing a limited flexible sigmoidoscopy. Flexible sigmoidoscopy might be helpful in distinguishing if there is an ischemic component to her colitis but does represent an increased risk for perforation as well. I have seen incidence in the past where washing the colonic noonan improves her susceptibility to the antibiotic/vancomycin in very severe cases in the past. Occasionally some gastroenterologists have gone so far as to drag the tube up into the cecum to infuse vancomycin directly into this region. The patient feels well enough to try clear liquid diet as tolerated. I think this is reasonable and may even improve the passage of the vancomycin into the colon 01/07/17--unfortunately the drug rash progressed to the point where the Flagyl needed to be discontinued, we will see how she does with the oral vancomycin alone. This patient continues to have a picture of fluid overload and ascites. She appears to have a ileus combined with her severe C. difficile infection. If her white blood cell count continues to improve as her lactic acid level has I suspect this will drop down to the 12-14 range tomorrow. We can continue observing her, however if this worsens and the patient is having inability to tolerate the liquid diet we may have to proceed with a limited unprepped flexible sigmoidoscopy to confirm the diagnosis and look for colonic necrosis. Note that the vancomycin was cut back as far as the dosing goes and the Colestid has been discontinued entirely, this should facilitate passage of vancomycin to the cecum/ascending region of the colon where the need is greatest. If the white count continues to rise, or her improvement stalls will plan on doing a limited flexible sigmoidoscopy to look for ischemic necrosis, confirm the diagnosis of C. difficile colitis. As mentioned on previous note, washing the noonan can improve susceptibility to the vancomycin in my experience , albeit with a slightly increased risk of perforation from air distention with the procedure. 01/08/17--patient underwent colonoscopy today with soapsuds enema prep only. This was done with the help of fluoroscopy and the "cecal" decompression tube was advanced up into the descending colon where hopefully it will be able to infuse the vancomycin irrigation into the colon to help in clearing the infection. There was a diffuse colitis with pseudomembranous plaques up-and- down the colon with some ischemic appearing areas in the ascending colon and more thickening in the descending colon. I hope that she will do well with the irrigation and her white count should improve by tomorrow if this works as planned. As her colon clears I suspect her ileus will as well and she will start to be able to take the vancomycin orally. These colonic tubes tend not to stay in place for very long. 01/09/17--Unfortunately, after the colonoscopy yesterday and placement of the colonic tube for vancomycin irrigation the patient was able to get some vancomycin irrigated into her colon however at about 3:00 in the morning experienced respiratory distress and mental status change. She attempts to get out of her bed and was actually throwing feces at the nursing staff, attempting to get out of her bed to put on her pajamas and nearly removed her pacer wires as well as her rectal tube by report. We are unsure as to how far up the rectal tube now goes. She was given some Haldol but absolutely refused to be intubated and is currently on CPAP. Unless her white count comes down extensively and she starts to wake up and follow some commands I suspect a surgery may be headed to surgery in the near future unless she refuses that as well and is deemed competent. 01/10/17--Surprisingly, the rectal tube is still in place, and the patient is doing fairly well at this point-- her white blood cell count is now down to about 14,000. She overall feels better with less distention and passage of air per rectum. She would like to have the tube taken out but I think it needs to stay in for another day. Will order a KUB tomorrow to check the abdominal distention/ileus. I think we can go ahead and start the patient's solid feedings now, if her ileus appears to be quite pronounced tomorrow we may even have to consider use of a promotility agent, although this certainly might make her diarrhea worse. 01/11/17--The patient's rectal tube is again still in place. Rectal irrigation continues with 500 mg every 6 and her distention seems only slightly improved from yesterday with white blood cell count going up from 13.9-->14.9. The patient still seems fairly distended and I believe this is likely the ongoing ileus. I started her on a pured diet to see how she does with this but I think we need also some motility enhancement to clear her ileus to allow the oral medication to take over when the rectal tube falls out. I am going to stop her Phenergan and start a low-dose of Reglan 5 mg IV every 6 to see if we can get the distention down, possibly at the randolph of more diarrhea. 01/12/17--the patient's white blood cell count is now down in the normal range at 11.6. The rectal tube has been removed as the external port had torn and the tube failed completely early this morning, nursing staff went ahead and remove this entirely seeing is the white blood cell count was back in our normal parameters. She is tolerating the Reglan and the vancomycin adequately. She is eating approximately quarter of her lactose-free pured diet. In fact her major complaint aside from the generalized bloating is the CPAP which she dearly wishes to have discontinued. As mentioned below, the patient desaturates quite significantly when this is removed. Nursing staff is initiating a 30-minute trial again to show this to the patient. As she is doing quite adequately at this time I will sign off the case. Note that the patient's belly will take days to weeks to shrink back to its previous size once full healing takes place. She has a fairly significant C. difficile infection and I would not stop her antibiotics for another week--i.e. vancomycin suspension 250 mg 4 times daily 7 more days. Current Visit: Yes (2) Ascites Status: Acute Assessment and plan: Likely related to the patient's underlying infection however the patient sounds like she had been alcoholic from age [age], on physical exam does not appear to have a great deal of ascites, likely this will reabsorb as the infection is treated. LFTs are not significantly elevated, and the appearance of the liver on CT scan is unremarkable this admission. We will continue to observe and consider doing a ultrasound down the road to recheck the level of ascites. 01/07/17--The patient is in samanta fluid overload at this time--I wonder if the ascites is cardiac in nature associated with congestive heart failure. Or simply third spacing? Agree with use of Lasix in the short-term. If the tap is contemplated with suggest obtaining serum albumin and ascitic albumin for a gradient check (i.e. look for evidence of portal hypertension). 01/08/17--Patient appears overall better from yesterday. Although abdomen is distended it is not as firm as it was yesterday. 01/09/17--Ascites appears better. 01/09/17--Improved. I believe most of the patient's distention is likely due to trapped gas. 01/10/17--No change. 01/11/17--improved Current Visit: Yes (3) Drug rash Status: Acute Assessment and plan: This may be due to previous exposure to penicillins in the past and is delayed manifestation versus a reaction perhaps to Flagyl. She needs to Flagyl and so will probably observe her with this rash for the present time. If her white count drops into the 12 range, we could likely discontinue the medication and watch her on oral vancomycin alone. 01/07/17--unfortunately the drug rash worsened to the point where the Flagyl need to be discontinued yesterday. The Flagyl may or may not have been related to the volume overload picture. Agree with Lasix, observe for now. 01/08/17--The patient rash appears to be peaking hopefully this will begin to dissipate over the next 48-72 hours. Continue observation, Atarax if needed for itching. 01/09/17--The drug rash appears to be improving. 01/10/17--The patient drug rash appears to be improving. 01/11/17--Improving 01/12/17--Drug rash continues to improve. Current Visit: Yes (4) Leukocytosis Status: Acute Assessment and plan: A parameter of the above sepsis/C. difficile infection. This appears to be improving in time as does her lactic acid level--hopefully she will not require surgery although she is not "out of the vasques" yet. 01/07/17--Continue observation white blood cell count. No significant change yet. 01/08/17--This morning white blood cell count was higher than previous. Unfortunately she had also developed an intermittent complete heart, requiring a temporary pacemaker placement. Until the patient's colitis is under better control she is not anticipated to obtain a more permanent pacer. We will continue to monitor this on a daily basis hopefully if down tomorrow she will be able to avoid a colectomy. 01/09/17--the white blood cell count is not back yet. Trend will determine whether or not this patient has to go to surgery or not. She refused her vancomycin this morning. 01/10/17--taking the oral vancomycin, taking the rectal vancomycin irrigant as well. I suspect that if her leukocytosis is improved to 12-13 range we can likely discontinue the vancomycin rectally entirely. 01/11/17--With the white blood cell count going back up again we will plan on leaving and the rectal irrigation tube today although I suspect this will probably fall out spontaneously in the near future. X-ray today demonstrates dilated small and large bowel. 01/12/17--White blood cell count is down to 11.6. She is safe to switch to oral vancomycin alone, she can follow-up with me as needed in the future if her symptoms recur as an outpatient once the 7 day period of therapy has been completed. This patient may be a candidate for fecal transplant if she develops recurrent C. difficile colitis. Thank you for the opportunity to participate in this very pleasant patient's care. The patient may benefit from use of probiotics once her vancomycin course is complete with something like Madhuri-Q 1 tablet daily or Bacid 1 tablet twice daily. Would continue this for at least a month. Current Visit: Yes Gastroenterology - PN: Subj Interval history: Unfortunately Doris is getting confused whenever her CPAP is off and she desaturates down into the 70s as per the nursing staff (Susanna). She is eating perhaps 25% of her low lactose, pured diet. Her white blood cell count is finally back into the 11 K range and the rectum tube has been removed. She does not need any further rectal irrigation. She has been started on the Reglan which is decreasing her bloating slightly. Bowel movements are steady at 4 per day. Exam (Progress Note) - Constitutional Vitals: Period Temp Pulse Resp BP Sys/Mccall Pulse Ox Last 24 Hr 97.8 F-99.0 F 87-108 18-29 129-167/61-80 81-91 General appearance: mild distress - Head Head exam: Present: normocephalic - Eye Eye exam: Present: EOMI - ENT ENT exam: Present: other (Severe irritation from CPAP.) - Respiratory Respiratory exam: Present: clear to auscultation bilaterally - Cardiovascular Cardiovascular exam: Present: regular rate and rhythm - GI/Abdominal GI/Abdominal exam: Present: normal bowel sounds, distended, tenderness (Very mild diffuse tenderness to deep palpation, significant tympany), soft. Absent: guarding, rebound - Back Exam Back exam: Present: normal inspection - Neurological Exam Neurological exam: Present: alert, oriented X3, CN II-XII intact. Absent: motor sensory deficit - Psychiatric Psychiatric exam: Present: normal affect, agitated - Skin Skin exam: Present: warm Results - Labs CBC & BMP: 01/12/17 03:57 01/12/17 03:57
[2017-01-12] MEDS: METOCLOPRAMIDE 10 MG/10 ML UDCUP PO SCH ×3 (12:39→20:54)
[2017-01-12] MEDS: diphenhydrAMINE CAP 25 MG CAPSULE PO PRN (15:56)
[2017-01-12] MEDS: MIRTAZAPINE 15 MG TABLET PO SCH (20:52)
[2017-01-12] MEDS: traZODone 50 MG TABLET PO PRN (20:54)
[2017-01-13] MEDS: VANCOMYCIN 50 MG/ML 60 ML/BOTTLE PO SCH ×4 (01:49→17:35)
[2017-01-13] MEDS: diphenhydrAMINE CAP 25 MG CAPSULE PO PRN (01:49)
[2017-01-13] MEDS: HYDROmorphone 2 MG/1 ML VIAL IV PRN ×4 (04:59→17:40)
[2017-01-13 05:08] LABS: Basophils % 0.2 % (0.0-0.8); Eosinophils % 0.2 % (0.00-10.9); Hematocrit 30.6 VOL% (35.7-47.0); Hemoglobin 10.5 GM/DL (12.0-16.0); Immature Granulocytes % 0.7 %; Immature Granulocytes Absolute 0.08 #; Lymphocytes # 1.3 10*3/uL (1.4-4.0); Lymphocytes % 10.4 % (21.3-54.2); Mean Corpuscular HGB Conc 34.3 GM/DL (32-36); Mean Corpuscular Hemoglobin 33 PG (27-34); Mean Corpuscular Volume 97.1 FL (87-102); Mean Platelet Volume 9.9 FL (9.6-12.0); Monocytes % 7.9 % (1.7-12.7); Neutrophils # 9.9 10*3/uL (1.4-7.4); Neutrophils % 80.6 % (38.7-73.9); Platelet Count 174 T/CUMM (130-400); Red Blood Count 3.15 MC/CUMM (3.8-5.5); Red Cell Distribution Width 15.8 % (9.3-17.3); White Blood Count 12.3 T/CUMM (4-12)
[2017-01-13 05:33] LABS: Bilirubin,Total 0.8 MG/DL (0.2-1.0); Calcium 7.5 MG/DL (8.5-10.1); Osmolality,Calculated 276.4 MOS/KG (273-304); Potassium 3.3 MMOL/L (3.5-5.1); Total Protein 5.3 G/DL (6.4-8.3)
[2017-01-13] MEDS: POTASSIUM CHLORIDE 20 MEQ TABLET PO PRN ×2 (06:40→09:24)
[2017-01-13] MEDS: amLODIPine 5 MG TABLET PO SCH (08:05)
[2017-01-13] MEDS: METOCLOPRAMIDE 10 MG/10 ML UDCUP PO SCH ×4 (08:05→21:23)
[2017-01-13] MEDS: DESITIN 4OZ/NYSTATIN 15 GRAM MIXTURE PASTE TOP SCH ×2 (08:05→21:24)
[2017-01-13] MEDS: PARoxetine 10 MG TABLET PO SCH (08:05)
[2017-01-13] MEDS: PANTOPRAZOLE 40 MG TABLET PO SCH (08:06)
[2017-01-13] MEDS: ENOXAPARIN 40 MG/0.4 ML SYRINGE SUBCUT SCH (08:06)
[2017-01-13] MEDS: busPIRone 5 MG TABLET PO SCH ×3 (08:06→21:23)
[2017-01-13] MEDS ORDERED: MAGNESIUM SULF RIDER 4 GM in PREMIX 1 EACH IV PRN (09:11)
[2017-01-13] MEDS ORDERED: MAGNESIUM SULF RIDER 2 GM in PREMIX 1 EACH IV PRN (09:11)
--- NOTE | 2017-01-13 09:13 | Hospitalist Progress Note ---
Addendum entered and electronically signed by Kemi Ding PA 01/13/17 09:21: Forgot to mention since patient has not eaten in quite a while and she is cachectic, will go ahead and start her on some PPN today. Dietary has been consulted to assist with this. We will also get PT and OT to see the patient and have social security specialist start working on discharge planning. Patient will likely be very weak in need swing bed or rehab. Original Note: Assessment and Plan - Time spent with patient Time spent with patient: Less than 30 minutes (1) Leukocytosis Status: Acute Assessment and plan: Ms. Gillette is a 61-year-old white female with history of COPD and chronic back pain admitted by the hospitalist service in severe sepsis due to C. difficile colitis. Per severe sepsis protocol patient has leukocytosis, tachycardia, tachypnea, and lactic acid greater than 4. Patient will be admitted to the ICU at least overnight. Will initiate the sepsis protocol given IV fluids and rechecking her labs in the morning. She will be started on IV Flagyl and medicines for nausea and diarrhea. Patient denies history of hypertension but her blood pressures are elevated. Will give her some as needed meds for this. She also has acute kidney injury due to dehydration and this should correct with her IV fluids. Will restart her home medicines when they get entered into the system. Dr. Cheatham will see and examine patient and further recommendations to follow. 01/13/2017 patient is feeling a little better although still with complaints of abdominal pain and distention. She is being transferred to the floor today. Dr. Lomas to see and examined patient and further recommendations to follow. C. difficile--patient is on oral vancomycin. Her rectal tube has been DC'd by GI along with a rectal vancomycin. She has not had any BMs but she is passing flatus. She is still moderately distended with mild tenderness on exam. Dr. Donald has signed off. Dr. Montano from GI continues to follow. Her WBCs are 12.3 this morning. Severe sepsis--resolved Ileus--patient is tolerating liquids. She is not eating her pured diet. Today will be day 3 of Reglan that was started by Dr. Montano. She is passing flatus. She continues to be distended and mildly tender on exam COPD--patient is on O2 by nasal cannula. Duo nebs. No steroids. She seems to be breathing comfortably and is not wheezing. Ascites--this is being followed by Dr. Montano. He hopes this will improve as her infection clears. Drug rash--this was likely from her Flagyl and this is been DC'd. It seems to be improving. Bradycardia/temporary cardiac pacemaker--this is all resolved and temporary pacemaker has been removed. Cardiology has signed off. This is most likely due to her infection and illness. Hypomagnesemia--1.7 yesterday. Replaced per protocol with IV mag Hypokalemia--3.3 today. Replaced per protocol with p.o. meds Current Visit: Yes (2) Hyperglycemia Status: Acute Current Visit: Yes (3) Severe sepsis Status: Resolved Current Visit: Yes (4) Ascites Status: Acute Current Visit: Yes (5) C. difficile colitis Status: Acute Current Visit: Yes (6) Metabolic acidosis Status: Acute Current Visit: Yes Hospitalist: Subjective Interval history: Patient is feeling a lot better this morning she is still complaining of abdominal pain and bloating. This is requiring narcotics. She is drinking her broth but she is not eating the pured diet. She states she just has no appetite. She is passing flatus but no BMs. Exam - Constitutional Vitals: Period Temp Pulse Resp BP Sys/Mccall Pulse Ox Last 24 Hr 98.4 F-99.2 F 77-106 19-29 104-176/53-85 86-97 Exam: 61-year-old white female, no acute distress, alert and oriented Cachectic Chest clear CV regular rate and rhythm Abdomen moderately distended and mildly tender Extremities no edema Results - Labs CBC & BMP: 01/13/17 04:52 01/13/17 04:52 Lab Results: I have reviewed the past 24 hour labs
[2017-01-13] MEDS ORDERED: DEXTROSE 10% 1,000 ML IV PRN (17:00)
[2017-01-13] MEDS: MULTIVITAMIN INJ 10 ML, TRACE ELEMENTS (5) 1 ML in AMINO ACIDS/DEXT/LYTES 4.25-5% 2,000 ML IV SCH (17:35)
[2017-01-13] MEDS: FAT EMULSION 20% 250 ML IV SCH (17:36)
[2017-01-13] MEDS: MIRTAZAPINE 15 MG TABLET PO SCH (21:23)
[2017-01-14] MEDS: VANCOMYCIN 50 MG/ML 60 ML/BOTTLE PO SCH ×5 (00:20→23:54)
[2017-01-14 04:50] LABS: Basophils % 0.1 % (0.0-0.8); Eosinophils % 0.3 % (0.00-10.9); Hematocrit 33.9 VOL% (35.7-47.0); Hemoglobin 11.3 GM/DL (12.0-16.0); Immature Granulocytes % 0.8 %; Immature Granulocytes Absolute 0.09 #; Lymphocytes # 1.3 10*3/uL (1.4-4.0); Lymphocytes % 11.2 % (21.3-54.2); Mean Corpuscular HGB Conc 33.3 GM/DL (32-36); Mean Corpuscular Hemoglobin 33 PG (27-34); Mean Corpuscular Volume 97.7 FL (87-102); Mean Platelet Volume 10.3 FL (9.6-12.0); Neutrophils % 78.6 % (38.7-73.9); Platelet Count 201 T/CUMM (130-400); Red Blood Count 3.47 MC/CUMM (3.8-5.5); Red Cell Distribution Width 15.8 % (9.3-17.3); White Blood Count 11.5 T/CUMM (4-12)
[2017-01-14 05:32] LABS: Calcium 7.6 MG/DL (8.5-10.1); Osmolality,Calculated 273.8 MOS/KG (273-304); Potassium 3.2 MMOL/L (3.5-5.1)
[2017-01-14 05:34] LABS: Magnesium 1.9 MG/DL (1.8-2.4); Phosphorous 3.5 MG/DL (2.5-4.9); Prealbumin 7.6 MG/DL (20-40)
[2017-01-14] MEDS: PANTOPRAZOLE 40 MG TABLET PO SCH (08:09)
[2017-01-14] MEDS: amLODIPine 5 MG TABLET PO SCH (08:09)
[2017-01-14] MEDS: METOCLOPRAMIDE 10 MG/10 ML UDCUP PO SCH ×4 (08:09→20:49)
[2017-01-14] MEDS: PARoxetine 10 MG TABLET PO SCH (08:09)
[2017-01-14] MEDS: guaiFENesin/DM ER 600-30 MG TABLET PO PRN (08:09)
[2017-01-14] MEDS: ENOXAPARIN 40 MG/0.4 ML SYRINGE SUBCUT SCH (08:09)
[2017-01-14] MEDS: busPIRone 5 MG TABLET PO SCH ×3 (08:09→20:50)
--- NOTE | 2017-01-14 09:07 | Hospitalist Progress Note ---
Assessment and Plan (1) C. difficile colitis Status: Acute Assessment and plan: Impression: 1. C. difficile colitis 2. Chronic pain 3. Severe malnutrition Plan: Discontinue injectable opioids. I will resume her oral hydrocodone. I see that she is being evaluated for transfer to rehab unit. I do not think she is ready to go yet. This note was completed using [employer] voice recognition software. There may be day camp counselor errors as a result. Current Visit: Yes Hospitalist: Subjective Interval history: Follow-up C. difficile colitis and chronic severe malnutrition. The patient continues to have loose stools, and the staff reports 5 or 6 stools last night. The patient cannot tell when she needs to move her bowels. Her only complaint today is back pain, which she has had for 4 years. She says that she takes 4 Lortab every day, and has done this for several years under the care of Dr. Gtz. The staff reports that the patient has been receiving Dilaudid injections, but continues to complain of pain. Exam - Constitutional Vitals: Period Temp Pulse Resp BP Sys/Mccall Pulse Ox Last 24 Hr 96.7 F-99.7 F 68-89 14-28 132-164/65-79 86-93 Vital signs are noted above. Heart is regular with distant tones and a soft systolic murmur. She has a prolonged expiratory phase. Abdomen is protuberant with hyperactive bowel sounds and some generalized tenderness. She appears chronically ill and severely malnourished. She is awake and alert. Results - Labs CBC & BMP: 01/14/17 04:29 01/14/17 04:29 Lab Results: I have reviewed the past 24 hour labs
[2017-01-14] MEDS: FAT EMULSION 20% 250 ML IV SCH (14:12)
[2017-01-14] MEDS: DESITIN 4OZ/NYSTATIN 15 GRAM MIXTURE PASTE TOP SCH ×2 (14:13→21:51)
[2017-01-14] MEDS: MULTIVITAMIN INJ 10 ML, TRACE ELEMENTS (5) 1 ML in AMINO ACIDS/DEXT/LYTES 4.25-5% 2,000 ML IV SCH (17:17)
[2017-01-14] MEDS: MIRTAZAPINE 15 MG TABLET PO SCH (20:50)
[2017-01-14] MEDS: POTASSIUM CHLORIDE 20 MEQ TABLET PO PRN ×2 (20:50→23:44)
[2017-01-15] MEDS: POTASSIUM CHLORIDE 20 MEQ TABLET PO PRN ×4 (02:10→16:00)
[2017-01-15] MEDS: VANCOMYCIN 50 MG/ML 60 ML/BOTTLE PO SCH ×3 (05:29→17:38)
--- NOTE | 2017-01-15 08:21 | Hospitalist Progress Note ---
Assessment and Plan (1) C. difficile colitis Status: Acute Assessment and plan: Impression: 1. C. difficile colitis 2. Chronic pain 3. Severe malnutrition Plan: She looks good today. She should be ready for transfer to the rehab unit once she is accepted. This note was completed using [employer] voice recognition software. There may be operations lieutenant errors as a result. Current Visit: Yes Hospitalist: Subjective Interval history: Follow-up C. difficile colitis and chronic severe malnutrition. The patient looks much better today. She is sitting up in the bed eating. She has been able to make it to the bathroom. She says that her stools are less frequent, and also are becoming more formed. It appears that she may be ready for transfer to the rehab unit. Exam - Constitutional Vitals: Period Temp Pulse Resp BP Sys/Mccall Pulse Ox Last 24 Hr 97.3 F-99.8 F 81-94 18-28 144-173/66-81 92-92 Vital signs are noted above. Heart is regular with distant tones and no murmur. Lungs are fairly clear. Abdomen is protuberant with positive bowel sounds. She is awake and alert. Results - Labs CBC & BMP: 01/14/17 04:29 01/14/17 04:29
[2017-01-15] MEDS: METOCLOPRAMIDE 10 MG/10 ML UDCUP PO SCH ×4 (08:40→20:38)
[2017-01-15] MEDS: ENOXAPARIN 40 MG/0.4 ML SYRINGE SUBCUT SCH (08:40)
[2017-01-15] MEDS: amLODIPine 5 MG TABLET PO SCH (08:40)
[2017-01-15] MEDS: PARoxetine 10 MG TABLET PO SCH (08:40)
[2017-01-15] MEDS: busPIRone 5 MG TABLET PO SCH ×3 (08:40→20:38)
[2017-01-15] MEDS: PANTOPRAZOLE 40 MG TABLET PO SCH (08:40)
[2017-01-15] MEDS: DESITIN 4OZ/NYSTATIN 15 GRAM MIXTURE PASTE TOP SCH ×2 (08:42→20:39)
[2017-01-15] MEDS: MULTIVITAMIN INJ 10 ML, TRACE ELEMENTS (5) 1 ML in AMINO ACIDS/DEXT/LYTES 4.25-5% 2,000 ML IV SCH (16:00)
[2017-01-15] MEDS: FAT EMULSION 20% 250 ML IV SCH (16:01)
[2017-01-15] MEDS: MIRTAZAPINE 15 MG TABLET PO SCH (20:38)
[2017-01-15] MEDS: guaiFENesin/DM ER 600-30 MG TABLET PO PRN (20:39)
[2017-01-15] MEDS: ACETAMINOPHEN 325 MG TABLET PO PRN (20:39)
[2017-01-16] MEDS: VANCOMYCIN 50 MG/ML 60 ML/BOTTLE PO SCH ×5 (00:57→23:45)
[2017-01-16] MEDS: ENOXAPARIN 40 MG/0.4 ML SYRINGE SUBCUT SCH (08:48)
[2017-01-16] MEDS: METOCLOPRAMIDE 10 MG/10 ML UDCUP PO SCH ×4 (08:48→21:42)
[2017-01-16] MEDS: busPIRone 5 MG TABLET PO SCH ×3 (08:49→21:42)
[2017-01-16] MEDS: DESITIN 4OZ/NYSTATIN 15 GRAM MIXTURE PASTE TOP SCH ×2 (08:49→21:43)
[2017-01-16] MEDS: PANTOPRAZOLE 40 MG TABLET PO SCH (08:49)
[2017-01-16] MEDS: amLODIPine 5 MG TABLET PO SCH (08:49)
[2017-01-16] MEDS: PARoxetine 10 MG TABLET PO SCH (08:49)
--- NOTE | 2017-01-16 10:03 | Hospitalist Progress Note ---
Assessment and Plan - Time spent with patient Time spent with patient: Greater than 30 minutes (1) C. difficile colitis Status: Acute Current Visit: Yes (2) Metabolic acidosis Status: Acute Current Visit: Yes (3) Leukocytosis Status: Acute Current Visit: Yes (4) Severe sepsis Status: Resolved Assessment and plan: She is still on TPN and this is likely because of inadequate oral intake. We will continue to do so while checking a calorie count and then gradually wean her off parenteral nutrition once oral intake becomes adequate. Continue placement arrangement. Continue oral vancomycin. Monitor vitals, if she continues to have low-grade fever may need to repeat blood culture auto workup for fever. Continue placement arraignment. Current Visit: Yes Hospitalist: Subjective Interval history: Elderly woman who is for a weak but reportedly in a better state that she has been in a couple of weeks. Monitor for severe C. difficile colitis which has now improved [facility]. She is sitting up in bed on tolerating feeds. She denies any complaints other than generalized weakness. Exam - Constitutional Vitals: Period Temp Pulse Resp BP Sys/Mccall Pulse Ox Last 24 Hr 98.7 F-100.8 F 82-103 18-24 131-161/60-76 92-95 Exam: General appearance: Chronically ill looking - Eye Eye exam: Present: EOMI. Absent: scleral icterus - Respiratory Respiratory exam: Present: clear to auscultation bilaterally. Absent: wheezes - Cardiovascular Cardiovascular exam: Present: regular rate and rhythm - GI/Abdominal GI/Abdominal exam: Present: distended, hypoactive bowel sounds, soft. Absent: tenderness - Extremities Exam Extremities exam: Absent: edema - Neurological Exam Neurological exam: Present: alert, oriented X3 - Skin Skin exam: Present: warm, dry Results - Labs CBC & BMP: 01/14/17 04:29 01/15/17 11:03 Labs: No new labs reported.
[2017-01-16] MEDS: FAT EMULSION 20% 250 ML IV SCH (15:01)
[2017-01-16] MEDS: MULTIVITAMIN INJ 10 ML, TRACE ELEMENTS (5) 1 ML in AMINO ACIDS/DEXT/LYTES 4.25-5% 2,000 ML IV SCH (18:25)
[2017-01-16] MEDS: MIRTAZAPINE 15 MG TABLET PO SCH (21:43)
[2017-01-16] MEDS: traZODone 50 MG TABLET PO PRN (21:47)
[2017-01-17] MEDS: VANCOMYCIN 50 MG/ML 60 ML/BOTTLE PO SCH ×3 (06:31→19:11)
--- NOTE | 2017-01-17 08:38 | Hospitalist Progress Note ---
Assessment and Plan - Time spent with patient Time spent with patient: Greater than 30 minutes (1) C. difficile colitis Status: Acute Current Visit: Yes (2) Metabolic acidosis Status: Acute Current Visit: Yes (3) Leukocytosis Status: Acute Current Visit: Yes (4) Severe sepsis Status: Resolved Assessment and plan: We will ask nutrition team to see if it is time to wean her off parenteral nutrition as her oral intake seems to have improved. Continue oral vancomycin. We will send repeat stool C. difficile Continue other management Current Visit: Yes Hospitalist: Subjective Interval history: She had a quiet night, no new problems. Strength continues to improve slowly. No fever. She was declined by 1 of the rehab facilities yesterday, new referrals have been sent out. Exam - Constitutional Vitals: Period Temp Pulse Resp BP Sys/Mccall Pulse Ox Last 24 Hr 98.4 F-99.5 F 18-108 16-20 125-171/63-82 88-95 Exam: General appearance: Chronically ill looking - Eye Eye exam: Present: EOMI. Absent: scleral icterus - Respiratory Respiratory exam: Present: clear to auscultation bilaterally. Absent: wheezes - Cardiovascular Cardiovascular exam: Present: regular rate and rhythm - GI/Abdominal GI/Abdominal exam: Present: distended, hypoactive bowel sounds, soft. Absent: tenderness - Extremities Exam Extremities exam: Absent: edema - Neurological Exam Neurological exam: Present: alert, oriented X3 - Skin Skin exam: Present: warm, dry Results - Labs CBC & BMP: 01/14/17 04:29 01/15/17 11:03
[2017-01-17] MEDS: busPIRone 5 MG TABLET PO SCH ×3 (09:53→20:51)
[2017-01-17] MEDS: PANTOPRAZOLE 40 MG TABLET PO SCH (09:53)
[2017-01-17] MEDS: amLODIPine 5 MG TABLET PO SCH (09:53)
[2017-01-17] MEDS: PARoxetine 10 MG TABLET PO SCH (09:53)
[2017-01-17] MEDS: METOCLOPRAMIDE 10 MG/10 ML UDCUP PO SCH ×4 (09:53→20:42)
[2017-01-17] MEDS: ENOXAPARIN 40 MG/0.4 ML SYRINGE SUBCUT SCH (09:53)
[2017-01-17] MEDS: DESITIN 4OZ/NYSTATIN 15 GRAM MIXTURE PASTE TOP SCH ×2 (09:57→20:52)
[2017-01-17] MEDS: ACETAMINOPHEN 325 MG TABLET PO PRN (20:40)
[2017-01-17] MEDS: MIRTAZAPINE 15 MG TABLET PO SCH (20:42)
[2017-01-18] MEDS: VANCOMYCIN 50 MG/ML 60 ML/BOTTLE PO SCH ×4 (00:59→18:06)
--- NOTE | 2017-01-18 09:08 | Hospitalist Progress Note ---
Assessment and Plan - Time spent with patient Time spent with patient: Greater than 30 minutes (1) C. difficile colitis Status: Acute Current Visit: Yes (2) Metabolic acidosis Status: Acute Current Visit: Yes (3) Leukocytosis Status: Acute Current Visit: Yes (4) Severe sepsis Status: Resolved Assessment and plan: Now weaned her off parenteral nutrition as her oral intake seems to have improved. Encourage oral intake. Nutrition team following Continue oral vancomycin for about another week. Continue other management Resume placement arraignment tomorrow. She is stable enough for discharge once placement is found. Current Visit: Yes Hospitalist: Subjective Interval history: This 61-year-old lady has had a prolonged hospital stay, she was admitted for abdominal pain and diarrhea, found to have C. difficile colitis which has now been treated, repeat stool C. difficile from yesterday was negative. Her oral intake has also improved and we have successfully wean her off PPN. We are in the process of placing at the rehab facility for further care because of severe debilitation from acute illness, so far she has been declined by 1 of the facilities and we are awaiting response from the others. Overnight, no new events. Exam - Constitutional Vitals: Period Temp Pulse Resp BP Sys/Mccall Pulse Ox Last 24 Hr 98.6 F-101.2 F 86-104 18-24 128-157/64-69 89-94 Exam: General appearance: Chronically ill looking - Eye Eye exam: Present: EOMI. Absent: scleral icterus - Respiratory Respiratory exam: Present: clear to auscultation bilaterally. Absent: wheezes - Cardiovascular Cardiovascular exam: Present: regular rate and rhythm - GI/Abdominal GI/Abdominal exam: Present: distended, hypoactive bowel sounds, soft. Absent: tenderness - Extremities Exam Extremities exam: Absent: edema - Neurological Exam Neurological exam: Present: alert, oriented X3 - Skin Skin exam: Present: warm, dry Results - Labs CBC & BMP: 01/14/17 04:29 01/15/17 11:03 Lab Results: I have reviewed the past 24 hour labs
[2017-01-18] MEDS: PARoxetine 10 MG TABLET PO SCH (09:46)
[2017-01-18] MEDS: METOCLOPRAMIDE 10 MG/10 ML UDCUP PO SCH ×4 (09:46→20:35)
[2017-01-18] MEDS: ENOXAPARIN 40 MG/0.4 ML SYRINGE SUBCUT SCH (09:46)
[2017-01-18] MEDS: PANTOPRAZOLE 40 MG TABLET PO SCH (09:46)
[2017-01-18] MEDS: busPIRone 5 MG TABLET PO SCH ×3 (09:46→20:36)
[2017-01-18] MEDS: ONDANSETRON 4 MG/2 ML VIAL IV PRN (09:47)
[2017-01-18] MEDS: DESITIN 4OZ/NYSTATIN 15 GRAM MIXTURE PASTE TOP SCH ×2 (10:27→20:35)
[2017-01-18] MEDS: amLODIPine 5 MG TABLET PO SCH (15:03)
[2017-01-18] MEDS: MIRTAZAPINE 15 MG TABLET PO SCH (20:36)
[2017-01-19] MEDS: VANCOMYCIN 50 MG/ML 60 ML/BOTTLE PO SCH ×4 (01:07→17:24)
[2017-01-19 06:01] LABS: Calcium 7.4 MG/DL (8.5-10.1); Magnesium 1.9 MG/DL (1.8-2.4); Osmolality,Calculated 273.8 MOS/KG (273-304); Phosphorous 3.2 MG/DL (2.5-4.9); Potassium 3.2 MMOL/L (3.5-5.1); Prealbumin 9.4 MG/DL (20-40)
[2017-01-19] MEDS: METOCLOPRAMIDE 10 MG/10 ML UDCUP PO SCH ×4 (07:50→20:32)
[2017-01-19] MEDS: ENOXAPARIN 40 MG/0.4 ML SYRINGE SUBCUT SCH (09:35)
[2017-01-19] MEDS: PARoxetine 10 MG TABLET PO SCH (09:36)
[2017-01-19] MEDS: busPIRone 5 MG TABLET PO SCH ×3 (09:36→20:34)
[2017-01-19] MEDS: amLODIPine 5 MG TABLET PO SCH (09:36)
[2017-01-19] MEDS: PANTOPRAZOLE 40 MG TABLET PO SCH (09:36)
[2017-01-19] MEDS: DESITIN 4OZ/NYSTATIN 15 GRAM MIXTURE PASTE TOP SCH ×2 (09:39→20:35)
[2017-01-19] MEDS: ACETAMINOPHEN 325 MG TABLET PO PRN ×2 (11:06→18:35)
[2017-01-19] MEDS: ONDANSETRON 4 MG/2 ML VIAL IV PRN (11:07)
[2017-01-19] MEDS ORDERED: LOPERAMIDE 2 MG CAPSULE PO ONE (13:25)
--- NOTE | 2017-01-19 19:10 | Hospitalist Progress Note ---
Assessment and Plan (1) Hypokalemia Status: Acute Assessment and plan: This is continued to be supplemented. BMP in a.m. Current Visit: Yes (2) C. difficile colitis Status: Resolved Assessment and plan: This issue is now resolved last stool studies were negative for C. difficile. Current Visit: Yes (3) Ascites Status: Chronic Current Visit: Yes (4) Hypertension Status: Chronic Current Visit: Yes Qualifiers: Hypertension type: essential hypertension Qualified Code(s): I10 - Essential (primary) hypertension (5) Ileus Status: Acute Assessment and plan: Continued ileus noted. Last x-ray was done last week we will get a KUB in a.m. Current Visit: Yes Hospitalist: Subjective Interval history: Patient is resting comfortably no acute changes. Last stool studies were negative for C. difficile. Continues to have some stomach upset. Starting Imodium today. Afebrile the rest of her vitals are stable. At this time awaiting for placement to a swing bed facility. Exam - Constitutional Vitals: Period Temp Pulse Resp BP Sys/Mccall Pulse Ox Last 24 Hr 98.6 F-99.9 F 87-103 2-24 131-156/67-83 90-92 General appearance: under weight - Head Head exam: Present: normal inspection - Eye Eye exam: Present: EOMI - ENT ENT exam: Present: normal exam - Respiratory Respiratory exam: Present: clear to auscultation bilaterally - Cardiovascular Cardiovascular exam: Present: regular rate and rhythm - GI/Abdominal GI/Abdominal exam: Present: normal bowel sounds - Extremities Exam Extremities exam: Present: normal inspection - Psychiatric Psychiatric exam: Present: normal affect - Skin Skin exam: Present: dry Results - Labs CBC & BMP: 01/14/17 04:29 01/19/17 04:31
[2017-01-19] MEDS: MIRTAZAPINE 15 MG TABLET PO SCH (20:33)
[2017-01-19] MEDS: traZODone 50 MG TABLET PO PRN (20:39)
[2017-01-20] MEDS: VANCOMYCIN 50 MG/ML 60 ML/BOTTLE PO SCH ×5 (00:43→23:55)
[2017-01-20] MEDS: POTASSIUM CHLORIDE 20 MEQ TABLET PO PRN ×4 (01:44→12:01)
--- NOTE | 2017-01-20 07:40 | XRay Report ---
XR KUB Indication: Patient with ileus Comparison: Abdominal x-ray dated January 11, 2017 Technique: Frontal views of the abdomen Findings: Continued moderate gaseous distention of the stomach. There is no significant distention of small or large bowel suggesting improving ileus. Visualized osseous and surrounding soft tissue structures appear grossly unchanged.. Diffuse osteopenia. Atelectatic calcifications. Bibasilar atelectasis/consolidation with small bilateral pleural fluid. IMPRESSION: As above. PROCEDURE INTERPRETED AT [facility] DEPARTMENT OF RADIOLOGY Final Report Signed by: Dr Louis John
--- NOTE | 2017-01-20 07:51 | Hospitalist Progress Note ---
Assessment and Plan (1) COPD (chronic obstructive pulmonary disease) Status: Chronic Current Visit: Yes (2) C. difficile colitis Status: Resolved Assessment and plan: Persistent gaseous distention with resolution of the C. difficile antigen positivity. Electrolyte abnormalities. Current Visit: Yes (3) History of temporary cardiac pacemaker treatment Status: Acute Assessment and plan: During her acute illness the patient was identified as having high-grade AV block associated with the inner venous and EKG with normal KS interval and QRS duration. Temporary pacemaker was placed subsequently withdrawn without recurrence. This was felt to be metabolic in origin. Current Visit: Yes Hospitalist: Subjective Interval history: 61-year-old female presenting on 03 January with acute watery diarrhea subsequent determination of the presence of C. difficile. She was treated and has resolved the C. difficile antigen positivity. She continues to have abdominal gas relatively loose bowel movements but no nausea or vomiting. She has underlying COPD with intermittent decrease in oxygen saturation over the last 24 hours. Repeat KUB this morning continues to show gaseous dilatation consistent with a previously identified ileus. She has had persistent hypokalemia on no diuretic. It is unclear regarding the volume of her persisting loose bowel movements and she has been receiving D10W without increased dose sodium load as a potential mechanism for the hypokalemia. She is anticipated for swing bed referral when available. Exam - Constitutional Vitals: Period Temp Pulse Resp BP Sys/Mccall Pulse Ox Last 24 Hr 98.1 F-99.3 F 87-117 2-21 122-193/65-83 90-96 General appearance: under weight - Respiratory Respiratory exam: Present: rhonchi. Absent: rales, wheezes - Cardiovascular Cardiovascular exam: Present: irregular rhythm, systolic murmur (Left lower sternal border) - GI/Abdominal GI/Abdominal exam: Present: hypoactive bowel sounds, tenderness, other (Diffuse tympany). Absent: firm - Extremities Exam Extremities exam: Absent: edema - Neurological Exam Neurological exam: Present: alert, oriented X3 Results - Labs CBC & BMP: 01/14/17 04:29 01/20/17 08:14
[2017-01-20 08:49] LABS: Calcium 7.7 MG/DL (8.5-10.1); Osmolality,Calculated 274.7 MOS/KG (273-304); Potassium 3.2 MMOL/L (3.5-5.1)
[2017-01-20] MEDS: PARoxetine 10 MG TABLET PO SCH (09:16)
[2017-01-20] MEDS: busPIRone 5 MG TABLET PO SCH ×3 (09:17→20:38)
[2017-01-20] MEDS: amLODIPine 5 MG TABLET PO SCH (09:18)
[2017-01-20] MEDS: PANTOPRAZOLE 40 MG TABLET PO SCH (09:18)
[2017-01-20] MEDS: METOCLOPRAMIDE 10 MG/10 ML UDCUP PO SCH ×4 (09:19→20:38)
[2017-01-20] MEDS: DESITIN 4OZ/NYSTATIN 15 GRAM MIXTURE PASTE TOP SCH ×2 (10:12→20:38)
[2017-01-20] MEDS: ENOXAPARIN 40 MG/0.4 ML SYRINGE SUBCUT SCH (10:12)
[2017-01-20] MEDS: MIRTAZAPINE 15 MG TABLET PO SCH (20:38)
[2017-01-20] MEDS: traZODone 50 MG TABLET PO PRN (20:38)
[2017-01-20] MEDS: ACETAMINOPHEN 325 MG TABLET PO PRN ×2 (23:48→23:49)
[2017-01-21] MEDS: VANCOMYCIN 50 MG/ML 60 ML/BOTTLE PO SCH (06:02)
[2017-01-21 07:47] VITALS: BP 156/74
[2017-01-21] MEDS: METOCLOPRAMIDE 10 MG/10 ML UDCUP PO SCH ×2 (08:30→11:24)
[2017-01-21] MEDS: busPIRone 5 MG TABLET PO SCH (08:30)
[2017-01-21] MEDS: PANTOPRAZOLE 40 MG TABLET PO SCH (08:30)
[2017-01-21] MEDS: ENOXAPARIN 40 MG/0.4 ML SYRINGE SUBCUT SCH (08:30)
[2017-01-21] MEDS: amLODIPine 5 MG TABLET PO SCH (08:30)
[2017-01-21] MEDS: PARoxetine 10 MG TABLET PO SCH (08:30)
--- NOTE | 2017-01-21 09:13 | Discharge Summary ---
Hospital Course - Hospital Course Hospital Course: 61-year-old female presented on 03 January with acute watery diarrhea subsequent determination of the presence of C. difficile she received appropriate treatment and continued to have diarrhea on repeat C. difficile antigen was negative. She was felt to have an ileus with associated hypokalemia which was addressed. In the 24 hours prior to discharge the patient is had significant flatus and a marked decrease in tympany. She required physical therapy during the hospital stay and is currently for admission to [facility] to continue this. She has a history of COPD which remained stable during the hospital course. Diagnosis - Discharge Diagnosis (1) COPD (chronic obstructive pulmonary disease) Status: Chronic (2) C. difficile colitis Status: Resolved (3) History of temporary cardiac pacemaker treatment Status: Acute Discharge Plan - Discharge Data Disposition: Disch/er- Rehab Fac Condition at Discharge: Stable Discharge Diet: advance to your usual diet Activity: as per physical therapy - Discharge Medications New Albuterol/Ipratropium Neb [Duoneb] 3 ml RESP TX RT Q6H PRN PRN Reason: Shortness Of Breath/Wheezing amLODIPine [Norvasc] 5 mg PO DAILY tablet busPIRone [Buspar] 15 mg PO TID tablet Metoclopramide Liquid [Reglan Liquid] 5 mg PO ACHS Nicotine 21 mg/24 Hr Patch [Nicoderm CQ 21 mg/24 hr Patch] 1 patch TRANSDERM DAILY PRN patch PRN Reason: Nicotine Cravings Pantoprazole Tab [Protonix Tab] 40 mg PO DAILY tablet PARoxetine [Paxil] 10 mg PO QAM tablet Acetaminophen Tab [Tylenol Tab] 325 mg PO Q4H PRN tablet PRN Reason: fever, headache/body aches Albuterol Neb [Proventil Neb] 2.5 mg RESP TX RT Q6H PRN PRN Reason: Shortness Of Breath Mirtazapine [Remeron] 15 mg PO BEDTIME tablet Continue Amlodipine Besylate 5 mg PO DAILY Discontinued Buspirone HCl [Buspirone HCl] 15 mg PO TID HYDROcodone/ACETAMIN 7.5-325 [[place] 7.5-325] 1 tablet PO Q6H PRN PRN Reason: Pain Trazodone HCl 100 mg PO BEDTIME PRN PRN Reason: Insomnia Mirtazapine [Mirtazapine] 15 mg PO BEDTIME Albuterol Sulfate [Ventolin HFA] 2 puffs INH Q6H PRN PRN Reason: Shortness Of Breath/Wheezing PARoxetine HCl [Paroxetine HCl] 10 mg PO QAM - Follow Up or Referral - Forms/Instructions Exam - Constitutional Vitals: Period Temp Pulse Resp BP Sys/Mccall Pulse Ox Last 24 Hr 97.9 F-100.7 F 83-112 18-22 130-156/55-79 90-95 Discharge Results Procedures and tests throughout hospitalization: Pending Orders 01/08/17 08:28 CL heart Routine 01/22/17 04:00 Basic Metabolic Panel MOTH Magnesium MOTH Phosphorous MOTH Triglycerides MOTH DS: Provider Date of admission: 01/03/17 10:09 Primary care physician: . No PCP Attending physician on admission: New [place] MD Consults: 01/03/17 14:21 Consult to Dietitian [CONS] Routine Reason for Dietitian: Dietary Consult Consult Comment: weight loss 01/06/17 12:38 Consult to Physician [CONS] Routine Comment: Severe CDiff, with new ileus Consulting Provider: Saud Donald III. Consult to Specialist Group: Surgery When should Consulting Provider be notified: Now Person Notified: [email or web address] Date Notified: 01/06/17 Time Notified: 13:27 01/08/17 06:51 Consult to Physician [CONS] Routine Comment: Consulting Provider: Cardiology - [facility] Consult to Specialist Group: Cardiology When should Consulting Provider be notified: In am Person Notified: tomas Date Notified: 01/08/17 Time Notified: 07:31 01/13/17 09:10 Consult to Dietitian [CONS] Routine Reason for Dietitian: TPN/PPN-Initiate/Manage Consult Comment: start PPN 01/13/17 09:22 Consult to Case Mgmt/Social Srvs [CONS] Routine Reason for Case Mgmt/Social Srvs: Rehab Swingbed/SNF/Fdc Consult to Occupational Therapy [CONS] Routine Reason for Occupational Therapy: Evaluate and Treat Consult to Physical Therapy [CONS] Routine Reason for Physical Therapy: Evaluate and Treat 01/13/17 11:27 Consult to Case Mgmt/Social Srvs [CONS] Routine Reason for Case Mgmt/Social Srvs: Discharge Planning 01/17/17 09:49 Consult to Dietitian [CONS] Routine Reason for Dietitian: TPN/PPN-Initiate/Manage Consult Comment: pt on TPN pt eating better. wean off tpn Discharging clinician: Óscar Nava MD Expected date of discharge: 01/21/17
[2017-01-21] MEDS: ACETAMINOPHEN 325 MG TABLET PO PRN (10:38)
[2017-01-21] MEDS: DESITIN 4OZ/NYSTATIN 15 GRAM MIXTURE PASTE TOP SCH (11:25)
== END 2017-01-21 11:45 | disposition swing bed (61) | DRG 720 ==
LOC: N.ED 07:51 → SUATTDRO 10:09 → N.EDINP 10:09 → N.ICU 10:38 → N.2E 01-04 14:15 → N.ICU 01-08 10:26 → N.2E 01-13 11:25
PROVIDERS: ADMIT Internal Medicine; ATTEND Internal Medicine Cardiovascular Disease
PROC: COLONBX (2017-01-08 12:50)

== ENCOUNTER 2019-03-09 19:24 | Inpatient (IN) ==
[2019-03-09] MEDS ORDERED: AZITHROMYCIN INJ 500 MG in SODIUM CHLORIDE 0.9% 250 ML IV STA (20:26)
[2019-03-09] MEDS ORDERED: hydrALAZINE 20 MG/1 ML VIAL IV STA (20:26)
[2019-03-09] MEDS ORDERED: methylPREDNISolone SOD SUC 125 MG/2 ML VIAL IV STA (20:26)
[2019-03-09] MEDS ORDERED: ONDANSETRON 4 MG/2 ML VIAL IV STA ×2 (20:26→22:04)
[2019-03-09] MEDS ORDERED: ALBUTEROL 2.5 MG/3 ML NEB RESP TX SCH (20:30)
[2019-03-09 21:23] LABS: Basophils % 0.2 % (0.0-0.8); Eosinophils % 0.2 % (0.00-10.9); Hematocrit 35.7 VOL% (35.7-47.0); Hemoglobin 11.4 GM/DL (12.0-16.0); Immature Granulocytes % 0.2 %; Immature Granulocytes Absolute 0.02 #; Lymphocytes # 2.3 10*3/uL (1.4-4.0); Lymphocytes % 26.6 % (21.3-54.2); Mean Corpuscular HGB Conc 31.9 GM/DL (32-36); Mean Corpuscular Volume 94.7 FL (87-102); Mean Platelet Volume 9.7 FL (9.6-12.0); Monocytes % 7.6 % (1.7-12.7); Neutrophils % 65.2 % (38.7-73.9); Platelet Count 273 T/CUMM (130-400); Red Blood Count 3.77 MC/CUMM (3.8-5.5); Red Cell Distribution Width 13.4 % (9.3-17.3); White Blood Count 8.8 T/CUMM (4-12)
[2019-03-09 21:33] LABS: PT Patient Result 10.8 SECS; Partial Thromboplastin Time 27.6 SECS (0-40)
[2019-03-09 21:50] LABS: Apearance,Urine CLEAR (Clear); Bacteria,Urine Occasional /HPF (Few); Bilirubin,Urine Negative (Negative); Blood, Urine Small mg/dL (Negative); Glucose,Urine (UA) Negative (Negative); Ketones,Urine Negative (Negative); Nitrite,Urine Negative (Negative); Protein,Urine 100 MG/DL; RBC,Urine 2 /HPF (0-4); Squamous Epithelial Cell,Urine Occasional /HPF (0-10); Urine Color Colorless (Yellow); Urine Specific Gravity 1.004 (1.001-1.035); Urine Urobilinogen < 2.0 EU/DL (0.2-1.0); WBC,Urine 6 /HPF (0-6)
[2019-03-09 21:53] LABS: Alanine Aminotransferase 27 U/L (13-56); Albumin 3.4 G/DL (3.4-5.0); Alkaline Phosphatase 91 U/L (45-117); Aspartate Amino Transferase 56 U/L (0-37); Bilirubin,Total < 0.39 MG/DL (0.2-1.0); Blood Urea Nitrogen 8 MG/DL (7-18); CKMB % 2.9 %; Calcium 8.4 MG/DL (8.5-10.1); Glucose 91 MG/DL (74-106); Osmolality,Calculated 259.7 MOS/KG (273-304); Total Protein 9.1 G/DL (6.4-8.3); Troponin I < 0.015 NG/ML (0.00-0.045)
[2019-03-09] MEDS ORDERED: fentaNYL 100 MCG/2 ML VIAL IV STA (22:04)
[2019-03-09] MEDS ORDERED: LABETALOL 20 MG/4 ML SYRINGE IV PRN (23:56)
[2019-03-10 00:35] LABS: Basophils % 0.1 % (0.0-0.8); Hematocrit 34.5 VOL% (35.7-47.0); Hemoglobin 10.9 GM/DL (12.0-16.0); Immature Granulocytes % 0.4 %; Immature Granulocytes Absolute 0.03 #; Lymphocytes # 0.6 10*3/uL (1.4-4.0); Mean Corpuscular HGB Conc 31.6 GM/DL (32-36); Mean Corpuscular Volume 94.3 FL (87-102); Mean Platelet Volume 9.5 FL (9.6-12.0); Neutrophils % 91.5 % (38.7-73.9); Platelet Count 248 T/CUMM (130-400); Red Blood Count 3.66 MC/CUMM (3.8-5.5); Red Cell Distribution Width 13.3 % (9.3-17.3); White Blood Count 7.8 T/CUMM (4-12)
[2019-03-10 01:01] LABS: Band Neutrophils 1 % (0-10); Lymphocytes 4 % (20-55); Segmented Neutrophils 93 % (50-85)
[2019-03-10 01:01] LABS: Alanine Aminotransferase 21 U/L (13-56); Albumin 3.2 G/DL (3.4-5.0); Alkaline Phosphatase 81 U/L (45-117); Aspartate Amino Transferase 48 U/L (0-37); Bilirubin,Total < 0.39 MG/DL (0.2-1.0); Blood Urea Nitrogen 9 MG/DL (7-18); Calcium 8.1 MG/DL (8.5-10.1); Glucose 142 MG/DL (74-106); Osmolality,Calculated 268.2 MOS/KG (273-304); Total Protein 8.5 G/DL (6.4-8.3)
[2019-03-10 01:02] LABS: Platelet Estimate Adequate; Total Cells Counted 100
[2019-03-10 01:03] LABS: Risk Ratio 2.13; VLDL CHOLESTEROL 13.2 MG/DL
[2019-03-10 01:23] LABS: Barbiturates Screen,Urine Negative (Negative); Benzodiazepines Screen,Urine Negative (Negative); Cannabinoid Screen,Urine Negative (Negative); Opiate Screen,Urine Positive (Negative); Phencyclidine Screen,Urine Negative (Negative)
[2019-03-10] MEDS ORDERED: ALBUTEROL 2.5 MG/3 ML NEB RESP TX PRN (02:16)
[2019-03-10] MEDS: SODIUM CHLORIDE 0.9% 1,000 ML IV SCH ×2 (03:33→18:58)
[2019-03-10] MEDS: MORPHINE 4 MG/1 ML VIAL IV PRN ×2 (08:56→19:41)
[2019-03-10] MEDS: amLODIPine 5 MG TABLET PO SCH (11:03)
[2019-03-10] MEDS: ASPIRIN 325 MG TABLET PO SCH (11:03)
[2019-03-10] MEDS: PARoxetine 10 MG TABLET PO SCH (11:04)
[2019-03-10] MEDS: busPIRone 15 MG TABLET PO SCH ×3 (11:04→20:34)
[2019-03-10] MEDS: LORATADINE 10 MG TABLET PO SCH (11:05)
[2019-03-10] MEDS: methylPREDNISolone SOD SUC 40 MG/1 ML VIAL IV SCH ×2 (14:55→23:45)
[2019-03-10] MEDS: NICOTINE 21 MG/24 HR PATCH TRANSDERM PRN (16:00)
[2019-03-10] MEDS: ONDANSETRON 4 MG/2 ML VIAL IV PRN (19:35)
[2019-03-10] MEDS ORDERED: POTASSIUM CHLORIDE 20 MEQ TABLET PO PRN (20:16)
[2019-03-10] MEDS ORDERED: POTASSIUM CHLORIDE 20 MEQ TABLET PO STA (20:32)
[2019-03-10] MEDS: SIMVASTATIN 20 MG TABLET PO SCH (20:34)
[2019-03-11] MEDS: busPIRone 15 MG TABLET PO SCH ×3 (09:12→21:12)
[2019-03-11] MEDS: LORATADINE 10 MG TABLET PO SCH (09:12)
[2019-03-11] MEDS: ASPIRIN 325 MG TABLET PO SCH (09:12)
[2019-03-11] MEDS: PARoxetine 10 MG TABLET PO SCH (09:12)
[2019-03-11] MEDS: amLODIPine 5 MG TABLET PO SCH (09:13)
[2019-03-11] MEDS: MORPHINE 4 MG/1 ML VIAL IV PRN (09:13)
[2019-03-11] MEDS: methylPREDNISolone SOD SUC 40 MG/1 ML VIAL IV SCH ×3 (09:15→22:59)
[2019-03-11] MEDS: HEPARIN DRIP 25,000 UNITS/500 ML PREMIX IV SCH (21:12)
[2019-03-11] MEDS: SIMVASTATIN 20 MG TABLET PO SCH (21:12)
[2019-03-12 04:04] LABS: Calcium 8.2 MG/DL (8.5-10.1); Osmolality,Calculated 283.4 MOS/KG (273-304)
[2019-03-12] MEDS ORDERED: HEPARIN 5,000 UNIT/1 ML VIAL IV ONE (05:30)
[2019-03-12] MEDS: methylPREDNISolone SOD SUC 40 MG/1 ML VIAL IV SCH ×2 (06:42→14:12)
[2019-03-12] MEDS: MORPHINE 4 MG/1 ML VIAL IV PRN ×2 (08:54→14:12)
[2019-03-12] MEDS: PARoxetine 10 MG TABLET PO SCH (08:54)
[2019-03-12] MEDS: ASPIRIN 325 MG TABLET PO SCH (08:54)
[2019-03-12] MEDS: amLODIPine 5 MG TABLET PO SCH (08:54)
[2019-03-12] MEDS: busPIRone 15 MG TABLET PO SCH ×3 (08:54→21:05)
[2019-03-12] MEDS: LORATADINE 10 MG TABLET PO SCH (08:54)
[2019-03-12] MEDS: SIMVASTATIN 20 MG TABLET PO SCH (21:05)
[2019-03-12] MEDS: HEPARIN DRIP 25,000 UNITS/500 ML PREMIX IV SCH (23:30)
[2019-03-13] MEDS: methylPREDNISolone SOD SUC 40 MG/1 ML VIAL IV SCH ×4 (00:09→23:39)
[2019-03-13 02:51] LABS: Basophils % 0.1 % (0.0-0.8); Hematocrit 33.4 VOL% (35.7-47.0); Hemoglobin 10.4 GM/DL (12.0-16.0); Immature Granulocytes Absolute 0.11 #; Lymphocytes # 1.7 10*3/uL (1.4-4.0); Lymphocytes % 14.5 % (21.3-54.2); Mean Corpuscular HGB Conc 31.1 GM/DL (32-36); Mean Corpuscular Volume 95.4 FL (87-102); Mean Platelet Volume 9.7 FL (9.6-12.0); Monocytes % 6.4 % (1.7-12.7); Platelet Count 309 T/CUMM (130-400); Red Cell Distribution Width 13.5 % (9.3-17.3); White Blood Count 11.4 T/CUMM (4-12)
[2019-03-13 03:03] LABS: Calcium 8.1 MG/DL (8.5-10.1); Osmolality,Calculated 277.7 MOS/KG (273-304)
[2019-03-13] MEDS: amLODIPine 5 MG TABLET PO SCH (08:33)
[2019-03-13] MEDS: LORATADINE 10 MG TABLET PO SCH (08:33)
[2019-03-13] MEDS: PARoxetine 10 MG TABLET PO SCH (08:33)
[2019-03-13] MEDS: busPIRone 15 MG TABLET PO SCH ×3 (08:33→20:22)
[2019-03-13] MEDS: ASPIRIN 325 MG TABLET PO SCH (08:33)
[2019-03-13] MEDS: MORPHINE 4 MG/1 ML VIAL IV PRN ×2 (08:39→13:39)
[2019-03-13] MEDS ORDERED: guaiFENesin 200 MG/10 ML UDCUP PO PRN (15:02)
[2019-03-13] MEDS: SIMVASTATIN 20 MG TABLET PO SCH (20:22)
[2019-03-13] MEDS: HEPARIN DRIP 25,000 UNITS/500 ML PREMIX IV SCH (20:50)
[2019-03-14 05:32] LABS: Hematocrit 35.5 VOL% (35.7-47.0); Hemoglobin 11.3 GM/DL (12.0-16.0); Immature Granulocytes % 0.6 %; Immature Granulocytes Absolute 0.05 #; Lymphocytes # 1.3 10*3/uL (1.4-4.0); Lymphocytes % 14.9 % (21.3-54.2); Mean Corpuscular HGB Conc 31.8 GM/DL (32-36); Mean Corpuscular Volume 94.7 FL (87-102); Mean Platelet Volume 9.9 FL (9.6-12.0); Monocytes % 3.7 % (1.7-12.7); Neutrophils % 80.8 % (38.7-73.9); Platelet Count 313 T/CUMM (130-400); Red Blood Count 3.75 MC/CUMM (3.8-5.5); Red Cell Distribution Width 13.2 % (9.3-17.3); White Blood Count 8.4 T/CUMM (4-12)
[2019-03-14 05:57] LABS: Calcium 8.1 MG/DL (8.5-10.1); Osmolality,Calculated 281.5 MOS/KG (273-304)
[2019-03-14] MEDS: methylPREDNISolone SOD SUC 40 MG/1 ML VIAL IV SCH ×3 (08:40→22:00)
[2019-03-14] MEDS: MORPHINE 4 MG/1 ML VIAL IV PRN ×3 (10:15→19:35)
[2019-03-14] MEDS ORDERED: diphenhydrAMINE CAP 50 MG CAPSULE PO ONE (11:15)
[2019-03-14] MEDS: busPIRone 15 MG TABLET PO SCH ×3 (13:22→21:54)
[2019-03-14] MEDS: LORATADINE 10 MG TABLET PO SCH (13:41)
[2019-03-14] MEDS: PARoxetine 10 MG TABLET PO SCH (13:41)
[2019-03-14] MEDS: amLODIPine 5 MG TABLET PO SCH (13:41)
[2019-03-14] MEDS: ASPIRIN 325 MG TABLET PO SCH (13:41)
[2019-03-14] MEDS: SIMVASTATIN 20 MG TABLET PO SCH (21:53)
[2019-03-14] MEDS: APIXABAN 5 MG TABLET PO SCH (21:54)
[2019-03-15] MEDS: MORPHINE 4 MG/1 ML VIAL IV PRN ×3 (03:52→20:18)
[2019-03-15 04:48] LABS: Hematocrit 36.4 VOL% (35.7-47.0); Hemoglobin 11.2 GM/DL (12.0-16.0); Immature Granulocytes % 0.7 %; Immature Granulocytes Absolute 0.05 #; Lymphocytes # 1.3 10*3/uL (1.4-4.0); Lymphocytes % 18.1 % (21.3-54.2); Mean Corpuscular HGB Conc 30.8 GM/DL (32-36); Mean Platelet Volume 9.3 FL (9.6-12.0); Monocytes % 3.9 % (1.7-12.7); Neutrophils % 77.3 % (38.7-73.9); Platelet Count 337 T/CUMM (130-400); Red Blood Count 3.83 MC/CUMM (3.8-5.5); Red Cell Distribution Width 13.2 % (9.3-17.3); White Blood Count 7.1 T/CUMM (4-12)
[2019-03-15 05:16] LABS: Calcium 8.5 MG/DL (8.5-10.1)
[2019-03-15] MEDS: methylPREDNISolone SOD SUC 40 MG/1 ML VIAL IV SCH ×3 (06:18→23:48)
[2019-03-15] MEDS: PARoxetine 10 MG TABLET PO SCH (08:42)
[2019-03-15] MEDS: LORATADINE 10 MG TABLET PO SCH (08:42)
[2019-03-15] MEDS: ASPIRIN 325 MG TABLET PO SCH (08:42)
[2019-03-15] MEDS: busPIRone 15 MG TABLET PO SCH ×3 (08:42→20:17)
[2019-03-15] MEDS: APIXABAN 5 MG TABLET PO SCH ×2 (08:43→20:17)
[2019-03-15] MEDS: amLODIPine 5 MG TABLET PO SCH (08:43)
[2019-03-15] MEDS: SIMVASTATIN 20 MG TABLET PO SCH (20:18)
[2019-03-16] MEDS: methylPREDNISolone SOD SUC 40 MG/1 ML VIAL IV SCH ×3 (06:00→22:56)
[2019-03-16] MEDS: MORPHINE 4 MG/1 ML VIAL IV PRN ×3 (07:05→18:14)
[2019-03-16] MEDS: PARoxetine 10 MG TABLET PO SCH (09:19)
[2019-03-16] MEDS: amLODIPine 5 MG TABLET PO SCH (09:19)
[2019-03-16] MEDS: busPIRone 15 MG TABLET PO SCH ×3 (09:19→20:43)
[2019-03-16] MEDS: LORATADINE 10 MG TABLET PO SCH (09:19)
[2019-03-16] MEDS: APIXABAN 5 MG TABLET PO SCH ×2 (09:19→20:43)
[2019-03-16] MEDS: ASPIRIN 325 MG TABLET PO SCH (09:19)
[2019-03-16] MEDS: SIMVASTATIN 20 MG TABLET PO SCH (20:43)
[2019-03-17] MEDS: MORPHINE 4 MG/1 ML VIAL IV PRN ×4 (03:31→21:00)
[2019-03-17 04:48] LABS: Basophils % 0.2 % (0.0-0.8); Hematocrit 35.7 VOL% (35.7-47.0); Hemoglobin 11.2 GM/DL (12.0-16.0); Immature Granulocytes % 0.9 %; Immature Granulocytes Absolute 0.09 #; Lymphocytes # 1.1 10*3/uL (1.4-4.0); Lymphocytes % 10.8 % (21.3-54.2); Mean Corpuscular HGB Conc 31.4 GM/DL (32-36); Mean Corpuscular Volume 93.7 FL (87-102); Mean Platelet Volume 9.5 FL (9.6-12.0); Monocytes % 3.5 % (1.7-12.7); Neutrophils % 84.6 % (38.7-73.9); Platelet Count 338 T/CUMM (130-400); Red Blood Count 3.81 MC/CUMM (3.8-5.5); Red Cell Distribution Width 13.2 % (9.3-17.3); White Blood Count 10.1 T/CUMM (4-12)
[2019-03-17 05:21] LABS: Calcium 8.2 MG/DL (8.5-10.1); Osmolality,Calculated 280.8 MOS/KG (273-304)
[2019-03-17] MEDS: methylPREDNISolone SOD SUC 40 MG/1 ML VIAL IV SCH ×3 (06:20→23:50)
[2019-03-17] MEDS: ASPIRIN 325 MG TABLET PO SCH (08:54)
[2019-03-17] MEDS: LORATADINE 10 MG TABLET PO SCH (08:54)
[2019-03-17] MEDS: APIXABAN 5 MG TABLET PO SCH ×2 (08:54→21:00)
[2019-03-17] MEDS: busPIRone 15 MG TABLET PO SCH ×3 (08:54→21:00)
[2019-03-17] MEDS: amLODIPine 5 MG TABLET PO SCH (08:54)
[2019-03-17] MEDS: PARoxetine 10 MG TABLET PO SCH (08:54)
[2019-03-17] MEDS: SIMVASTATIN 20 MG TABLET PO SCH (21:00)
[2019-03-18] MEDS: POLYETHYLENE GLYCOL POWDER 17 GM PACK PO SCH (08:33)
[2019-03-18] MEDS: APIXABAN 5 MG TABLET PO SCH ×2 (08:34→21:20)
[2019-03-18] MEDS: amLODIPine 5 MG TABLET PO SCH (08:34)
[2019-03-18] MEDS: busPIRone 15 MG TABLET PO SCH ×3 (08:34→21:19)
[2019-03-18] MEDS: PARoxetine 10 MG TABLET PO SCH (08:34)
[2019-03-18] MEDS: ASPIRIN 325 MG TABLET PO SCH (08:34)
[2019-03-18] MEDS: methylPREDNISolone SOD SUC 40 MG/1 ML VIAL IV SCH ×3 (08:35→23:20)
[2019-03-18] MEDS: LORATADINE 10 MG TABLET PO SCH (08:35)
[2019-03-18] MEDS: NICOTINE 21 MG/24 HR PATCH TRANSDERM PRN (08:48)
[2019-03-18] MEDS: MORPHINE 4 MG/1 ML VIAL IV PRN ×3 (10:34→22:58)
[2019-03-18] MEDS: SIMVASTATIN 20 MG TABLET PO SCH (21:20)
[2019-03-18] MEDS: ONDANSETRON 4 MG/2 ML VIAL IV PRN (22:58)
[2019-03-19] MEDS: busPIRone 15 MG TABLET PO SCH (09:19)
[2019-03-19] MEDS: POLYETHYLENE GLYCOL POWDER 17 GM PACK PO SCH (09:19)
[2019-03-19] MEDS: APIXABAN 5 MG TABLET PO SCH (09:19)
[2019-03-19] MEDS: ASPIRIN 325 MG TABLET PO SCH (09:19)
[2019-03-19] MEDS: PARoxetine 10 MG TABLET PO SCH (09:19)
[2019-03-19] MEDS: amLODIPine 5 MG TABLET PO SCH (09:19)
[2019-03-19] MEDS: methylPREDNISolone SOD SUC 40 MG/1 ML VIAL IV SCH (09:20)
[2019-03-19] MEDS: LORATADINE 10 MG TABLET PO SCH (09:22)
[2019-03-19] MEDS: MORPHINE 4 MG/1 ML VIAL IV PRN (11:44)
[2019-03-19 12:19] VITALS: BP 150/61
== END 2019-03-19 14:20 | disposition home health service (06) | DRG 45 ==
LOC: N.ED 19:24 → N.EDINP 23:56 → SUPCPDRO 23:56 → SUATTDRO 23:56 → N.4E 03-10 01:57
PROVIDERS: ADMIT Family Medicine; ATTEND Internal Medicine